=== PATIENT | female | born 1940 | race Caucasian/White ===

== ENCOUNTER → 2019-02-26 | Outpatient (CLI) | payer OTHER, MEDICARE ==
[~2019-02-26] MED LIST: ALL10TAB28; FLUTISP; LISI10TA2; PRAV40TA2
--- NOTE | 2019-02-27 07:53 | REP ---
The left hip and three views : Comparison is 02/03/2014. There is no fracture or dislocation. Mineralization and joint spaces are normal. There are no calcifications or foreign bodies. Impression: Negative left hip There is no interval change. . Electronically Signed by Richard iJmenes MD 02/26/2019 05:01 P
== END ==
LOC: M WUC 16:38
PROVIDERS: ATTEND Physician Assistant
DX: M25.552 Pain in left hip (principal)

== ENCOUNTER 2019-05-09 07:46 | Inpatient (IN) | payer OTHER, MEDICARE ==
[~2019-05-09] VITALS: Ht 165.1 cm; Wt 92.0 kg
[2019-05-09] VITALS (8 sets, daily range): BP systolic 99–151; BP diastolic 54–70
[~2019-05-09 07:46] MED LIST changes: -ALL10TAB28; +ALL10TAB29; +LISI10TA15; -LISI10TA2; -PRAV40TA2; +PRAV40TA2 PO
[2019-05-09] MEDS ORDERED: LISI10TA4 PO (07:57)
[2019-05-09] MEDS ORDERED: FISH1000 PO (07:57)
[2019-05-09 08:36] LABS: BASO # 0.1 10^3/uL (0.0-0.2); BASO % 0.9 % (0.0-1.0); EOS # 0.5 10^3/uL (0.0-0.5); EOS % 6.5 % (0.0-3.0); HEMATOCRIT 36.5 % (36.0-47.0); HEMOGLOBIN 11.3 g/dl (12.0-15.5); LYMPH # 2.2 10^3/uL (1.5-5.0); LYMPH % 26.6 % (24.0-44.0); MEAN CORPUSCULAR HEMOGLOBIN 30.1 pg (27.0-33.0); MEAN CORPUSCULAR VOLUME 97.1 fl (80.0-96.0); MONO # 0.7 10^3/uL (0.0-0.8); MONO % 8.7 % (0.0-5.0); NEUTROPHILS # 4.6 10^3/uL (1.5-8.5); NEUTROPHILS % 56.8 % (36.0-66.0); PLATELET COUNT, AUTOMATED 268 10^3/uL (150-450); RED BLOOD COUNT 3.76 10^6/uL (4.00-5.40); WHITE BLOOD COUNT 8.2 10^3/uL (4.0-10.0)
[2019-05-09 08:50] LABS: INR 1.11; PROTHROMBIN TIME 14.1 SECONDS (11.8-14.0)
[2019-05-09 08:51] LABS: PARTIAL THROMBOPLASTIN TIME 27.6 SECONDS (25.0-38.4)
[2019-05-09 09:02] LABS: ALBUMIN 2.8 GM/DL (3.2-5.2); BILIRUBIN,TOTAL 0.2 MG/DL (0.2-1.0); CALCIUM LEVEL 8.4 MG/DL (8.8-10.2); CREATININE FOR GFR 1.03 MG/DL (0.55-1.30); GLOMERULAR FILTRATION RATE 55.2 (>39); POTASSIUM SERUM 4.3 MEQ/L (3.5-5.1); TOTAL PROTEIN 6.3 GM/DL (6.4-8.2)
[2019-05-09] MEDS: GASTROGRAFIN SOLUTION 30ML PO SCH ×2 (09:10→09:46)
[2019-05-09] MEDS ORDERED: ISOVUE-370 76% 100ML VIAL (Q9967) As Ordered ONE (10:10)
--- NOTE | 2019-05-09 10:59 | REP ---
CT abdomen and pelvis with IV and oral contrast: History: Lower GI bleeding. No comparison CT study. CT contrast dose: 100 mL of intravenous Isovue 370. CT findings: Preliminary digital behavioral health director radiographs demonstrate a normal bowel gas pattern. There are clips in the right upper quadrant. Axial CT images show that the lung bases are essentially clear. There is a granulomatous calcification in the left lung base. The liver is normal in size, homogeneous in texture. There are clips in the gallbladder fossa. There is a small sliding-type hiatal hernia. There is a ventral hernia transmitting a small quantity of abdominal fat just to the right of midline in the upper abdomen. There is a very small umbilical hernia which also transmits abdominal fat. No other abdominal wall defect. The spleen has a multilobulated appearance. The kidneys enhance symmetrically. There is a peripheral cortical cyst in the left kidney 1 cm in diameter. There is a cyst in the lower pole of the right kidney which measures 2.2 cm in diameter. The kidneys are slightly malrotated. Normal caliber aorta is seen. There is pancolonic diverticulosis. This is fairly extensive. The diverticulosis is most pronounced in the sigmoid and descending segment. There is no CT evidence of diverticulitis. No colonic mass lesion is appreciated. Normal appendix is seen. Small bowel mass lesion is observed. The pancreas shows no abnormality. There is a large subserosal uterine myoma with dystrophic calcifications. This uterine fibroid measures 8.3 x 6.2 x 6.2 cm. No ovarian abnormality is seen. Urinary bladder is intact. No pelvic adenopathy is seen. Impression: Pancolonic diverticulosis, most extensively involving the left colon. There is an 8.3 cm uterine leiomyoma. There are small renal cortical cysts. Post cholecystectomy. Small hiatal hernia and fat-containing epigastric ventral and umbilical abdominal wall hernias. Electronically Signed by Linus Lomax MD 05/09/2019 11:36 A
[2019-05-09] MEDS ORDERED: SM HTAB3 PO (11:17)
[2019-05-09] MEDS ORDERED: ECOT81TA5 PO (11:17)
[2019-05-09] MEDS ORDERED: ADVI200T PO (11:17)
[2019-05-09] MEDS ORDERED: FURO20TA2 PO (11:17)
[2019-05-09] MEDS ORDERED: MELA3TAB41 PO (11:17)
[2019-05-09] MEDS ORDERED: DEXTROSE 50% 50 ML SYRINGE IV PRN (11:30)
[2019-05-09] MEDS ORDERED: GLUCOSE 4 GM CHEW TABLET PO PRN (11:30)
[2019-05-09] MEDS ORDERED: GLUCAGON FOR INJ 1 MG VIAL (J1610) SC PRN (11:30)
[2019-05-09 11:48] LABS: PERCENT SATURATION 21.9 % (13.2-45.0); THYROID STIMULATING HORMONE 0.887 uIU/ML (0.358-3.740)
[2019-05-09] MEDS: HumaLOG INSULIN (NovoLOG) PER UNIT SC SCH ×4 (12:00→21:00)
[2019-05-09 12:17] LABS: HEMOGLOBIN A1c 6.2 %
[2019-05-09] MEDS ORDERED: FUROSEMIDE 40 MG/4 ML VIAL (J1940) IV SCH (14:00)
[2019-05-09 15:04] LABS: HEMATOCRIT 34.8 % (36.0-47.0)
--- NOTE | 2019-05-09 15:22 | HPE ---
DATE OF ADMISSION: 05/09/2019 CHIEF COMPLAINT: Bright red blood per rectum. HISTORY OF PRESENT ILLNESS: 78-year-old female with a history of hypertension, hypercholesterolemia, obesity, body mass index of [address] Delfina De La Cruz in the office. Was in her usual state of health until 2:00 a.m. this morning, while she was watching television sitting up, when she thought she had soiled herself. She then went to the bathroom once and noted bright red blood. Went back to watching television, changed her clothes and had two more episodes for a total of three episodes. She had no lightheadedness, dizziness, chest pain, pressure or tightness, shortness of breath, change in gait. Says that she has had no prior episodes in the past. Denies any nausea, vomiting, abdominal pain, hematemesis, melena or black tarry stools. Patient has had no prior colonoscopy in the past and usually takes aspirin 81 mg and usually takes Aleve two tablets nightly for several years. The patient denies any epigastric discomfort, back pain, dysuria, urgency or frequency. She has had a 10 pound weight loss for the past few months, which is intentional and says that her primary care was happy about the weight loss due to obesity with BMI 33.4. No changes in appetite. Patient, otherwise denies any dysphagia, odynophagia. Denies any depression. Complains of chronic knee pain and hip pain for which she sees Dr. Castro for. Aside from Aleve, patient does not take any other nonsteroidal anti-inflammatories. In the emergency room, she was noted to be heme positive. CT abdomen and pelvis showed diverticular disease with diverticulosis extensively involving the left colon with an 8.3 uterine leiomyoma. She has a small hiatal hernia and fat-containing epigastric ventral umbilical abdominal wall hernias post cholecystectomy. No pelvic adenopathy. No colonic masses appreciated with normal appendix, small bowel mass lesions is observed. Patient states that she would prefer not to undergo any surgery and was hoping to go home tomorrow after blood transfusion and followup as an outpatient for colonoscopy or esophagogastroduodenoscopy. She agrees with stopping her aspirin and Aleve for now due to active bleeding. PAST MEDICAL HISTORY: Dyspepsia. Osteoarthritis. Degenerative joint disease (DJD). Cervical spine. Left thumb. Right shoulder. Right thumb. Lumbosacral moderate canal stenosis. Asymmetric goiter status post biopsy in 2002. Multinodular goiter. Allergic rhinitis. Renal cysts. Preventricular contractions (PVCs) status post echocardiogram. Hypertensive heart disease, [place] [facility]. No valvular disease. Grade 1 diastolic dysfunction. Lipomatous septal hypertrophy. Type 2 diabetes. Obesity, BMI of 33.4 Allergic rhinitis. PAST SURGICAL HISTORY: Cholecystectomy. Five vaginal deliveries, one surviving daughter. HOME MEDICATIONS: - Aleve two tablets nightly - melatonin nightly - aspirin 81 mg daily - azelastine nasal spray - Benadryl as needed - Bilberry daily - calcium daily - Centrum silver daily - cetirizine daily - Hair, skin and nails daily - fish oil - lisinopril - hydrochlorothiazide nightly - pravastatin 40 mg daily - Refresh as needed - Systane eye drops as needed - vitamin E daily ALLERGIES: AUGMENTIN FAMILY HISTORY: Patient is adopted and says that she has another adopted brother. SOCIAL HISTORY: Patient lives alone. Has been using a cane due to hip problems. Sees. Dr. Jimy Kee. She is a FULL CODE and has been managing well at home. She does her own errands, groceries, laundry and has had no other issues. She is able to do all of her activities of daily living (ADLs) without any difficulty. Formerly smoked previously less than 10 cigarettes a day. Quit 20 years ago. Patient denies any alcohol use at all. Previously drank [place] beer. She denies any recreational drug use. 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 Her daughter is in [place], [place]. Healthcare proxy. She is a FULL CODE with trial of oral intubation and cardiopulmonary resuscitation but states that if she is not to recover that it would be okay to remove her from a ventilator. Daughter's name is Reji Grande, phone number [phone]. REVIEW OF SYSTEMS: Per history of present illness (HPI). 12-point system otherwise negative. PHYSICAL EXAMINATION: Temperature 97.1, pulse 92, respiratory rate 19, blood pressure 106/53, 94% in room air. Generally, patient is awake, alert, oriented times three. No pallor. No icterus. No use of respiratory accessory muscles. Pupils round, reactive to light. Extraocular muscles are intact. No cervical lymphadenopathy. No jugular venous distention (JVD). Lungs are clear to auscultation. No wheezing, rales or rhonchi. Heart: S1, S2, sinus rhythm. Abdomen is soft, nontender. Nondistended. Positive bowel sounds in four quadrants. No rebound or guarding. No abdominal bruits. Extremities: No cyanosis, clubbing or pitting edema. LABORATORY DATA: White count 8.2, hemoglobin 11, hematocrit 36, platelet count 268. Previous hemoglobin was in 2000 and hemoglobin 13, hematocrit of 40. Sodium 142, potassium 4.3, chloride 108, bicarbonate 30, BUN 26, creatinine 1.03, glucose 151, A1c of 6.2, calcium 8.4, iron 58, TIBC 265, albumin of 2.8, TSH 0.887. CT abdomen and pelvis 05/09/2019: There are clips in the right upper quadrant. Lung bases are essentially clear. Granulomatous calcification in the left lung base. Liver is normal homogeneous in nature. Clips in gallbladder fossa. There is small sliding hiatal hernia. There is a ventral hernia transmitting a small amount of abdominal fat just to the right of midline and upper abdomen. There is very small umbilical hernia, which also transmits abdominal fat. No other abdominal wall defect. Spleen has a multilobulated appearance. Kidneys enhance symmetrically. Peripheral cortical cysts in the left kidney 1 cm in diameter. Cysts in the lower pole of the right kidney, which measures 2.2 cm in diameter. Kidneys are slightly malrotated, normal caliber. Aorta is seen pancolonic diverticulosis. This is fairly extensive. Diverticulosis is less pronounced in the sigmoid and descending segment. There is no CT evidence of diverticulitis. No colonic mass lesion is appreciated. Normal appendix. Small bowel mass lesion is observed. Pancreas shows no abnormality. There is a large subserosal uterine myoma with dystrophic calcifications. Uterine fibroid measuring 8.3 x 6.2 x 6.2 cm. No ovarian abnormality is seen. Urinary bladder is intact. No pelvic adenopathy is seen. IMPRESSION: Woo colonic diverticulosis most extensively involving the left colon. There is an 8.3 cm uterine leiomyoma. There are small renal cortical cysts post cholecystectomy. There is a small hiatal hernia and fat containing epigastric, ventral and umbilical abdominal wall hernias. ASSESSMENT/PLAN: This is a 78-year-old female with history of hypertension, diabetes, obesity, BMI of 31, dyspepsia, osteoarthritis, multinodular goiter, allergic rhinitis, no prior colonoscopy presents with acute onset of bright red blood per rectum with chronic use of aspirin and Aleve. The patient will be admitted as an inpatient for two midnights with the following issues: Bright red blood per rectum: Lower GI bleed. Patient has diverticular bleeding with pancolonic diverticulitis, diverticulosis, which is fairly extensive. Patient's aspirin and Aleve have been discontinued. She will be given red blood cell transfusion two units. Consent has been signed. Repeat hemoglobin and hematocrit every 12 hours. Patient does not want to have any surgery. She has been instructed to followup with gastroenterology referral as outpatient for immediate colonoscopy. There is an incidental finding of a small bowel lesion that is somewhat concerning. Will refer to [facility]. If patient should continue to have ongoing lower GI bleed, patient may need a colonoscopy and EGD during admission. Capsule endoscopy as an outpatient. Small Bowel Mass. pt did not want surgery, but urged to follow up with GI and PCP to refer to surgery for exploratory laparotomy to rule out GIST tumor versus malignancy. Pt will need a close follow up with her PCP for immediate referral to Surgery for evaluation. Grade 1 diastolic dysfunction due to hypertensive heart disease. Patient's Lasix and lisinopril will be held due to low blood pressure of 90-100 systolic. Will resume when the patient's blood pressure is improved. Hiatal hernia and umbilical hernias: Will start on proton pump inhibitor (PPI) for now. Patient denies any dysphagia or odynophagia that would necessitate an upper GI series. Dyslipidemia: Continue on Pravastatin once GI bleed has resolved. . Chronic insomnia: May take melatonin if no active GI bleed. Obesity and metabolic syndrome: BMI of 33.4, hypertension, diabetes. Check lipid profile in the morning. Adjust medications if needed. Type 2 diabetes: Continue on clear essential liquids this evening. If no ongoing GI bleed, advanced to consistent carbohydrate, no added salt in the morning. Continue her fingersticks every morning and night with coverage. Compression stockings for deep venous thrombosis (DVT) prophylaxis. CODE STATUS: FULL CODE. Trial of intubation and cardiopulmonary resuscitation. Healthcare proxy is the patient's daughter Reji Grande phone number [phone]. [facility]
--- NOTE | 2019-05-09 20:35 | ECGEPIP ---
[facility] - ED Test Date: 2019-05-09 Pat Name: BETZY ALMEIDA Department: Room: [place] [address] Gender: Female Home Help Aide: KYLIE : 1940 Requested By: Harvinder Hudson Order Number: [id number] Reading MD: Harvinder Simental Measurements Intervals [place] Rate: 97 P: 66 RI: 193 QRS: 73 QRSD: 77 T: 45 QT: 308 QTc: 392 Interpretive Statements SINUS RHYTHM POSSIBLE LEFT ATRIAL ENLARGEMENT POOR R WAVE PROGRESSION NO PRIORS FOR COMPARISON Electronically Signed on 05-09-2019 20:35:16 EDT by Harvinder Simental
[2019-05-09] MEDS ORDERED: MELATONIN 3MG (PATIENT'S OWN MED) PO SCH (21:00)
[2019-05-09 21:21] LABS: HEMOGLOBIN 11.6 g/dl (12.0-15.5)
[2019-05-09] MEDS: diphenhydrAMINE 50 MG CAP PO PRN (21:26)
[2019-05-09] MEDS: PANTOPRAZOLE 40MG INJ (PROTONIX) (C9113) IV SCH (21:26)
[2019-05-10] VITALS: BP 100/50
[2019-05-10 04:00] VITALS: BP 100/51
[2019-05-10 05:57] LABS: HEMATOCRIT 33.3 % (36.0-47.0); HEMOGLOBIN 10.6 g/dl (12.0-15.5); MEAN CORPUSCULAR HEMOGLOBIN 29.9 pg (27.0-33.0); MEAN CORPUSCULAR HGB CONC 31.8 g/dl (32.0-36.5); MEAN CORPUSCULAR VOLUME 93.8 fl (80.0-96.0); PLATELET COUNT, AUTOMATED 229 10^3/uL (150-450); RED BLOOD COUNT 3.55 10^6/uL (4.00-5.40); WHITE BLOOD COUNT 7.8 10^3/uL (4.0-10.0)
[2019-05-10 06:25] LABS: BLOOD UREA NITROGEN 22 MG/DL (7-18); CALCIUM LEVEL 8.2 MG/DL (8.8-10.2); CARBON DIOXIDE LEVEL 32 MEQ/L (21-32); CHLORIDE LEVEL 106 MEQ/L (98-107); CREATININE FOR GFR 0.87 MG/DL (0.55-1.30); GLOMERULAR FILTRATION RATE > 60.0 (>39); GLUCOSE, FASTING 94 MG/DL (70-100); POTASSIUM SERUM 4.3 MEQ/L (3.5-5.1); SODIUM LEVEL 140 MEQ/L (136-145)
[2019-05-10] MEDS: HumaLOG INSULIN (NovoLOG) PER UNIT SC SCH ×4 (07:30→21:00)
[2019-05-10 08:00] VITALS: BP 129/60
[2019-05-10] MEDS: PANTOPRAZOLE 40MG INJ (PROTONIX) (C9113) IV SCH ×2 (08:54→21:18)
[2019-05-10] MEDS ORDERED: SLF 3 ML SYR IV PRN (10:45)
[2019-05-10 12:00] VITALS: BP 113/57
[2019-05-10 12:31] LABS: HEMATOCRIT 32.6 % (36.0-47.0); HEMOGLOBIN 10.6 g/dl (12.0-15.5); MEAN CORPUSCULAR HEMOGLOBIN 30.7 pg (27.0-33.0); MEAN CORPUSCULAR HGB CONC 32.5 g/dl (32.0-36.5); MEAN CORPUSCULAR VOLUME 94.5 fl (80.0-96.0); PLATELET COUNT, AUTOMATED 224 10^3/uL (150-450); RED BLOOD COUNT 3.45 10^6/uL (4.00-5.40); WHITE BLOOD COUNT 7.5 10^3/uL (4.0-10.0)
[2019-05-10] MEDS: SLF 3 ML SYR IV SCH ×2 (14:00→21:19)
--- NOTE | 2019-05-10 15:26 | IPNPDOC ---
Date Seen The patient was seen on 05/10/19. Progress Note SUBJECTIVE: 78-year-old female with past medical history of hypertension, hyperlipidemia and diabetes, was admitted for GI bleed. She reports bright red blood per rectum starting to 3 days ago, last episode of bloody bowel movement was earlier today; patient received 1 unit of PRBC yesterday with subsequent downtrending hemoglobin. She is currently sleepy and fatigued, denies any shortness of breath, chest pain, abdominal pain, nausea, vomiting at this time. CT scan of the abdomen was consistent with adan-colonic diverticulosis, denies any previous history of GI bleed. 10 point review of system was negative except for above OBJECTIVE PHYSICAL EXAMINATION: VITAL SIGNS: Please see below. GENERAL: No Distress HEENT: Normocephalic, atraumatic, moist mucous membranes CARDIOVASCULAR: S1, S2. RESPIRATORY: Clear to auscultation. ABDOMINAL: Soft, nontender, nondistended, positive bowel sounds EXTREMITIES: Range of Motion intact NEUROLOGICAL: Alert and oriented 3, no focal deficits PSYCHOLOGICAL: Home LABORATORY DATA, IMAGING STUDIES, MICROBIOLOGY: Please see below. DVT prophylaxis ordered?: No ASSESSMENT AND PLAN: 78-year-old female with past medical history of hypertension, diabetes, presents with acute GI bleed, likely diverticular. PROBLEMS: 1. GI bleed: Clear liquid diet, PPI, GI eval pending, plan for colonoscopy tomorrow. Status post 1 unit PRBC yesterday, hemoglobin downtrending, repeat H&H in the afternoon stable, we'll continue to monitor and transfuse as needed. 2. Hypertension: Home meds being held for low normal blood pressure, will resume when stabil ized. 3. Diabetes mellitus: Sliding scale insulin daily at bedtime and before meals DVT prophylaxis: SCDs. GI prophylaxis: PPI VS, I&O, 24H, Fishbone Vital Signs/I&O Vital Signs Date Time Temp Pulse Resp B/P (MAP) Pulse Ox O2 Delivery O2 Flow Rate FiO2 05/10/19 12:00 98.7 90 18 113/57 (75) 93 05/09/19 11:31 Room Air I&O- Last 24 Hours up to 6 AM 05/10/19 06:00 Intake Total 590 ml Output Total 550 ml Balance 40 ml Laboratory Data 24H LABS Laboratory Tests 2 05/09/19 17:22: Bedside Glucose (Misc Panel) 88 10/9/19 05:32: Nucleated Red Blood Cells % (auto) 0.0, Anion Gap 2L, Glomerular Filtration Rate > 60.0, Blood Urea Nitrogen 22H, Creatinine 0.87, Sodium Level 140, Potassium Level 4.3, Chloride Level 106, Carbon Dioxide Level 32, Calcium Level 8.2L 05/10/19 12:15: Nucleated Red Blood Cells % (auto) 0.0 CBC/BMP Laboratory Tests 05/09/19 21:09 05/10/19 05:32 Red Blood Count 3.55 L, Mean Corpuscular Volume 93.8, Mean Corpuscular Hemoglobin 29.9, Mean Corpuscular Hemoglobin Concent 31.8 L, Red Cell Distribution Width 14.7 H, Calcium Level 8.2 L 05/10/19 12:15 Red Blood Count 3.45 L, Mean Corpuscular Volume 94.5, Mean Corpuscular Hemoglobin 30.7, Mean Corpuscular Hemoglobin Concent 32.5, Red Cell Distribution Width 14.7 H Microbiology Microbiology 05/10/19 Stool Occult Blood (MARISOL) - Final, Complete 05/10/19 Gastrointestinal Tract Panel (PCR) - Final, Complete QUINTON ARGUELLO MD May 10, 2019 15:26
[2019-05-10 16:00] VITALS: BP 120/58
--- NOTE | 2019-05-10 17:35 | CR.PDOC ---
General Date of Consultation: May 10, 2019 Referring Provider: ROSE MARIE GILLIAM MD Attending Physician: CALISTA PENA MD Consultation Primary physician/ hospitalist: Dr. Delfina Chandra/ Dr. Gilliam Reason for consult: Rectal bleeding. HPI: 78-year-old female patient with history of hypertension, hypercholesterolemia, obesity (BMI 33), presented to ER for complaints of bloody bowel movements at home. GI was consulted for the same. Patient reports having acute onset bright red rectal bleeding, couple of days ago, Patient reports having acute onset rectal bleeding, with bright red blood, started while at rest, no associated abdominal pain, not resolving, so came to ER. Patient denies any prior similar episodes, no constipation prior to symptoms onset. Patient does report taking da tanesha NSAIDs for few weeks prior to symptoms onset. Pertinent negative GI symptoms: Patient denies nausea, vomiting, diarrhea, abdominal pain, loss of appetite, early satiety or unintentional weight loss. No history of hematemesis, melena or hematochezia. Patient reports regular bowel movements. Review of Systems: GI: as stated above CVS: No chest pain, No palpitations, No leg swelling. RS: No Shortness of breath, No Wheezing, no cough QUALITY ASSURANCE PRACTICE MANAGER: No dizziness, No motor weakness, No sensory problems Hematology: No bruising, No gum bleeding, Musculoskeletal: No joint pain, ambulating well. Skin: No rash : No hematuria, No burning sensation of the urine ENT: No ear discharge/ pain, No dysphagia. Eyes: No photophobia. Home medications: reviewed. Antithrombotic agents - on ASA 81 mg. Medical h/o: As above. Surgical h/o: Tubal ligation Social h/o: Alcohol- Denies , tobacco- Denies , IVDA/ drugs- Denies . Family h/o of GI cancers No GI cancers Prior Endoscopies: None in Past. Prior GI evaluation: None in [facility] Exam: Vitals: reviewed General: Alert and oriented x 3, not in distress HEENT: Mild pallor, no icterus. Normal oropharynx, NO cervical lymph nodes. Chest: symmetric with bilateral clear air entry, CVS: S1, S2 heard, normal, no murmurs . Abdomen: non-distended, no surgical scars, soft, non-tender, no palpable masses, normal bowel sounds heard. Rectal exam: Patient refused / Deferred at this time in view of scheduled colonoscopy. Extremities: no pedal edema, pulses palpable. QUALITY ASSURANCE PRACTICE MANAGER: no focal motor or sensory deficits. Moves all extremities Skin: no rash. Labs: reviewed. Imaging tests: reviewed CT abdomen images reviewed with radiology No small bowel lesion. She does have large uterine fibroid and renal cyst. Impression: - 78 year old female patient with acute onset painless rectal bleeding, and prior use of NSAIDsm labs showing drop in Hemoglobin and elevated BUN/ Cr Likely lower GI bleeding from Diverticulosis vs Less likely Colon mass vs AVMs. Also need to rule out upper GI bleeding. Recommendations: - Patient educated about the test results, possible differential diagnoses and All questions answered. - Monitor H/H and transfuse as needed to keep Hemoglobin around 8-9gm/dL. - No contraindication for aspirin. Patient can continue it if needed for cardiac purposes. - Will schedule for urgent EGD and Colonoscopy after bowel prep. - The procedures, indications, risks (bleeding, perforation, infection, hypotension, respiratory depression, allergy, need for endotracheal intubation, surgery, colostomy, cardiac arrest, even ), benefits, limitations (e.g., missing a lesion), and all other alternatives (including no intervention) were explained to the patient who understood and agreed for the procedures. - Follow operative notes for post procedure recommendations. Plan of care discussed with patient and primary team. Patient verbalized understanding and agreed with the plan. Vital Signs/I&O Vital Signs Date Time Temp Pulse Resp B/P (MAP) Pulse Ox O2 Delivery O2 Flow Rate FiO2 05/10/19 16:00 98.4 95 18 120/58 (78) 94 05/09/19 11:31 Room Air I&O- Last 24 Hours up to 6 AM 05/10/19 06:00 Intake Total 590 ml Output Total 550 ml Balance 40 ml Laboratory Data CBC/BMP Laboratory Tests 05/09/19 21:09 05/10/19 05:32 Red Blood Count 3.55 L, Mean Corpuscular Volume 93.8, Mean Corpuscular Hemoglobin 29.9, Mean Corpuscular Hemoglobin Concent 31.8 L, Red Cell Distribution Width 14.7 H, Calcium Level 8.2 L 05/10/19 12:15 Red Blood Count 3.45 L, Mean Corpuscular Volume 94.5, Mean Corpuscular Hemoglobin 30.7, Mean Corpuscular Hemoglobin Concent 32.5, Red Cell Distribution Width 14.7 H Allergies Coded Allergies: No Known Allergies (Unverified , 05/09/19) Home Medications Scheduled Aspirin (Ecotrin) 81 Mg Tablet.dr, 81 MG PO QHS, (Reported) Furosemide (Furosemide) 20 Mg Tablet, 20 MG PO BID, (Reported) Ibuprofen (Advil) 200 Mg Tablet, 400 MG PO QHS, (Reported) Lisinopril (Lisinopril) 10 Mg Tablet, 10 MG PO QHS, (Reported) Melatonin (Melatonin) 3 Mg Tablet, 3 MG PO QHS, (Reported) Multivitamin with Minerals (Hair, Skin and Nails) 1 Each Tablet, 1 TAB PO DAILY, (Reported) [place]-3 Fatty Acids/Fish Oil (Fish Oil 1,000 mg Capsule) 1 Each Capsule, 1,000 MG PO QHS, (Reported) Pravastatin Sodium (Pravastatin Sodium) 40 Mg Tablet, 40 MG PO QHS, (Reported) CALISTA PENA MD May 10, 2019 17:35
[2019-05-10 20:00] VITALS: BP 140/67
[2019-05-10] MEDS ORDERED: BISACODYL 5 MG TAB PO ONE (20:00)
[2019-05-10] MEDS ORDERED: GOLYTELY SOLN 4000 ML BTL PO ONE (20:00)
[2019-05-10 20:15] LABS: HEMATOCRIT 33.8 % (36.0-47.0); HEMOGLOBIN 10.8 g/dl (12.0-15.5)
[2019-05-11] VITALS (7 sets, daily range): BP systolic 104–155; BP diastolic 55–76
[2019-05-11] MEDS: diphenhydrAMINE 50 MG CAP PO PRN ×2 (01:08→23:04)
[2019-05-11 03:06] LABS: HEMATOCRIT 35.7 % (36.0-47.0); HEMOGLOBIN 11.4 g/dl (12.0-15.5)
[2019-05-11 03:10] LABS: MEAN CORPUSCULAR HEMOGLOBIN 30.1 pg (27.0-33.0); MEAN CORPUSCULAR HGB CONC 32.2 g/dl (32.0-36.5); MEAN CORPUSCULAR VOLUME 93.5 fl (80.0-96.0); PLATELET COUNT, AUTOMATED 239 10^3/uL (150-450); RED BLOOD COUNT 3.82 10^6/uL (4.00-5.40); WHITE BLOOD COUNT 9.4 10^3/uL (4.0-10.0)
[2019-05-11 03:38] LABS: BLOOD UREA NITROGEN 16 MG/DL (7-18); CALCIUM LEVEL 8.3 MG/DL (8.8-10.2); CARBON DIOXIDE LEVEL 29 MEQ/L (21-32); CHLORIDE LEVEL 106 MEQ/L (98-107); CREATININE FOR GFR 0.77 MG/DL (0.55-1.30); GLOMERULAR FILTRATION RATE > 60.0 (>39); GLUCOSE, FASTING 93 MG/DL (70-100); POTASSIUM SERUM 4.2 MEQ/L (3.5-5.1); SODIUM LEVEL 140 MEQ/L (136-145)
[2019-05-11] MEDS: SLF 3 ML SYR IV SCH ×3 (05:38→22:28)
[2019-05-11] MEDS: HumaLOG INSULIN (NovoLOG) PER UNIT SC SCH ×4 (07:30→21:00)
[2019-05-11] MEDS ORDERED: MIRALAX *UNIT DOSE* 17GM PACKET PO PRN ×2 (08:00→12:00)
[2019-05-11] MEDS: PANTOPRAZOLE 40MG INJ (PROTONIX) (C9113) IV SCH ×2 (09:21→21:56)
[2019-05-11 09:30] LABS: HEMATOCRIT 33.7 % (36.0-47.0); HEMOGLOBIN 10.9 g/dl (12.0-15.5)
[2019-05-11] MEDS ORDERED: PROPOFOL 200 MG/20 ML VIAL As Ordered ONE (10:57)
[2019-05-11] MEDS ORDERED: LIDOCAINE 2% INJ 100 MG/5 ML SDV (FOR ANES.) As Ordered ONE (10:57)
[2019-05-11] MEDS ORDERED: fentaNYL 100 MCG/2 ML INJECTION (J3010) As Ordered ONE (10:57)
--- NOTE | 2019-05-11 11:54 | ROOR ---
Patient Name: Maru Guaman Procedure Date: 05/11/2019 10:55 AM Date of : 1940 Age: 78 Room: [facility] Gender: Female Note Status: Finalized Procedure: Upper GI endoscopy Indications: Acute post hemorrhagic anemia Providers: Abdulkadir Leon MD Referring MD: Delfina NEWMAN MD Requesting Provider: Medicines: Monitored Anesthesia Care Complications: No immediate complications. Procedure: Pre-Anesthesia Assessment: - Prior to the procedure, a History and Physical was performed, and patient medications and allergies were reviewed. The patient is competent. The risks and benefits of the procedure and the sedation options and risks were discussed with the patient. All questions were answered and informed consent was obtained. Patient identification and proposed procedure were verified by the physician, the nurse and the anesthesiologist in the procedure room. Mental Status Examination: alert and oriented. Airway Examination: normal oropharyngeal airway and neck mobility. Respiratory Examination: clear to auscultation. CV Examination: normal. Prophylactic Antibiotics: The patient does not require prophylactic antibiotics. Prior Anticoagulants: The patient has taken no previous anticoagulant or antiplatelet agents. ASA Grade Assessment: III - A patient with severe systemic disease. After reviewing the risks and benefits, the patient was deemed in satisfactory condition to undergo the procedure. The anesthesia plan was to use monitored anesthesia care (MAC). Immediately prior to administration of medications, the patient was re-assessed for adequacy to receive sedatives. The heart rate, respiratory rate, oxygen saturations, blood pressure, adequacy of pulmonary ventilation, and response to care were monitored throughout the procedure. The physical status of the patient was re-assessed after the procedure. The Endoscope was introduced through the mouth, and advanced to the second part of duodenum. The upper GI endoscopy was accomplished without difficulty. The patient tolerated the procedure well. Findings: The Z-line was regular and was found 37 cm from the incisors. A medium-sized hiatal hernia was present. Scattered moderate inflammation characterized by erosions, friability and granularity was found in the gastric antrum. Biopsies were taken with a cold forceps for Helicobacter pylori testing. Verification of patient identification for the specimen was done by the physician and nurse using the patient's name, date and medical record number. Estimated blood loss was minimal. Localized nodular mucosa was found in the duodenal bulb. Biopsies were taken with a cold forceps for histology. The second portion of the duodenum was normal. Impression: - Z-line regular, 37 cm from the incisors. - Medium-sized hiatal hernia. - Gastritis. Biopsied. - Nodular mucosa in the duodenal bulb. Biopsied. - Normal second portion of the duodenum. Recommendation: - Patient has a contact number available for emergencies. The signs and symptoms of potential delayed complications were discussed with the patient. Return to normal activities tomorrow. Written discharge instructions were provided to the patient. - High fiber diet. - Continue present medications. 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 - No ibuprofen, naproxen, or other non-steroidal anti-inflammatory drugs. - Await pathology results. - If Biopsy shows H. pylori will need therapy with antibiotic course.. - Return to primary care physician. Abdulkadir Leon MD Abdulkadir Leon MD 05/11/2019 11:53:54 AM Electronically signed by Abdulkadir Leon MD Number of Addenda: 0 Note Initiated On: 05/11/2019 10:55 AM Estimated Blood Loss: Estimated blood loss was minimal.
--- NOTE | 2019-05-11 12:22 | ROOR ---
Patient Name: Maru Guaman Procedure Date: 05/11/2019 10:55 AM Date of : 1940 Age: 78 Room: [facility] Gender: Female Note Status: Finalized Procedure: Colonoscopy Indications: Hematochezia Providers: Abdulkadir Leon MD Referring MD: Delfina NEWMAN MD Requesting Provider: Medicines: Monitored Anesthesia Care Complications: No immediate complications. Estimated blood loss: Minimal. Procedure: Pre-Anesthesia Assessment: - Prior to the procedure, a History and Physical was performed, and patient medications and allergies were reviewed. The patient is competent. The risks and benefits of the procedure and the sedation options and risks were discussed with the patient. All questions were answered and informed consent was obtained. Patient identification and proposed procedure were verified by the physician, the nurse and the anesthesiologist in the procedure room. Mental Status Examination: alert and oriented. Airway Examination: normal oropharyngeal airway and neck mobility. Respiratory Examination: clear to auscultation. CV Examination: normal. Prophylactic Antibiotics: The patient does not require prophylactic antibiotics. Prior Anticoagulants: The patient has taken no previous anticoagulant or antiplatelet agents. ASA Grade Assessment: III - A patient with severe systemic disease. After reviewing the risks and benefits, the patient was deemed in satisfactory condition to undergo the procedure. The anesthesia plan was to use monitored anesthesia care (MAC). Immediately prior to administration of medications, the patient was re-assessed for adequacy to receive sedatives. The heart rate, respiratory rate, oxygen saturations, blood pressure, adequacy of pulmonary ventilation, and response to care were monitored throughout the procedure. The physical status of the patient was re-assessed after the procedure. The Colonoscope was introduced through the anus and advanced to the terminal ileum, with identification of the appendiceal orifice and IC valve. The colonoscopy was performed without difficulty. The patient tolerated the procedure well. The quality of the bowel preparation was good. The terminal ileum, ileocecal valve, appendiceal orifice, and rectum were photographed. Scope insertion time was 3 minutes. Scope withdrawal time was 11 minutes. The total duration of the procedure was 14 minutes. Findings: The perianal and digital rectal examinations were normal. The terminal ileum appeared normal. A 5 mm polyp was found in the cecum. The polyp was sessile. The polyp was removed with a cold snare. Resection and retrieval were complete. Verification of patient identification for the specimen was done by the physician and nurse using the patient's name, date and medical record number. Estimated blood loss was minimal. Two sessile polyps were found in the transverse colon. The polyps were 5 to 10 mm in size. These polyps were removed with a cold snare. Resection and retrieval were complete. To close a defect after polypectomy, one hemostatic clip was successfully placed. There was no bleeding at the end of the procedure. Multiple small and large-mouthed diverticula were found from sigmoid to ascending colon. There was no evidence of diverticular bleeding. Non-bleeding external and internal hemorrhoids were found during retroflexion. The hemorrhoids were medium-sized. Impression: - The examined portion of the ileum was normal. - One 5 mm polyp in the cecum, removed with a cold snare. Resected and retrieved. - Two 5 to 10 mm polyps in the transverse colon, removed with a cold snare. Resected and retrieved. Clip was placed. - Severe diverticulosis from sigmoid to ascending colon. There was no evidence of diverticular bleeding. - Non-bleeding external and internal hemorrhoids. Recommendation: - Patient has a contact number available for emergencies. The signs and symptoms of potential delayed complications were discussed with the patient. Return to normal activities tomorrow. Written discharge instructions were provided to the patient. - High fiber diet. - Continue present medications. - Colace capsule(s) orally 100 mg BID. - Senokot-S 2 tablets PO q HS. - Miralax 1 capful (17 grams) in 8 ounces of water PO PRN if persistent constipation despite above medication. - Await pathology results. - Repeat colonoscopy in 3 - 5 years for surveillance based on pathology results and depending on clinical and functional status. - Telephone GI clinic for pathology results in 2 weeks. - Return to primary care physician. Abdulkadir Leon MD Abdulkadir Leon MD 05/11/2019 12:22:00 PM Electronically signed by Abdulkadir Leon MD Number of Addenda: 0 Note Initiated On: 05/11/2019 10:55 AM Estimated Blood Loss: Estimated blood loss was minimal.
[2019-05-11 15:13] LABS: HEMATOCRIT 32.4 % (36.0-47.0); HEMOGLOBIN 10.3 g/dl (12.0-15.5)
--- NOTE | 2019-05-11 15:43 | IPNPDOC ---
Date Seen The patient was seen on 05/11/19. Progress Note SUBJECTIVE: 78 y/o F with PMH of hypertension, hyperlipidemia and diabetes, was admitted for GI bleed. She reports bright red blood per rectum starting to 3 days ago, last episode of bloody bowel movement was earlier today; patient received 1 unit of PRBC with subsequent downtrending hemoglobin. Pt was seen and examined at bedside. Pt stated that she is feeling fine and did not have any complaint. Denied active GI bleeding. 10 point review of system was negative except for above OBJECTIVE PHYSICAL EXAMINATION: VITAL SIGNS: Please see below. GENERAL: No Distress HEENT: Normocephalic, atraumatic, moist mucous membranes CARDIOVASCULAR: S1, S2. RESPIRATORY: Clear to auscultation. ABDOMINAL: Soft, nontender, nondistended, positive bowel sounds EXTREMITIES: Range of Motion intact NEUROLOGICAL: Alert and oriented 3, no focal deficits PSYCHOLOGICAL: Home LABORATORY DATA, IMAGING STUDIES, MICROBIOLOGY: reviewed, Please see below. DVT prophylaxis ordered?: IPC, no chemical ppx in view of concern of GI bleeding. ASSESSMENT AND PLAN: 78-year-old female with past medical history of hypertension, diabetes, presents with acute GI bleed, likely diverticular. PROBLEMS: 1. GI bleed: Clear liquid diet, PPI, Status post 1 unit PRBC - GI recommendations appreciated; s/p colonoscopy and EGD. will f/u repeat H/H 2. Hypertension: will resume home meds 3. Diabetes mellitus: Sliding scale insulin daily at bedtime and before meals DVT prophylaxis: SCDs. GI prophylaxis: PPI VS, I&O, 24H, Fishbone Vital Signs/I&O Vital Signs Date Time Temp Pulse Resp B/P (MAP) Pulse Ox O2 Delivery O2 Flow Rate FiO2 05/11/19 12:20 97.1 92 18 155/74 (101) 92 05/09/19 11:31 Room Air I&O- Last 24 Hours up to 6 AM 05/11/19 06:00 Intake Total 2110 ml Output Total 201 ml Balance 1909 ml Laboratory Data 24H LABS Laboratory Tests 2 05/10/19 17:06: Bedside Glucose (Misc Panel) 89 05/10/19 21:35: Bedside Glucose (Misc Panel) 99 05/11/19 02:58: Nucleated Red Blood Cells % (auto) 0.0, Anion Gap 5L, Glomerular Filtration Rate > 60.0, Blood Urea Nitrogen 16, Creatinine 0.77, Sodium Level 140, Potassium Level 4.2, Chloride Level 106, Carbon Dioxide Level 29, Calcium Level 8.3L 05/11/19 12:41: Bedside Glucose (Misc Panel) 101 CBC/BMP Laboratory Tests 05/10/19 19:53 05/11/19 02:58 Red Blood Count 3.82 L, Mean Corpuscular Volume 93.5, Mean Corpuscular Hemoglobin 30.1, Mean Corpuscular Hemoglobin Concent 32.2, Red Cell Distribution Width 14.4, Calcium Level 8.3 L 05/11/19 09:07 05/11/19 15:03 Microbiology Microbiology 05/10/19 Stool Occult Blood (MARISOL) - Final, Complete 05/10/19 Gastrointestinal Tract Panel (PCR) - Final, Complete FRANCI WALDEN MD May 11, 2019 15:43
[2019-05-11 21:07] LABS: HEMOGLOBIN 9.9 g/dl (12.0-15.5)
[2019-05-11] MEDS: DOCUSATE SODIUM 100 MG CAP PO SCH (21:56)
[2019-05-12 05:41] LABS: HEMATOCRIT 28.9 % (36.0-47.0); HEMOGLOBIN 9.2 g/dl (12.0-15.5); MEAN CORPUSCULAR HEMOGLOBIN 30.4 pg (27.0-33.0); MEAN CORPUSCULAR HGB CONC 31.8 g/dl (32.0-36.5); MEAN CORPUSCULAR VOLUME 95.4 fl (80.0-96.0); PLATELET COUNT, AUTOMATED 213 10^3/uL (150-450); RED BLOOD COUNT 3.03 10^6/uL (4.00-5.40); WHITE BLOOD COUNT 7.5 10^3/uL (4.0-10.0)
[2019-05-12 05:58] LABS: BLOOD UREA NITROGEN 18 MG/DL (7-18); CALCIUM LEVEL 7.7 MG/DL (8.8-10.2); CARBON DIOXIDE LEVEL 30 MEQ/L (21-32); CHLORIDE LEVEL 111 MEQ/L (98-107); CREATININE FOR GFR 0.83 MG/DL (0.55-1.30); GLOMERULAR FILTRATION RATE > 60.0 (>39); GLUCOSE, FASTING 93 MG/DL (70-100); POTASSIUM SERUM 3.9 MEQ/L (3.5-5.1); SODIUM LEVEL 146 MEQ/L (136-145)
[2019-05-12 06:00] VITALS: BP 165/72
[2019-05-12] MEDS: SLF 3 ML SYR IV SCH (06:05)
[2019-05-12] MEDS: HumaLOG INSULIN (NovoLOG) PER UNIT SC SCH ×2 (07:21→12:00)
[2019-05-12 07:36] VITALS: BP 128/71
[2019-05-12] MEDS: PANTOPRAZOLE 40MG INJ (PROTONIX) (C9113) IV SCH (08:57)
[2019-05-12] MEDS: DOCUSATE SODIUM 100 MG CAP PO SCH (08:57)
[2019-05-12 11:33] VITALS: BP 140/72
[2019-05-12 12:09] LABS: HEMATOCRIT 32.8 % (36.0-47.0); HEMOGLOBIN 10.5 g/dl (12.0-15.5); MEAN CORPUSCULAR HEMOGLOBIN 30.4 pg (27.0-33.0); MEAN CORPUSCULAR VOLUME 95.1 fl (80.0-96.0); PLATELET COUNT, AUTOMATED 250 10^3/uL (150-450); RED BLOOD COUNT 3.45 10^6/uL (4.00-5.40); WHITE BLOOD COUNT 8.4 10^3/uL (4.0-10.0)
[2019-05-12] MEDS ORDERED: PROTPAK PO (12:58)
--- NOTE | 2019-05-12 15:34 | DS.PDOC ---
Discharge Summary General Date of Admission May 09, 2019 at 11:14 Date of Discharge 05/12/2019 Attending Physician: QUINTON ARGUELLO MD Discharge Summary PROCEDURES PERFORMED DURING STAY: EGD and colonoscopy. ADMITTING DIAGNOSES: 1. GI bleed. DISCHARGE DIAGNOSES: 1. GI bleed. COMPLICATIONS/CHIEF COMPLAINT: Diverticulosis Of Colon With Hemorrhage. HISTORY OF PRESENT ILLNESS: 78-year-old female with past medical history of diabetes, hypertension, admitted for GI bleed, status post 1 unit of PRBC, underwent EGD and colonoscopy, extensive diverticular disease, no active source of bleeding was identified. Patient has not had any bloody bowel movements for the past 24-48 hours, tolerating diet, without any complaints, ambulating, clear for discharge by GI. Patient likely had lower GI bleed, source presumed to be diverticulosis. HOSPITAL COURSE: As above. DISCHARGE MEDICATIONS: Please see below. ALLERGIES: Please see below. PHYSICAL EXAMINATION: VITAL SIGNS: Please see below. GENERAL: No distress HEENT: Normocephalic, atraumatic, moist mucous membranes NECK: Supple CARDIOVASCULAR EXAMINATION: S1, S2, no murmurs RESPIRATORY EXAMINATION: Clear to auscultation, no wheezing ABDOMINAL EXAMINATION: Soft, nontender, nondistended, positive bowel sounds EXTREMITIES: Patient motion intact SKIN: No rash NEUROLOGICAL EXAMINATION: Alert and oriented 3, no focal deficits PSYCHIATRIC EXAMINATION: Calm and cooperative LABORATORY DATA: Please see below. IMAGING: CT abdomen with extensive diverticular disease PROGNOSIS: Good ACTIVITY: As tolerated. DIET: High fiber, consistent carbs DISCHARGE PLAN: Please follow with gastroenterology and PCP within 1-2 weeks DISPOSITION: 01 Home, Self-Care. DISCHARGE INSTRUCTIONS: 1. . As above DISCHARGE CONDITION: Stable. TIME SPENT ON DISCHARGE: Greater than 34 minutes. Vital Signs/I&Os Vital Signs Date Time Temp Pulse Resp B/P (MAP) Pulse Ox O2 Delivery O2 Flow Rate FiO2 05/12/19 11:33 97.8 99 18 140/72 (94) 92 05/09/19 11:31 Room Air I&O- Last 24 Hours up to 6 AM 05/12/19 06:00 Intake Total 330 ml Output Total 300 ml Balance 30 ml Laboratory Data Labs 24H Laboratory Tests 2 05/12/19 05:17: Nucleated Red Blood Cells % (auto) 0.0, Anion Gap 5L, Glomerular Filtration Rate > 60.0, Blood Urea Nitrogen 18, Creatinine 0.83, Sodium Level 146H, Potassium L evel 3.9, Chloride Level 111H, Carbon Dioxide Level 30, Calcium Level 7.7L 05/12/19 11:41: Nucleated Red Blood Cells % (auto) 0.0 CBC/BMP Laboratory Tests 05/11/19 20:52 05/12/19 05:17 Red Blood Count 3.03 L, Mean Corpuscular Volume 95.4, Mean Corpuscular Hemoglobin 30.4, Mean Corpuscular Hemoglobin Concent 31.8 L, Red Cell Distribution Width 14.2, Calcium Level 7.7 L 05/12/19 11:41 Red Blood Count 3.45 L, Mean Corpuscular Volume 95.1, Mean Corpuscular Hemoglobin 30.4, Mean Corpuscular Hemoglobin Concent 32.0, Red Cell Distribution Width 14.2 Microbiology Microbiology 05/10/19 Stool Occult Blood (MARISOL) - Final, Complete 05/10/19 Gastrointestinal Tract Panel (PCR) - Final, Complete Discharge Medications Scheduled Aspirin (Ecotrin) 81 Mg Tablet.dr, 81 MG PO QHS, (Reported) Furosemide (Furosemide) 20 Mg Tablet, 20 MG PO BID, (Reported) Lisinopril (Lisinopril) 10 Mg Tablet, 10 MG PO QHS, (Reported) Melatonin (Melatonin) 3 Mg Tablet, 3 MG PO QHS, (Reported) Multivitamin with Minerals (Hair, Skin and Nails) 1 Each Tablet, 1 TAB PO DAILY, (Reported) [place]-3 Fatty Acids/Fish Oil (Fish Oil 1,000 mg Capsule) 1 Each Capsule, 1,000 MG PO QHS, (Reported) Pantoprazole Sodium (Protonix) 40 Mg Granpkt.dr, 40 MG PO DAILY Pravastatin Sodium (Pravastatin Sodium) 40 Mg Tablet, 40 MG PO QHS, (Reported) Allergies Coded Allergies: No Known Allergies (Unverified , 05/09/19) QUINTON ARGUELLO MD May 12, 2019 15:34
[2019-05-12] MEDS ORDERED: SENNA 8.6 MG TAB (SENOKOT) PO SCH (21:00)
== END 2019-05-12 14:35 | disposition home health service (06) | DRG 378 ==
LOC: M ED 07:46 → EDBD 07:46 → M ED INP 11:14 → M PCU 13:46
PROVIDERS: ADMIT General Practice; ATTEND Internal Medicine
PROC: 0DBH8ZX Excision of Cecum, Via Natural or Artificial Opening Endoscopic, Diagnostic (ICD-10-PCS; 2019-05-11)
PROC: 0DB68ZX Excision of Stomach, Via Natural or Artificial Opening Endoscopic, Diagnostic (ICD-10-PCS; principal; 2019-05-11 13:10)
DX: K57.91 Diverticulosis of intestine, part unspecified, without perforation or abscess with bleeding (principal); D62 Acute posthemorrhagic anemia; E11.9 Type 2 diabetes mellitus without complications; Z79.82 Long term (current) use of aspirin; Z79.899 Other long term (current) drug therapy; E78.00 Pure hypercholesterolemia, unspecified; E66.9 Obesity, unspecified; Z68.33 Body mass index [BMI] 33.0-33.9, adult; M19.90 Unspecified osteoarthritis, unspecified site; E04.9 Nontoxic goiter, unspecified; I11.9 Hypertensive heart disease without heart failure; G47.00 Insomnia, unspecified; K42.9 Umbilical hernia without obstruction or gangrene; E78.5 Hyperlipidemia, unspecified; D12.0 Benign neoplasm of cecum

== ENCOUNTER 2019-05-15 16:05 | Inpatient (IN) | payer MEDICARE, OTHER ==
[~2019-05-15] VITALS: Ht 165.1 cm; Wt 94.9 kg
[~2019-05-15 16:05] MED LIST changes: +ADVI200T PO; +ECOT81TA5 PO; +FISH1000 PO; +FURO20TA2 PO; +LISI10TA4 PO; +MELA3TAB41 PO; +PROTPAK PO; +SM HTAB3 PO
[2019-05-15 17:25] LABS: BLOOD UREA NITROGEN 21 MG/DL (7-18); CALCIUM LEVEL 8.4 MG/DL (8.8-10.2); CARBON DIOXIDE LEVEL 32 MEQ/L (21-32); CHLORIDE LEVEL 105 MEQ/L (98-107); CREATININE FOR GFR 0.76 MG/DL (0.55-1.30); GLOMERULAR FILTRATION RATE > 60.0 (>39); GLUCOSE, FASTING 108 MG/DL (70-100); POTASSIUM SERUM 3.9 MEQ/L (3.5-5.1); SODIUM LEVEL 142 MEQ/L (136-145)
[2019-05-15 17:30] LABS: HEMATOCRIT 32.7 % (36.0-47.0); HEMOGLOBIN 10.3 g/dl (12.0-15.5); MEAN CORPUSCULAR HEMOGLOBIN 30.7 pg (27.0-33.0); MEAN CORPUSCULAR HGB CONC 31.5 g/dl (32.0-36.5); MEAN CORPUSCULAR VOLUME 97.3 fl (80.0-96.0); PLATELET COUNT, AUTOMATED 278 10^3/uL (150-450); RED BLOOD COUNT 3.36 10^6/uL (4.00-5.40); WHITE BLOOD COUNT 6.6 10^3/uL (4.0-10.0)
[2019-05-15] MEDS ORDERED: PANT40TA3 PO (19:30)
[2019-05-15] MEDS ORDERED: CETI10TA PO (19:30)
[2019-05-15] MEDS ORDERED: ACETAMINOPHEN TAB 650MG DOSE (2X325MG) PO PRN (20:15)
--- NOTE | 2019-05-15 20:26 | HPEPDOC ---
General Date of Admission 05/15/19 Date of Service: May 15, 2019 Primary Care Physician: Delfina De La Cruz Chief Complaint The patient is a 78-year-old female admitted with a reason for visit of Gi Blee d. Source: Patient Exam Limitations: No limitations Timing/Duration: This afternoon Severity: Mild, Moderate Associated Symptoms: Other (none) History of Present Illness 78 years old white female with past medical history of dyspepsia, osteoarthritis, degenerative joint disease cervical spine problems, spinal stenosis, multinodular goiter hypertensive heart disease, grade 1 diastolic dysfunction, obesity, was recently discharged from this hospital after she had a EGD and colonoscopy done and also had a polypectomy of 3 polyps in cecum and transverse colon done and was found to have severe diverticulosis and ascending colon. Patient presented with painless passing of bright red blood per rectum since today. She had 1 large episode in the ED, but denies any abdominal pain, nausea, vomiting, chest pain, shortness of breath, etc. Home Medications Scheduled Aspirin (Ecotrin) 81 Mg Tablet.dr, 81 MG PO QHS, (Reported) Cetirizine HCl (Cetirizine HCl) 10 Mg Tablet, 10 MG PO DAILY, (Reported) Furosemide (Furosemide) 20 Mg Tablet, 20 MG PO BID, (Reported) Lisinopril (Lisinopril) 10 Mg Tablet, 10 MG PO QHS, (Reported) Melatonin (Melatonin) 3 Mg Tablet, 3 MG PO QHS, (Reported) Multivitamin with Minerals (Hair, Skin and Nails) 1 Each Tablet, 1 TAB PO DAILY, (Reported) [place]-3 Fatty Acids/Fish Oil (Fish Oil 1,000 mg Capsule) 1 Each Capsule, 1,000 MG PO QHS, (Reported) Pantoprazole Sodium (Pantoprazole Sodium) 40 Mg Tablet.dr, 40 MG PO DAILY, (Reported) Pravastatin Sodium (Pravastatin Sodium) 40 Mg Tablet, 40 MG PO QHS, (Reported) Allergies Coded Allergies: No Known Allergies (Unverified , 05/09/19) Past Medical History Medical History Dyspepsia, osteoarthritis, degenerative joint disease, spinal stenosis, hypertensive heart disease, diastolic dysfunction, Surgical History Cholecystectomy, EGD and colonoscopy Family History Significant Family History: No pertinent family hx Social History * Smoker: Denies Alcohol: Denies Drugs: denies A-FIB/CHADSVASC A-FIB History Current/History of A-Fib/PAF?: No Review of Systems Constitutional: Denies: Chills, Fever, Malaise, Night Sweats, Weakness, Fatigue, Weight Loss, Lethargy, Other Eyes: Denies: Pain, Vision change, Conjunctivae inflammation, Eyelid inflammation, Redness, Other ENT: Denies: Head Aches, Ear Pain, Dysphagia, Sinus Congestion, Post Nasal Dr ip, Sore Throat, Epistaxis, Other Symptoms Skin: Denies: Rash, Lesions, Jaundice, Bruising, Itching, Dry, Breakdown, Nail Changes, Other Pulmonary: Denies: Dyspnea, Cough, Pleuritic Chest Pain, Other Symptoms Cardiovascular: Denies: Chest Pain, Palpitations, Orthopnea, Paroxysmal Noc. Dyspnea, Edema, Lt Headedness, Other Symptoms Gastrointestinal: Reports: Other Symptoms (, bright red blood per rectum) Genitourinary: Denies: Dysuria, Frequency, Incontinence, Hematuria, Retention, Other Symptoms Hematologic: Denies: Bruising, Bleeding Excessively, Petecchia, Purpura, Enlarged Lymph Nodes, Other Hematologic Endocrine: Denies: Polydipsia, Polyphagia, Polyuria, Heat Intolerance, Cold Intolerance, Other Endocrine Sx Musculoskeletal: Denies: Neck Pain, Back Pain, Shoulder Pain, Arm Pain, Hand Pain, Leg Pain, Foot Pain, Joint Pain, Muscle Pain, Spasms, Other Symptoms Neurological: Denies: Weakness, Numbness, Incoordination, Change in speech, Confusion, Seizures, Other Symptoms Psych: Denies: Mood Normal, Anxiety, Depression, Memory Issues, Thoughts of Self Harm, Anger, Thoughts of Harming Other, Other Psych Physical Examination General Exam: Positive: Alert, Cooperative Eye Exam: Positive: PERRLA, Conjunctiva & lids normal ENT Exam: Positive: Atraumatic, Mucous membr. moist/pink Neck Exam: Positive: Supple Chest Exam: Positive: Clear to auscultation, Normal air movement Heart Exam: Positive: Rate Normal, Normal S1, Normal S2 Abdomen Exam: Positive: Normal bowel sounds, Soft Extremity Exam: Positive: Normal pulses Skin Exam: Positive: Nl turgor and temperature Neuro Exam: Positive: Strength at 5/5 X4 ext, Sensation Intact Psych Exam: Positive: Mental status NL, Oriented x 3 Vital Signs Vital Signs Date Time Temp Pulse Resp B/P (MAP) Pulse Ox O2 Delivery O2 Flow Rate FiO2 05/15/19 19:54 87 20 136/64 (88) 97 Room Air 05/15/19 16:13 97.7 Laboratory Data Labs 24H Laboratory Tests 2 05/15/19 16:35: Nucleated Red Blood Cells % (auto) 0.0, Anion Gap 5L, Glomerular Filtration Rate > 60.0, Blood Urea Nitrogen 21H, Creatinine 0.76, Sodium Level 142, Potassium Level 3.9, Chloride Level 105, Carbon Dioxide Level 32, Calcium Level 8.4L CBC/BMP Laboratory Tests 05/15/19 16:35 Red Blood Count 3.36 L, Mean Corpuscular Volume 97.3 H, Mean Corpuscular Hemoglobin 30.7, Mean Corpuscular Hemoglobin Concent 31.5 L, Red Cell Distribution Width 14.3, Calcium Level 8.4 L Problems (1) Diverticulosis of colon with hemorrhage Status: Acute Problem Text: 78 years old white female with past medical history of diverticulosis, status post polypectomy, status post GI bleed recently discharged after had EGD and colonoscopy done also had a polypectomy for 3 polyps and no active source of bleeding was noted on last admission. Patient came back again with complaining of bright red blood per rectum since today and also had 1 episode of bright red blood per rectum in ED, otherwise patient is asymptomatic. Most likely is a diverticular bleed as it's painless with no other associated symptoms Admitted to PCU for close observation classroom monitor Follow H&H Transfuse as needed Continue Protonix GI consult called discuss with Dr. Petty, monitor H&H. Conservative medical management until seen by Dr chávez in am. Bilateral SCDs for DVT prophylaxis Continue home meds (2) Diverticulosis Status: Chronic Problem Text: History of extensive diverticulosis . No bleeding was noted on last colonoscopy Monitor H&H Other as per GIs recommendations (3) HTN (hypertension) Status: Chronic Problem Text: Under control Continue home meds Plan / VTE VTE Prophylaxis Ordered?: Yes DELMY MORGAN MD May 15, 2019 20:26
[2019-05-15] MEDS ORDERED: ASPIRIN 81 MG ENTERIC TAB PO SCH (21:00)
[2019-05-15 22:30] VITALS: BP 143/65
[2019-05-15 23:06] LABS: HEMATOCRIT 29.7 % (36.0-47.0); HEMOGLOBIN 9.4 g/dl (12.0-15.5); MEAN CORPUSCULAR HEMOGLOBIN 29.8 pg (27.0-33.0); MEAN CORPUSCULAR HGB CONC 31.6 g/dl (32.0-36.5); MEAN CORPUSCULAR VOLUME 94.3 fl (80.0-96.0); PLATELET COUNT, AUTOMATED 282 10^3/uL (150-450); RED BLOOD COUNT 3.15 10^6/uL (4.00-5.40); WHITE BLOOD COUNT 9.2 10^3/uL (4.0-10.0)
[2019-05-15] MEDS: LISINOPRIL 10 MG TAB PO SCH (23:46)
[2019-05-15] MEDS: diphenhydrAMINE 25 MG CAP PO PRN (23:46)
[2019-05-15] MEDS: PRAVASTATIN 20 MG TAB PO SCH (23:46)
[2019-05-16] VITALS: BP 133/69
[2019-05-16 04:00] VITALS: BP 102/50
[2019-05-16 04:52] LABS: HEMATOCRIT 27.5 % (36.0-47.0); HEMOGLOBIN 8.7 g/dl (12.0-15.5); MEAN CORPUSCULAR HEMOGLOBIN 30.3 pg (27.0-33.0); MEAN CORPUSCULAR HGB CONC 31.6 g/dl (32.0-36.5); MEAN CORPUSCULAR VOLUME 95.8 fl (80.0-96.0); PLATELET COUNT, AUTOMATED 264 10^3/uL (150-450); RED BLOOD COUNT 2.87 10^6/uL (4.00-5.40)
[2019-05-16 05:19] LABS: ALBUMIN 2.5 GM/DL (3.2-5.2); ALT/SGPT 27 U/L (12-78); BILIRUBIN,TOTAL 0.3 MG/DL (0.2-1.0); BLOOD UREA NITROGEN 23 MG/DL (7-18); CARBON DIOXIDE LEVEL 34 MEQ/L (21-32); CHLORIDE LEVEL 105 MEQ/L (98-107); CREATININE FOR GFR 0.77 MG/DL (0.55-1.30); GLOMERULAR FILTRATION RATE > 60.0 (>39); GLUCOSE, FASTING 97 MG/DL (70-100); POTASSIUM SERUM 3.9 MEQ/L (3.5-5.1); SODIUM LEVEL 141 MEQ/L (136-145); TOTAL PROTEIN 4.9 GM/DL (6.4-8.2)
[2019-05-16 08:00] VITALS: BP 110/65
[2019-05-16] MEDS: FUROSEMIDE 20 MG TAB PO SCH ×2 (09:24→16:05)
[2019-05-16] MEDS: PANTOPRAZOLE 40MG TAB (PROTONIX) PO SCH (09:24)
[2019-05-16] MEDS: CETIRIZINE (ZyrTEC) 10 MG TAB PO SCH (09:24)
--- NOTE | 2019-05-16 11:21 | IPNPDOC ---
Text Note Date of Service The patient was seen on 05/16/19. NOTE Maru Guaman is a 78 year old female with significant past medical history including dyspepsia, osteoarthritis, degenerative joint disease, spinal stenosis, grade 1 diastolic dysfunction, obesity and hypertensive heart disease presented to the emergency department yesterday with bright red blood per rectum. Patient was recently discharged from the hospital after having an EGD and colonoscopy done. She also had a polypectomy of 3 polyps in the cecum and transverse colon done, that was found to have severe diverticulosis and ascending colon. Patient states she has 2 episodes of bright red blood per rectum, which lead to her coming to the ED. She had one additional episode while in the emergency department. She was seen at beside this morning. She denies any additional bowel movements overnight and states that she is doing relatively well. She denies any symptoms of abdominal pain, shortness of breath, chest pain, nausea, vomiting, diarrhea, lightheadedness, headaches, dizziness and fevers. Patient only complain is hunger, as she hasn't ate since yesterday, pending GI consult. Review of systems Constitutional- Denies fever, chills and night sweats HEENT- denies headache, hearing loss, ringing sensation, Cardiovascular- denies chest pain and palpation Respiratory- denies shortness of breath or wheezing Gastrointestinal- denies nausea, vomiting, diarrhea, constipation or abdominal pain Musculoskeletal- denies weakness on upper and lower extremities Neurological- denies motor and sensory deficits Endocrine- denies polyuria, polydipsia, polyphagia Genitourinary- denies hematuria or dysuria Psychology- denies depression and anxiety Physicial Exams Vitals: Temp 97.9, Pulse 83, Respiratory Rate 18, Blood Pressure 110/65 General- alert, oriented to person, place and time HEENT- Normacephalic, atraumatic, External ear canals patent, TM with nonprotruding , tonsils 2 + without exudates, oral mucosa clear Neck- supple without lymphadenopathy Respiratory: thorax symmetric with good expansion, lungs clear with no rales or rhonchi, no crackles Cardiovascular- normal s1 and s2, without s3 and s3, no murmur, rubs or clicks Abdominal- no present bowel sounds, no tenderness on palpation, soft, no masses noted Extremities- full range of motion (5/5), radial, femoral and pedal pulses are pa latable, Skin- no ulcers, rashes evident Assessment: 78 years old white female with past medical history of diverticulosis, status post polypectomy, status post GI bleed discharged last week after she had EGD and colonoscopy done. She also had a polypectomy for 3 polyps and no active source of bleeding was noted on last admission. Patient came back yesterday complaining of bright red blood per rectum and also had 1 episode of bright red blood per rectum in ED, otherwise patient is asymptomatic. Most likely is a diverticular bleed as it's painless with no other associated symptoms Plan: Bright red bleeding per rectum - likely 2/2 diverticular bleeding Admitted to PCU for close observation, vitals have remained hemodynamically stable. 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 Follow H&H every 6 hours. Levels have been trending down since admission so need to monitor Transfuse as needed. Continue Protonix - We'll continue to trend hemoglobin GI has been consulted for possible intervention; however, patient has received a recent EGD and colonoscopy that has revealed severe diverticulosis #Diverticulosis Status: Chronic Patient has extensive diverticulosis but there was no bleeding see on last colonoscopy Pelvic CT from 05/09/19 indicates pancolonic diverticulosis involving the left colon. Montor H&H and other as per GI recommendations #Hypertensive heart disease Continue home medication #Dyspepsia, Continue home medication DVT Prophylaxis: SCDs for DVT prophylaxis VS,Fishbone, I+O VS, Fishbone, I+O Laboratory Tests 05/15/19 16:35 Red Blood Count 3.36 L, Mean Corpuscular Volume 97.3 H, Mean Corpuscular Hemoglobin 30.7, Mean Corpuscular Hemoglobin Concent 31.5 L, Red Cell Distribution Width 14.3, Calcium Level 8.4 L 05/15/19 22:59 Red Blood Count 3.15 L, Mean Corpuscular Volume 94.3, Mean Corpuscular Hemoglobin 29.8, Mean Corpuscular Hemoglobin Concent 31.6 L, Red Cell Distribution Width 14.3 05/16/19 04:08 Red Blood Count 2.87 L, Mean Corpuscular Volume 95.8, Mean Corpuscular Hemoglobi n 30.3, Mean Corpuscular Hemoglobin Concent 31.6 L, Red Cell Distribution Width 14.2, Calcium Level 8.0 L, Aspartate Amino Transf (AST/SGOT) 21, Alanine Aminotransferase (ALT/SGPT) 27, Alkaline Phosphatase 53, Total Bilirubin 0.3, Total Protein 4.9 L, Albumin 2.5 L Vital Signs Date Time Temp Pulse Resp B/P (MAP) Pulse Ox O2 Delivery O2 Flow Rate FiO2 05/16/19 08:00 97.9 83 18 110/65 (80) 90 05/15/19 19:54 Room Air I&O- Last 24 Hours up to 6 AM 05/16/19 06:00 Intake Total 0 ml Output Total 200 ml Balance -200 ml GME ATTESTATION GME ATTESTATION My faculty preceptor for this patient encounter was physically present during the encounter and was fully available. All aspects of the patient interview, examination, medical decision making process, and medical care plan development were reviewed and approved by the faculty preceptor. The faculty preceptor is aware and concurs with the plan as stated in the body of this note and will attest to such by his/her cosignature. ATTENDING NOTE I, Harjit Mendez, have independently examined this patient and performed my own physical exam, as well as reviewed the documentation and edited where necessary. I have discussed in detail with the resident / student the findings and plan of treatment as documented by the resident / student and edited their note. I agree with their findings and treatment plan and have edited their documentation. I will continue to follow the patient during this hospital stay. AURELIA ARMSTRONG May 16, 2019 11:18 GONSALO FERNÁNDEZ DO May 16, 2019 12:12 HARJIT MENDEZ MD May 16, 2019 15:15
[2019-05-16 12:00] VITALS: BP 119/79
[2019-05-16 12:21] LABS: HEMATOCRIT 31.1 % (36.0-47.0); HEMOGLOBIN 9.8 g/dl (12.0-15.5)
[2019-05-16 16:00] VITALS: BP 123/59
[2019-05-16 18:27] LABS: HEMATOCRIT 31.4 % (36.0-47.0); HEMOGLOBIN 9.8 g/dl (12.0-15.5)
[2019-05-16 20:00] VITALS: BP 131/87
[2019-05-16] MEDS: PRAVASTATIN 20 MG TAB PO SCH (20:35)
[2019-05-16] MEDS: diphenhydrAMINE 25 MG CAP PO PRN (20:36)
[2019-05-16] MEDS: LISINOPRIL 10 MG TAB PO SCH (20:36)
[2019-05-16 23:51] LABS: HEMATOCRIT 26.6 % (36.0-47.0); HEMOGLOBIN 8.4 g/dl (12.0-15.5)
[2019-05-17] VITALS (14 sets, daily range): BP systolic 88–134; BP diastolic 46–60
[2019-05-17 05:36] LABS: HEMOGLOBIN 8.5 g/dl (12.0-15.5); MEAN CORPUSCULAR HEMOGLOBIN 30.4 pg (27.0-33.0); MEAN CORPUSCULAR HGB CONC 31.5 g/dl (32.0-36.5); MEAN CORPUSCULAR VOLUME 96.4 fl (80.0-96.0); PLATELET COUNT, AUTOMATED 258 10^3/uL (150-450); WHITE BLOOD COUNT 7.1 10^3/uL (4.0-10.0)
[2019-05-17 05:59] LABS: ALBUMIN 2.4 GM/DL (3.2-5.2); ALT/SGPT 25 U/L (12-78); BILIRUBIN,TOTAL 0.3 MG/DL (0.2-1.0); BLOOD UREA NITROGEN 18 MG/DL (7-18); CALCIUM LEVEL 7.8 MG/DL (8.8-10.2); CARBON DIOXIDE LEVEL 31 MEQ/L (21-32); CHLORIDE LEVEL 110 MEQ/L (98-107); CREATININE FOR GFR 0.75 MG/DL (0.55-1.30); GLOMERULAR FILTRATION RATE > 60.0 (>39); GLUCOSE, FASTING 92 MG/DL (70-100); POTASSIUM SERUM 3.7 MEQ/L (3.5-5.1); SODIUM LEVEL 145 MEQ/L (136-145); TOTAL PROTEIN 5.4 GM/DL (6.4-8.2)
[2019-05-17 09:25] LABS: HEMATOCRIT 27.5 % (36.0-47.0); HEMOGLOBIN 8.8 g/dl (12.0-15.5)
[2019-05-17] MEDS: FUROSEMIDE 20 MG TAB PO SCH ×2 (09:58→17:41)
[2019-05-17] MEDS: PANTOPRAZOLE 40MG TAB (PROTONIX) PO SCH (09:58)
[2019-05-17] MEDS: CETIRIZINE (ZyrTEC) 10 MG TAB PO SCH (09:58)
--- NOTE | 2019-05-17 10:20 | IPNPDOC ---
Date Seen The patient was seen on 05/17/19. Progress Note Subjective: Patient was interviewed and examined the hospital room this morning. Patient was found resting comfortably in her bed and in no acute distress. Per nursing, patient did have a slight dip in her hips and saturations. Though, she remained a symptomatically. She was placed on 2 L of oxygen with subsequent improvement. Awake this morning, patient is doing well without any hypoxia or dyspnea. She states that she has had a number of bowel movements since she was seen yest erday. None of these bowel movements of had any black or tarry stools or bright red blood. Her diet was advanced without issue. She denies any shortness of breath/difficulty breathing. No chest pain, no abdominal pain or discomfort. Physicial Exams Vitals: Please see below. General- alert, oriented to person, place and time HEENT- Normacephalic, atraumatic, EOMI, mucus membranes moist, no conjunctival pallor. Neck- supple without lymphadenopathy Respiratory: thorax symmetric with good expansion, lungs clear with no rales or rhonchi, no crackles Cardiovascular- normal s1 and s2, without s3 and s3, no murmur, rubs or clicks Abdominal- no present bowel sounds, no tenderness on palpation, soft, no masses noted Extremities- full range of motion (5/5), radial, femoral and pedal pulses are palatable, Skin- no ulcers, rashes evident Assessment: 78 years old white female with past medical history of diverticulosis, status post polypectomy, status post GI bleed discharged last week after she had EGD and colonoscopy done. She also had a polypectomy for 3 polyps and no active source of bleeding was noted on last admission. Patient came back yesterday complaining of bright red blood per rectum and also had 1 episode of bright red blood per rectum in ED, otherwise patient is asymptomatic. Diverticular etiology most likely given patient's recent colonoscopy results. Hemoglobin returned to 9.8 on 05/16 with a subsequent drop and plateau around 8.5. Patient denies any persistant bloody bowel movements. Her diet was advanced, continue to monitor H/H every 6 hours. Plan: #Bright red bleeding per rectum Likely 2/2 diverticular bleeding. Admitted to PCU for close observation, vitals have remained hemodynamically stable since admission. Diet was advanced as tolerated without any difficulty. No hematochezia or melena overnight or this morning. 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 Follow H&H every 6 hours. Returned to 9.8 yesterday 1200 with sequent drop and plateau around 8.5. 2 units of packed cells will be given today subsequent monitoring of H&H. Rationale being that patient is having a diverticular bleed, not a candidate for surgical intervention. As such, she is likely to continue to bleed intermittently. Optimization of H&H to be performed will patient's in the hospital with subsequent weekly CBC monitoring by primary care provider upon discharge. Continue to monitor H&H going forward. #Diverticulosis Status: Chronic Patient has extensive diverticulosis but there was no bleeding see on last colonoscopy Pelvic CT from 05/09/19 indicates pancolonic diverticulosis involving the left colon. Monitor H&H #Hypertensive heart disease Normotensive this morning Continue home medication #Dyspepsia, Continue home medication DVT Prophylaxis: SCDs for DVT prophylaxis VS, I&O, 24H, Fishbone Vital Signs/I&O Vital Signs Date Time Temp Pulse Resp B/P (MAP) Pulse Ox O2 Delivery O2 Flow Rate FiO2 05/17/19 08:00 96.7 82 20 118/60 (79) 88 05/15/19 19:54 Room Air I&O- Last 24 Hours up to 6 AM 05/17/19 05:59 Intake Total 600 ml Output Total 400 ml Balance 200 ml Laboratory Data 24H LABS Laboratory Tests 2 05/17/19 05:22: Nucleated Red Blood Cells % (auto) 0.0, Anion Gap 4L, Glomerular Filtration Rate > 60.0, Calcium Level 7.8L, Total Bilirubin 0.3, Aspartate Amino Transf (AST/SGOT) 21, Alanine Aminotransferase (ALT/SGPT) 25, Alkaline Phosphatase 59, Total Protein 5.4L, Albumin 2.4L, Albumin/Globulin Ratio 0.80L CBC/BMP Laboratory Tests 05/16/19 12:01 05/16/19 18:06 05/16/19 23:43 05/17/19 05:22 05/17/19 09:07 GME ATTESTATION GME ATTESTATION I saw and evaluated the patient. I agree with the findings and plan of care as documented in the above note GONSALO FERNÁNDEZ DO May 17, 2019 10:20 KESHIA CHANCE MD May 18, 2019 13:32
[2019-05-17 21:08] LABS: HEMATOCRIT 35.1 % (36.0-47.0)
[2019-05-17 21:12] LABS: HEMOGLOBIN 11.2 g/dl (12.0-15.5)
[2019-05-17] MEDS: PRAVASTATIN 20 MG TAB PO SCH (21:43)
[2019-05-17] MEDS: LISINOPRIL 10 MG TAB PO SCH (21:43)
[2019-05-17] MEDS: diphenhydrAMINE 25 MG CAP PO PRN (21:43)
[2019-05-18] VITALS: BP 107/53
[2019-05-18 02:39] LABS: HEMOGLOBIN 10.1 g/dl (12.0-15.5)
[2019-05-18 04:00] VITALS: BP 104/51
[2019-05-18 07:16] LABS: ALBUMIN 2.3 GM/DL (3.2-5.2); ALT/SGPT 23 U/L (12-78); BILIRUBIN,TOTAL 0.4 MG/DL (0.2-1.0); BLOOD UREA NITROGEN 17 MG/DL (7-18); CALCIUM LEVEL 7.9 MG/DL (8.8-10.2); CARBON DIOXIDE LEVEL 27 MEQ/L (21-32); CHLORIDE LEVEL 110 MEQ/L (98-107); CREATININE FOR GFR 0.81 MG/DL (0.55-1.30); GLOMERULAR FILTRATION RATE > 60.0 (>39); GLUCOSE, FASTING 98 MG/DL (70-100); SODIUM LEVEL 141 MEQ/L (136-145); TOTAL PROTEIN 5.7 GM/DL (6.4-8.2)
[2019-05-18 07:40] LABS: HEMATOCRIT 33.9 % (36.0-47.0); HEMOGLOBIN 11.1 g/dl (12.0-15.5); MEAN CORPUSCULAR HEMOGLOBIN 30.3 pg (27.0-33.0); MEAN CORPUSCULAR HGB CONC 32.7 g/dl (32.0-36.5); MEAN CORPUSCULAR VOLUME 92.6 fl (80.0-96.0); PLATELET COUNT, AUTOMATED 265 10^3/uL (150-450); RED BLOOD COUNT 3.66 10^6/uL (4.00-5.40); WHITE BLOOD COUNT 7.4 10^3/uL (4.0-10.0)
[2019-05-18 07:55] VITALS: BP 126/60
[2019-05-18] MEDS: CETIRIZINE (ZyrTEC) 10 MG TAB PO SCH (09:24)
[2019-05-18] MEDS: FUROSEMIDE 20 MG TAB PO SCH (09:24)
[2019-05-18] MEDS: PANTOPRAZOLE 40MG TAB (PROTONIX) PO SCH (09:25)
[2019-05-18] MEDS ORDERED: IRON65TA2 PO (10:40)
[2019-05-18] MEDS ORDERED: FLUBLOK(EGG FREE)(QUAD)INFLUENZA VACC 0.5ML SYRINGE (90682)18YRS&OLDER IM ONE (13:00)
--- NOTE | 2019-05-18 17:00 | DS.PDOC ---
Discharge Summary General Date of Admission May 15, 2019 at 20:09 Date of Discharge 05/18/19 Attending Physician: KESHIA CHANCE MD Discharge Summary PROCEDURES PERFORMED DURING STAY: None ADMITTING DIAGNOSES: Diverticulosis of colon with hemorrhage Diverticulosis Hypertension DISCHARGE DIAGNOSES: Diverticular bleed Diverticulosis Hypertensive heart disease Dyspepsia COMPLICATIONS/CHIEF COMPLAINT: Diverticulosis Of Colon With Hemorrhage. HISTORY OF PRESENT ILLNESS: Patient is a 78-year-old female with past medical history significant for dyspepsia, osteoarthritis, degenerative joint disease, spinal stenosis, multinodular goiter, hypertensive heart disease, grade 1 diastolic discharge, obesity, was recently discharged from the hospital after an EGD and colonoscopy was performed and 3 polyps removed from the patient's cecum and transverse colon. During patient's procedure she was noted to have severe diverticulosis of the descending colon. presented to the emergency department on the day of admission complaining of passing bright red blood per rectum. She states that she had 2 episodes while at home and one large episode in the emergency depar tment. She denied any abdominal pain, nausea, vomiting, chest pain or shortness of breath. HOSPITAL COURSE: Patient was admitted to the hospital for further management and evaluation. Upon admission patient's H/H was found to be 10.3/32.7. Patient continued to have bright red blood during bowel movements throughout the evening though less severe than her episodes while at home. H&H the morning of 05/16/19 was found to be 8.7/27.5. H&H were followed closely. The morning of 05/17/19 patient was found to have a hemoglobin of 8.8 and a hematocrit of 27.5. Given, that the patient's is obviously experiencing a diverticular bleed, patient was transfused 2 units of packed red cells. Posttransfusion H&H was found to be 11.2/35.1. Overnight, patient's blood counts remained stable. Throughout her hospitalization patient was asymptomatic without any shortness of breath or chest pain. Discharge plan was shared with the patient on the morning of 05/18/19. Patient will likely require serial outpatient CBCs to monitor for anemia. All questions regarding her current condition and future management were answered. DISCHARGE MEDICATIONS: Please see below. ALLERGIES: Please see below. PHYSICAL EXAMINATION ON DISCHARGE: VITAL SIGNS: Please see below. GEN.: alert, oriented to person, place and time HEENT: Normacephalic, atraumatic, EOMI, mucus membranes moist, no conjunctival pallor. NECK: supple without lymphadenopathy RESPIRATORY: thorax symmetric with good expansion, lungs clear with no rales or rhonchi, no crackles CARDIOVASCULAR: normal s1 and s2, without s3 and s3, no murmur, rubs or clicks ABDOMINAL: no present bowel sounds, no tenderness on palpation, soft, no masses noted EXTREMITIES: full range of motion (5/5), radial, femoral and pedal pulses are palatable SKIN: no ulcers, rashes evident PSYCH: Mood and affect appropriate given patient's current medical condition LABORATORY DATA: Please see below. IMAGING: No imaging studies were performed during patient's hospitalization. PROGNOSIS: Fair ACTIVITY: As tolerated DIET: As tolerated DISPOSITION: Home, Self-Care. DISCHARGE INSTRUCTIONS: Please follow-up in 5-7 days with your PCP. You may require serial blood-work to ensure your blood counts remain at the appropriate levels. Please stop taking your Lisinopril as your BP has been on the lower-end of normal. Please take other medications as prescribed. Please return to the ED should you experience a return of your symptoms, including a large amount of bright-red blood in your stool. Please continue on a regular diet without fluid restriction. Thank you for allowing us to participate in your care. DISCHARGE CONDITION: Stable TIME SPENT ON DISCHARGE: Greater than 35 minutes. Vital Signs/I&Os Vital Signs Date Time Temp Pulse Resp B/P (MAP) Pulse Ox O2 Delivery O2 Flow Rate FiO2 05/18/19 09:44 90 Room Air 05/18/19 07:55 97.1 83 18 126/60 (82) 05/17/19 17:35 2.0 I&O- Last 24 Hours up to 6 AM 05/18/19 06:00 Intake Total 1620 ml Output Total 400 ml Balance 1220 ml Laboratory Data Labs 24H Laboratory Tests 2 05/18/19 06:47: Anion Gap 4L, Glomerular Filtration Rate > 60.0, Calcium Level 7.9L, Total Bilirubin 0.4, Aspartate Amino Transf (AST/SGOT) 26, Alanine Aminotransferase (ALT/SGPT) 23, Alkaline Phosphatase 59, Total Protein 5.7L, Albumin 2.3L, Albumin/Globulin Ratio 0.68L 05/18/19 07:01: Nucleated Red Blood Cells % (auto) 0.0 CBC/BMP Laboratory Tests 05/17/19 21:00 05/18/19 02:28 05/18/19 06:47 05/18/19 07:01 Discharge Medications Scheduled Aspirin (Ecotrin) 81 Mg Tablet.dr, 81 MG PO QHS, (Reported) Cetirizine HCl (Cetirizine HCl) 10 Mg Tablet, 10 MG PO DAILY, (Reported) Ferrous Sulfate (Iron) 325 Mg Tablet, 1 TAB PO BID Furosemide (Furosemide) 20 Mg Tablet, 20 MG PO BID, (Reported) Melatonin (Melatonin) 3 Mg Tablet, 3 MG PO QHS, (Reported) Multivitamin with Minerals (Hair, Skin and Nails) 1 Each Tablet, 1 TAB PO DAILY, (Reported) [place]-3 Fatty Acids/Fish Oil (Fish Oil 1,000 mg Capsule) 1 Each Capsule, 1,000 MG PO QHS, (Reported) Pantoprazole Sodium (Pantoprazole Sodium) 40 Mg Tablet.dr, 40 MG PO DAILY, (Reported) Pravastatin Sodium (Pravastatin Sodium) 40 Mg Tablet, 40 MG PO QHS, (Reported) Allergies Coded Allergies: No Known Allergies (Unverified , 05/09/19) GME ATTESTATION GME ATTESTATION I saw and evaluated the patient. I agree with the findings and plan of care as documented in the documenters note. I spent 45 minutes coordinating this patient's discharge. GONSALO FERNÁNDEZ DO May 18, 2019 17:00 KESHIA CHANCE MD May 19, 2019 13:10
== END 2019-05-18 15:34 | disposition home or self-care (01) | DRG 379 ==
LOC: M ED 16:05 → EDBD 16:05 → M ED INP 20:09 → M PCU 21:55
PROVIDERS: ADMIT Internal Medicine; ATTEND Internal Medicine
PROC: 30233N1 Transfusion of Nonautologous Red Blood Cells into Peripheral Vein, Percutaneous Approach (ICD-10-PCS; principal; 2019-05-17)
DX: K57.33 Diverticulitis of large intestine without perforation or abscess with bleeding (principal); I11.9 Hypertensive heart disease without heart failure; M19.90 Unspecified osteoarthritis, unspecified site; E04.9 Nontoxic goiter, unspecified; E66.9 Obesity, unspecified; Z79.82 Long term (current) use of aspirin; Z79.899 Other long term (current) drug therapy

== ENCOUNTER → 2021-03-06 | Outpatient (CLI) | payer MEDICARE, OTHER ==
[~2021-03-06] MED LIST changes: -ALL10TAB29; +CETI-24; +CETI10TA PO; +IRON65TA2 PO; +LISI10TA22 PO; -LISI10TA4 PO; +MELA3TAB30 PO; -MELA3TAB41 PO; +PANT40TA29 PO
--- NOTE | 2021-03-06 16:28 | REP ---
INDICATION: OTHER NONSPECIFIC ABNORMAL FINDING OF LUNG FIELD. COMPARISON: None. TECHNIQUE: Upright PA and lateral images of the chest were obtained. FINDINGS: There is mild blunting of both costophrenic angles. There is airspace disease in the middle and lower lobes of the right lung consistent with atelectasis or pneumonia. The lungs are otherwise clear. The heart borders and mediastinum are. The upper abdominal bowel gas pattern is normal. There is dextroscoliosis of the thoracic spine. IMPRESSION: 1. Atelectasis or pneumonia in the middle and lower lobes of the right lung. 2. Blunting of both costophrenic angles of indeterminate age. 3. Other findings as noted. <Electronically signed by Javan Doran > 03/06/21 [id number]
== END ==
LOC: M WUC 15:54
PROVIDERS: ATTEND Internal Medicine Pulmonary Disease
DX: R91.8 Other nonspecific abnormal finding of lung field (principal)

== ENCOUNTER → 2021-03-21 | Outpatient (CLI) | payer OTHER ==
--- NOTE | 2021-03-21 15:21 | REP ---
INDICATION: OTHER NONSPECIFIC ABNORMAL FINDING OF LUNG FIELD COMPARISON: 03/06/2021 TECHNIQUE: PA and lateral. FINDINGS: Mediastinum and cardiac silhouette are stable. Improved aeration is suggested although mild residual right lower lobe atelectasis/pneumonia is again noted and should be correlated with physical examination and auscultation. No new acute process. No obvious effusion or pneumothorax. Skeletal structures are intact/stable. IMPRESSION: Mild right lower lobe opacity suggesting atelectasis/pneumonia again noted but appearing improved. <Electronically signed by Sunny Del Castillo > 03/21/21 [id number]
== END ==
LOC: M PLAIMG 14:28
PROVIDERS: ATTEND Internal Medicine Pulmonary Disease
DX: R91.8 Other nonspecific abnormal finding of lung field (principal)

== ENCOUNTER → 2021-04-14 | Outpatient (CLI) | payer MEDICARE, OTHER ==
--- NOTE | 2021-04-14 10:13 | REP ---
INDICATION: ABN FINDINGS OF LUNG FIELD COMPARISON: None TECHNIQUE: Axial noncontrast images from the thoracic inlet to the upper abdomen with coronal and sagittal reformations. This CT examination was performed using the following dose reduction techniques: Automated exposure control, adjustment of mA and/or kv according to the patient's size, and use of iterative reconstruction technique. FINDINGS: The lung weiner are relatively well aerated and age-appropriate. Very minimal chronic appearing changes are identified at the right apex and right base. Previously suspected areas of atelectasis/consolidation in the right middle lobe/right lower lobe have likely resolved. No acute consolidation, obvious suspicious nodule or mass. No effusion. No pneumothorax. Tracheobronchial tree is patent. Mediastinum demonstrates thyroid goiter. Atherosclerotic changes to the thoracic aorta and coronary arteries noted without aortic aneurysm or cardiomegaly. No pericardial effusion. Small hiatal hernia at the gastroesophageal junction identified. No obvious axillary, hilar, or mediastinal adenopathy noted. Limited upper abdomen again demonstrates fat containing ventral hernia to the right of midline measuring roughly 4.2 cm maximal diameter along with benign adenomatous changes to the left adrenal gland. Musculoskeletal structures demonstrate age-related changes without acute osseous abnormality. IMPRESSION: 1. Previously suggested areas of right middle lobe/right lower lobe atelectasis no longer evident. 2. Subtle presumed chronic appearing changes primarily involving the right hemithorax. No acute mediastinal or pleuroparenchymal process identified. 3. Nonacute findings as described above including thyroid goiter and upper abdominal findings. <Electronically signed by Sunny Del Castillo > 04/14/21 [id number]
== END ==
LOC: M PLAIMG 09:36
PROVIDERS: ATTEND Internal Medicine Pulmonary Disease
DX: R91.8 Other nonspecific abnormal finding of lung field (principal)

== ENCOUNTER 2021-09-04 02:53 | Emergency (ER) | payer OTHER ==
[~2021-09-04] VITALS: Ht 165.1 cm; Wt 100.0 kg
[~2021-09-04 02:53] MED LIST changes: +ALEV220T22 PO; +BACITAB PO; +CEFD300CAP PO; +CENT1TAB PO; +DOXY-350 PO; +HEMO1SUP10 PR; -LISI10TA15; +LISI10TA24; +LISI2.5T9 PO; +MED REC COMMENT; +PANT-23 PO; +SUCR1ORA PO
[2021-09-04] MEDS ORDERED: hydrOXYzine 25 MG TAB PO ONE (03:45)
[2021-09-04] MEDS ORDERED: HYDR-3363 PO (03:59)
[2021-09-04 04:56] VITALS: BP 135/68
== END 2021-09-04 05:00 | disposition home or self-care (01) ==
LOC: M ED 02:53
DX: L29.9 Pruritus, unspecified (principal); E11.9 Type 2 diabetes mellitus without complications; J44.9 Chronic obstructive pulmonary disease, unspecified; I10 Essential (primary) hypertension; Z86.79 Personal history of other diseases of the circulatory system; Z79.899 Other long term (current) drug therapy

== ENCOUNTER 2021-09-06 08:37 | Inpatient (IN) | payer OTHER ==
[~2021-09-06] VITALS: Ht 165.1 cm; Wt 83.7 kg
[~2021-09-06 08:37] MED LIST changes: +HYDR-3363 PO
[2021-09-06 10:27] LABS: BASO % 0.2 % (0.0-1.0); EOS # 0.1 10^3/uL (0.0-0.5); EOS % 1.3 % (0.0-3.0); HEMATOCRIT 31.2 % (36.0-47.0); HEMOGLOBIN 9.3 g/dl (12.0-15.5); LYMPH # 0.5 10^3/uL (1.5-5.0); LYMPH % 4.6 % (24.0-44.0); MEAN CORPUSCULAR HEMOGLOBIN 26.9 pg (27.0-33.0); MEAN CORPUSCULAR HGB CONC 29.8 g/dl (32.0-36.5); MEAN CORPUSCULAR VOLUME 90.2 fl (80.0-96.0); MONO # 0.9 10^3/uL (0.0-0.8); MONO % 7.7 % (2.0-8.0); NEUTROPHILS # 9.6 10^3/uL (1.5-8.5); NEUTROPHILS % 85.2 % (36.0-66.0); PLATELET COUNT, AUTOMATED 560 10^3/uL (150-450); RED BLOOD COUNT 3.46 10^6/uL (4.00-5.40); WHITE BLOOD COUNT 11.2 10^3/uL (4.0-10.0)
[2021-09-06 10:52] LABS: ALBUMIN 2.1 GM/DL (3.2-5.2); BILIRUBIN,DIRECT 0.2 MG/DL (0.0-0.2); BILIRUBIN,TOTAL 0.3 MG/DL (0.2-1.0); CALCIUM LEVEL 8.5 MG/DL (8.8-10.2); CK-MB VALUE MASS 6.4 NG/ML (<3.6); CREATININE FOR GFR 1.76 MG/DL (0.55-1.30); GLOMERULAR FILTRATION RATE 29.5 (>32); MB/CK RELATIVE INDEX 6.96 (< OR =4); POTASSIUM SERUM 4.6 MEQ/L (3.5-5.1); TOTAL PROTEIN 6.2 GM/DL (6.4-8.2)
[2021-09-06] MEDS ORDERED: AZITHROMYCIN INJ 500 MG, VIAL MATE ADAPTER 1 EACH in NS 250 ML IV ONE (11:05)
[2021-09-06] MEDS ORDERED: FUROSEMIDE 40MG/4ML VIAL (J1940) IV ONE (11:05)
[2021-09-06] MEDS ORDERED: cefTRIAXone SOD 1 GM in D5W MINI-BAG PLUS 50 ML IV ONE (11:05)
[2021-09-06] MEDS ORDERED: HEMO1SUP10 PR (12:31)
[2021-09-06] MEDS ORDERED: SUCR1TAB56 PO (12:31)
[2021-09-06] MEDS ORDERED: HYDR-3363 PO (12:31)
[2021-09-06] MEDS ORDERED: LISI10TA22 PO (12:31)
[2021-09-06] MEDS ORDERED: HOME MED LIST COMPLETE! XX SCH (12:35)
[2021-09-06 13:12] LABS: HEMOGLOBIN A1c 6.2 %
[2021-09-06 17:55] VITALS: BP 96/55
[2021-09-06 18:04] LABS: CK-MB VALUE MASS 4.4 NG/ML (<3.6); MB/CK RELATIVE INDEX 6.2 (< OR =4)
[2021-09-06] MEDS: FUROSEMIDE 100MG/10ML VIAL (J1940) IV SCH (18:20)
[2021-09-06 18:27] VITALS: BP 104/58
[2021-09-06 20:00] VITALS: BP 94/52
[2021-09-06] MEDS: ENOXAPARIN 30MG/0.3ML SYRINGE (J1650 PER 10MG) SC SCH (21:16)
[2021-09-06] MEDS: PANTOPRAZOLE 40MG TAB (PROTONIX) PO SCH (21:16)
[2021-09-07] VITALS (14 sets, daily range): BP systolic 94–124; BP diastolic 50–66; O2SAT 85–91
[2021-09-07 02:54] LABS: MB/CK RELATIVE INDEX 6.38 (< OR =4)
[2021-09-07 06:00] LABS: HEMATOCRIT 26.8 % (36.0-47.0); HEMOGLOBIN 7.7 g/dl (12.0-15.5); MEAN CORPUSCULAR HEMOGLOBIN 26.6 pg (27.0-33.0); MEAN CORPUSCULAR HGB CONC 28.7 g/dl (32.0-36.5); MEAN CORPUSCULAR VOLUME 92.7 fl (80.0-96.0); RED BLOOD COUNT 2.89 10^6/uL (4.00-5.40); WHITE BLOOD COUNT 8.9 10^3/uL (4.0-10.0)
[2021-09-07] MEDS: FUROSEMIDE 100MG/10ML VIAL (J1940) IV SCH ×4 (06:00→18:10)
[2021-09-07 06:11] LABS: CALCIUM LEVEL 7.8 MG/DL (8.8-10.2); CREATININE FOR GFR 1.62 MG/DL (0.55-1.30); GLOMERULAR FILTRATION RATE 32.5 (>32); POTASSIUM SERUM 4.4 MEQ/L (3.5-5.1)
[2021-09-07] MEDS: PRAVASTATIN 20 MG TAB PO SCH (08:34)
[2021-09-07] MEDS: SUCRALFATE 1 GM TAB PO SCH ×4 (08:35→20:21)
[2021-09-07 10:25] LABS: CK-MB VALUE MASS 2.3 NG/ML (<3.6); MB/CK RELATIVE INDEX 5.9 (< OR =4)
[2021-09-07 16:02] LABS: MAGNESIUM LEVEL 2.1 MG/DL (1.7-2.2)
[2021-09-07 16:45] LABS: APPEARANCE, URINE HAZY (CLEAR); BACTERIA, URINE AUTO NEGATIVE (NEGATIVE); BILIRUBIN, URINE AUTO NEGATIVE (NEGATIVE); BLOOD, URINE BLOOD NEGATIVE (NEGATIVE); COLOR, URINE YELLOW (YELLOW); GLUCOSE, URINE (UA) AUTO NEGATIVE (NEGATIVE); KETONE, URINE AUTO NEGATIVE (NEGATIVE); LEUKOCYTE ESTERASE, URINE AUTO TRACE (NEGATIVE); MUCUS, URINE SMALL (NEGATIVE); NITRITE, URINE AUTO NEGATIVE (NEGATIVE); PROTEIN, URINE AUTO NEGATIVE (NEGATIVE); RBC, URINE AUTO 1 /HPF (0-3); SPECIFIC GRAVITY URINE AUTO 1.016 (1.002-1.035); SQUAMOUS EPITHELIAL CELL UR AU 3 /HPF (0-6); UROBILINOGEN, URINE AUTO 0.2 mg/dL (0.0-2.0); WBC, URINE AUTO 13 /HPF (0-3)
[2021-09-07 17:20] LABS: ABG BASE EXCESS 6.4 (-2.0-2.0); ABG O2 SATURATION 86.7 % (95.0-99.0); ABG PARTIAL PRESSURE CO2 59.5 mmHg (35.0-45.0); ABG PARTIAL PRESSURE O2 54.7 mmHg (75.0-100.0); ABG STANDARD HCO3 30.1 MEQ/L (22.0-26.0); ABG TOTAL CO2 34.8 MEQ/L (23.0-31.0); ABG pH (ARTERIAL) 7.362 UNITS (7.350-7.450)
[2021-09-07] MEDS: PANTOPRAZOLE 40MG TAB (PROTONIX) PO SCH (20:21)
[2021-09-07] MEDS: ENOXAPARIN 30MG/0.3ML SYRINGE (J1650 PER 10MG) SC SCH (20:21)
[2021-09-07] MEDS ORDERED: FUROSEMIDE 40MG/4ML VIAL (J1940) IV ONE (22:10)
[2021-09-08] VITALS (12 sets, daily range): BP systolic 95–129; BP diastolic 50–82; O2SAT 84–95
[2021-09-08 06:18] LABS: HEMATOCRIT 32.7 % (36.0-47.0); HEMOGLOBIN 9.6 g/dl (12.0-15.5); MEAN CORPUSCULAR HEMOGLOBIN 27.1 pg (27.0-33.0); MEAN CORPUSCULAR HGB CONC 29.4 g/dl (32.0-36.5); MEAN CORPUSCULAR VOLUME 92.4 fl (80.0-96.0); PLATELET COUNT, AUTOMATED 426 10^3/uL (150-450); RED BLOOD COUNT 3.54 10^6/uL (4.00-5.40); WHITE BLOOD COUNT 8.9 10^3/uL (4.0-10.0)
[2021-09-08 06:39] LABS: CALCIUM LEVEL 8.2 MG/DL (8.8-10.2); CREATININE FOR GFR 1.26 MG/DL (0.55-1.30); GLOMERULAR FILTRATION RATE 43.4 (>32); POTASSIUM SERUM 3.8 MEQ/L (3.5-5.1)
[2021-09-08] MEDS: FUROSEMIDE 100MG/10ML VIAL (J1940) IV SCH ×2 (08:27→17:26)
[2021-09-08] MEDS: PRAVASTATIN 20 MG TAB PO SCH (08:28)
[2021-09-08] MEDS: SUCRALFATE 1 GM TAB PO SCH ×4 (08:28→20:13)
[2021-09-08] MEDS: ENOXAPARIN 30MG/0.3ML SYRINGE (J1650 PER 10MG) SC SCH (20:13)
[2021-09-08] MEDS: PANTOPRAZOLE 40MG TAB (PROTONIX) PO SCH (20:13)
[2021-09-09] VITALS (23 sets, daily range): BP systolic 97–145; BP diastolic 52–66; O2SAT 86–94
[2021-09-09 04:50] LABS: HEMATOCRIT 37.6 % (36.0-47.0); HEMOGLOBIN 10.6 g/dl (12.0-15.5); MEAN CORPUSCULAR HEMOGLOBIN 26.8 pg (27.0-33.0); MEAN CORPUSCULAR HGB CONC 28.2 g/dl (32.0-36.5); MEAN CORPUSCULAR VOLUME 94.9 fl (80.0-96.0); PLATELET COUNT, AUTOMATED 384 10^3/uL (150-450); RED BLOOD COUNT 3.96 10^6/uL (4.00-5.40); WHITE BLOOD COUNT 9.2 10^3/uL (4.0-10.0)
[2021-09-09 05:17] LABS: CALCIUM LEVEL 8.3 MG/DL (8.8-10.2); CREATININE FOR GFR 1.03 MG/DL (0.55-1.30); GLOMERULAR FILTRATION RATE 54.7 (>32); POTASSIUM SERUM 3.7 MEQ/L (3.5-5.1)
[2021-09-09] MEDS: PRAVASTATIN 20 MG TAB PO SCH (08:28)
[2021-09-09] MEDS: SUCRALFATE 1 GM TAB PO SCH ×4 (08:29→20:16)
[2021-09-09] MEDS: PIPERACILLIN/TAZOBACTAM SOD 3.375 GM in D5W MINI-BAG PLUS 50 ML IV SCH ×3 (09:51→20:16)
[2021-09-09] MEDS ORDERED: ISOVUE-370 76% 100ML VIAL As Ordered ONE (11:46)
[2021-09-09] MEDS: AZITHROMYCIN INJ 500 MG, VIAL MATE ADAPTER 1 EACH in NS 250 ML IV SCH (12:19)
[2021-09-09 16:12] LABS: ABG BASE EXCESS 8.3 (-2.0-2.0); ABG HCO3 39.3 MEQ/L (22.0-26.0); ABG O2 SATURATION 89.7 % (95.0-99.0); ABG PARTIAL PRESSURE O2 60.1 mmHg (75.0-100.0); ABG STANDARD HCO3 31.9 MEQ/L (22.0-26.0); ABG TOTAL CO2 42.3 MEQ/L (23.0-31.0)
[2021-09-09 16:15] LABS: ABG PARTIAL PRESSURE CO2 99.1 mmHg (35.0-45.0); ABG pH (ARTERIAL) 7.216 UNITS (7.350-7.450)
[2021-09-09] MEDS ORDERED: methylPREDNISolone 125MG 2ML VIAL IV ONE (17:00)
[2021-09-09 17:09] LABS: FREE KAPPA LIGHT CHAINS SERUM 44.3 mg/L (3.3-19.4); FREE LAMBDA LIGHT CHAINS SERUM 30.3 mg/L (5.7-26.3); KAPPA/LAMBDA RATIO SERUM 1.46 (0.26-1.65)
[2021-09-09 17:44] LABS: ABG BASE EXCESS 3.7 (-2.0-2.0); ABG HCO3 33.8 MEQ/L (22.0-26.0); ABG O2 SATURATION 96.3 % (95.0-99.0); ABG PARTIAL PRESSURE O2 86.7 mmHg (75.0-100.0); ABG STANDARD HCO3 27.8 MEQ/L (22.0-26.0); ABG TOTAL CO2 36.4 MEQ/L (23.0-31.0)
[2021-09-09 17:46] LABS: ABG PARTIAL PRESSURE CO2 84.4 mmHg (35.0-45.0)
[2021-09-09] MEDS: ENOXAPARIN 30MG/0.3ML SYRINGE (J1650 PER 10MG) SC SCH (20:16)
[2021-09-09] MEDS: PANTOPRAZOLE 40MG TAB (PROTONIX) PO SCH (20:16)
[2021-09-09] MEDS: NYSTATIN 100,000 UNITS/GM TOPICAL PWD 15 GM TOP SCH (20:17)
[2021-09-09 20:29] LABS: ABG BASE EXCESS 11.1 (-2.0-2.0); ABG O2 SATURATION 97.8 % (95.0-99.0); ABG PARTIAL PRESSURE O2 101.8 mmHg (75.0-100.0); ABG STANDARD HCO3 34.8 MEQ/L (22.0-26.0); ABG TOTAL CO2 43.7 MEQ/L (23.0-31.0); ABG pH (ARTERIAL) 7.279 UNITS (7.350-7.450)
[2021-09-09 20:31] LABS: ABG PARTIAL PRESSURE CO2 89.4 mmHg (35.0-45.0)
[2021-09-09] MEDS: methylPREDNISolone 125MG 2ML VIAL IV SCH (22:12)
[2021-09-10] VITALS (11 sets, daily range): BP systolic 99–123; BP diastolic 52–68
[2021-09-10] MEDS: PIPERACILLIN/TAZOBACTAM SOD 3.375 GM in D5W MINI-BAG PLUS 50 ML IV SCH ×4 (02:03→21:08)
[2021-09-10 02:43] LABS: ABG HCO3 36.3 MEQ/L (22.0-26.0); ABG O2 SATURATION 96.6 % (95.0-99.0); ABG PARTIAL PRESSURE O2 82.1 mmHg (75.0-100.0); ABG STANDARD HCO3 31.8 MEQ/L (22.0-26.0); ABG TOTAL CO2 38.5 MEQ/L (23.0-31.0); ABG pH (ARTERIAL) 7.322 UNITS (7.350-7.450)
[2021-09-10 02:48] LABS: ABG PARTIAL PRESSURE CO2 71.7 mmHg (35.0-45.0)
[2021-09-10] MEDS ORDERED: OLANZapine INTRAMUSCULAR 10MG VIAL IM PRN (03:00)
[2021-09-10] MEDS: methylPREDNISolone 125MG 2ML VIAL IV SCH ×4 (04:18→22:37)
[2021-09-10 05:25] LABS: HEMATOCRIT 36.7 % (36.0-47.0); HEMOGLOBIN 10.5 g/dl (12.0-15.5); MEAN CORPUSCULAR HEMOGLOBIN 27.1 pg (27.0-33.0); MEAN CORPUSCULAR HGB CONC 28.6 g/dl (32.0-36.5); MEAN CORPUSCULAR VOLUME 94.8 fl (80.0-96.0); PLATELET COUNT, AUTOMATED 323 10^3/uL (150-450); RED BLOOD COUNT 3.87 10^6/uL (4.00-5.40); WHITE BLOOD COUNT 8.1 10^3/uL (4.0-10.0)
[2021-09-10 05:49] LABS: BLOOD UREA NITROGEN 30 MG/DL (7-18); CALCIUM LEVEL 8.4 MG/DL (8.8-10.2); CARBON DIOXIDE LEVEL 38 MEQ/L (21-32); CHLORIDE LEVEL 102 MEQ/L (98-107); CREATININE FOR GFR 0.87 MG/DL (0.55-1.30); GLOMERULAR FILTRATION RATE > 60.0 (>32); GLUCOSE, FASTING 135 MG/DL (70-100); SODIUM LEVEL 142 MEQ/L (136-145)
[2021-09-10] MEDS: SUCRALFATE 1 GM TAB PO SCH ×4 (08:20→20:58)
[2021-09-10] MEDS: PRAVASTATIN 20 MG TAB PO SCH (08:20)
[2021-09-10] MEDS: NYSTATIN 100,000 UNITS/GM TOPICAL PWD 15 GM TOP SCH ×2 (08:20→21:03)
[2021-09-10] MEDS: AZITHROMYCIN INJ 500 MG, VIAL MATE ADAPTER 1 EACH in NS 250 ML IV SCH (10:05)
[2021-09-10 11:10] LABS: ABG BASE EXCESS 10.3 (-2.0-2.0); ABG HCO3 37.4 MEQ/L (22.0-26.0); ABG O2 SATURATION 93.6 % (95.0-99.0); ABG PARTIAL PRESSURE O2 65.8 mmHg (75.0-100.0); ABG STANDARD HCO3 33.9 MEQ/L (22.0-26.0); ABG TOTAL CO2 39.3 MEQ/L (23.0-31.0); ABG pH (ARTERIAL) 7.384 UNITS (7.350-7.450)
[2021-09-10 19:53] LABS: MAGNESIUM LEVEL 2.2 MG/DL (1.7-2.2)
[2021-09-10] MEDS: PANTOPRAZOLE 40MG TAB (PROTONIX) PO SCH (20:58)
[2021-09-10] MEDS: LACTOBACILLUS ACIDOPHILUS CAP (BACID) PO SCH (20:58)
[2021-09-10] MEDS: ENOXAPARIN 30MG/0.3ML SYRINGE (J1650 PER 10MG) SC SCH (21:02)
[2021-09-11] VITALS: BP 120/69
[2021-09-11 04:00] VITALS: BP 132/63
[2021-09-11] MEDS: methylPREDNISolone 125MG 2ML VIAL IV SCH ×3 (04:10→16:55)
[2021-09-11] MEDS: PIPERACILLIN/TAZOBACTAM SOD 3.375 GM in D5W MINI-BAG PLUS 50 ML IV SCH ×4 (04:10→20:58)
[2021-09-11 06:45] LABS: HEMATOCRIT 34.6 % (36.0-47.0); HEMOGLOBIN 10.1 g/dl (12.0-15.5); MEAN CORPUSCULAR HEMOGLOBIN 26.9 pg (27.0-33.0); MEAN CORPUSCULAR HGB CONC 29.2 g/dl (32.0-36.5); MEAN CORPUSCULAR VOLUME 92.3 fl (80.0-96.0); PLATELET COUNT, AUTOMATED 337 10^3/uL (150-450); RED BLOOD COUNT 3.75 10^6/uL (4.00-5.40); WHITE BLOOD COUNT 15.1 10^3/uL (4.0-10.0)
[2021-09-11 07:10] LABS: BLOOD UREA NITROGEN 39 MG/DL (7-18); CALCIUM LEVEL 8.7 MG/DL (8.8-10.2); CARBON DIOXIDE LEVEL 36 MEQ/L (21-32); CHLORIDE LEVEL 98 MEQ/L (98-107); CREATININE FOR GFR 0.83 MG/DL (0.55-1.30); GLOMERULAR FILTRATION RATE > 60.0 (>32); GLUCOSE, FASTING 127 MG/DL (70-100); POTASSIUM SERUM 3.7 MEQ/L (3.5-5.1); SODIUM LEVEL 139 MEQ/L (136-145)
[2021-09-11 08:00] VITALS: BP 155/71
[2021-09-11] MEDS: PRAVASTATIN 20 MG TAB PO SCH (08:27)
[2021-09-11] MEDS: SUCRALFATE 1 GM TAB PO SCH ×4 (08:28→20:58)
[2021-09-11] MEDS: NYSTATIN 100,000 UNITS/GM TOPICAL PWD 15 GM TOP SCH ×2 (08:28→21:10)
[2021-09-11] MEDS: LACTOBACILLUS ACIDOPHILUS CAP (BACID) PO SCH ×2 (08:28→16:55)
[2021-09-11] MEDS: AZITHROMYCIN INJ 500 MG, VIAL MATE ADAPTER 1 EACH in NS 250 ML IV SCH (10:34)
[2021-09-11 12:00] VITALS: BP 146/69
[2021-09-11] MEDS ORDERED: FUROSEMIDE 40MG/4ML VIAL (J1940) IV ONE (13:20)
[2021-09-11 15:12] LABS: MYCOPLASMA PNEUMONIAE IgG 490 U/mL (0-99); MYCOPLASMA PNEUMONIAE IgM <770 U/mL (0-769)
[2021-09-11 16:00] VITALS: BP 138/84
[2021-09-11 19:07] LABS: MAGNESIUM LEVEL 2.3 MG/DL (1.7-2.2)
[2021-09-11 20:00] VITALS: BP 146/68
[2021-09-11] MEDS: PANTOPRAZOLE 40MG TAB (PROTONIX) PO SCH (20:58)
[2021-09-11] MEDS: ENOXAPARIN 30MG/0.3ML SYRINGE (J1650 PER 10MG) SC SCH (20:58)
[2021-09-12] VITALS: BP 130/69
[2021-09-12] MEDS: methylPREDNISolone 125MG 2ML VIAL IV SCH ×5 (00:06→22:45)
[2021-09-12] MEDS: PIPERACILLIN/TAZOBACTAM SOD 3.375 GM in D5W MINI-BAG PLUS 50 ML IV SCH ×4 (03:48→20:15)
[2021-09-12 04:00] VITALS: BP 137/62
[2021-09-12 06:00] LABS: CALCIUM LEVEL 7.9 MG/DL (8.8-10.2); CREATININE FOR GFR 0.97 MG/DL (0.55-1.30); GLOMERULAR FILTRATION RATE 58.7 (>32)
[2021-09-12 06:01] LABS: C REACTIVE PROTEIN QUANTITATIV 3.35 MG/DL (0.00-0.30)
[2021-09-12 08:00] VITALS: BP 158/97
[2021-09-12] MEDS ORDERED: FUROSEMIDE 40MG/4ML VIAL (J1940) IV ONE (08:35)
[2021-09-12 08:41] LABS: ABG BASE EXCESS 11.4 (-2.0-2.0); ABG O2 SATURATION 88.8 % (95.0-99.0); ABG PARTIAL PRESSURE O2 56.6 mmHg (75.0-100.0); ABG STANDARD HCO3 34.9 MEQ/L (22.0-26.0); ABG TOTAL CO2 43.5 MEQ/L (23.0-31.0)
[2021-09-12 08:47] LABS: ABG PARTIAL PRESSURE CO2 83.2 mmHg (35.0-45.0)
[2021-09-12] MEDS: LACTOBACILLUS ACIDOPHILUS CAP (BACID) PO SCH ×2 (09:01→16:59)
[2021-09-12] MEDS: SUCRALFATE 1 GM TAB PO SCH ×4 (09:01→20:15)
[2021-09-12] MEDS: PRAVASTATIN 20 MG TAB PO SCH (09:01)
[2021-09-12] MEDS: NYSTATIN 100,000 UNITS/GM TOPICAL PWD 15 GM TOP SCH ×2 (09:02→20:16)
[2021-09-12] MEDS ORDERED: HYDROCORTISONE 2.5% 20GM OINTMENT TOP PRN (10:10)
[2021-09-12 10:39] LABS: HEMATOCRIT 41.3 % (36.0-47.0); HEMOGLOBIN 11.8 g/dl (12.0-15.5); MEAN CORPUSCULAR HEMOGLOBIN 27.1 pg (27.0-33.0); MEAN CORPUSCULAR HGB CONC 28.6 g/dl (32.0-36.5); MEAN CORPUSCULAR VOLUME 94.9 fl (80.0-96.0); PLATELET COUNT, AUTOMATED 353 10^3/uL (150-450); RED BLOOD COUNT 4.35 10^6/uL (4.00-5.40); WHITE BLOOD COUNT 15.1 10^3/uL (4.0-10.0)
[2021-09-12 12:00] VITALS: BP 137/60
[2021-09-12 16:00] VITALS: BP 131/65
[2021-09-12 16:12] LABS: BODY FLUID CULTURE Not indicated. (.); LEGIONELLA ANTIGEN URINE Negative (Negative); ORGANISM ID Not indicated. (.); SPECIMEN SOURCE Urine (.); URINE STREP PNEUMONIAE ANTIGEN Negative (Negative)
[2021-09-12] MEDS ORDERED: IPRATROPIUM 0.5MG/ALBUTEROL 2.5MG INH SOL UD 3ML (DUONEB) NEB PRN (17:40)
[2021-09-12 20:00] VITALS: BP 125/61
[2021-09-12] MEDS: PANTOPRAZOLE 40MG TAB (PROTONIX) PO SCH (20:15)
[2021-09-12] MEDS: ENOXAPARIN 30MG/0.3ML SYRINGE (J1650 PER 10MG) SC SCH (20:15)
[2021-09-13] VITALS (11 sets, daily range): BP systolic 130–159; BP diastolic 59–68
[2021-09-13] MEDS: PIPERACILLIN/TAZOBACTAM SOD 3.375 GM in D5W MINI-BAG PLUS 50 ML IV SCH ×4 (03:40→20:25)
[2021-09-13] MEDS: methylPREDNISolone 125MG 2ML VIAL IV SCH ×4 (04:53→22:52)
[2021-09-13 07:06] LABS: HEMATOCRIT 37.3 % (36.0-47.0); HEMOGLOBIN 10.6 g/dl (12.0-15.5); MEAN CORPUSCULAR HEMOGLOBIN 26.6 pg (27.0-33.0); MEAN CORPUSCULAR HGB CONC 28.4 g/dl (32.0-36.5); MEAN CORPUSCULAR VOLUME 93.7 fl (80.0-96.0); PLATELET COUNT, AUTOMATED 321 10^3/uL (150-450); RED BLOOD COUNT 3.98 10^6/uL (4.00-5.40); WHITE BLOOD COUNT 13.1 10^3/uL (4.0-10.0)
[2021-09-13 07:32] LABS: BLOOD UREA NITROGEN 45 MG/DL (7-18); CALCIUM LEVEL 8.4 MG/DL (8.8-10.2); CARBON DIOXIDE LEVEL 41 MEQ/L (21-32); CHLORIDE LEVEL 100 MEQ/L (98-107); GLOMERULAR FILTRATION RATE > 60.0 (>32); GLUCOSE, FASTING 115 MG/DL (70-100); MAGNESIUM LEVEL 2.3 MG/DL (1.8-2.4); POTASSIUM SERUM 3.4 MEQ/L (3.5-5.1); SODIUM LEVEL 144 MEQ/L (136-145)
[2021-09-13] MEDS: PRAVASTATIN 20 MG TAB PO SCH (08:22)
[2021-09-13] MEDS: LACTOBACILLUS ACIDOPHILUS CAP (BACID) PO SCH ×2 (08:22→18:16)
[2021-09-13] MEDS: SUCRALFATE 1 GM TAB PO SCH ×4 (08:23→20:25)
[2021-09-13] MEDS: FUROSEMIDE 20 MG TAB PO SCH ×2 (08:23→16:02)
[2021-09-13] MEDS: NYSTATIN 100,000 UNITS/GM TOPICAL PWD 15 GM TOP SCH ×2 (08:23→20:25)
[2021-09-13] MEDS ORDERED: POTASSIUM CHLORIDE 10MEQ SR TABLET PO ONE (13:00)
[2021-09-13 15:45] LABS: HEMATOCRIT 36.6 % (36.0-47.0); HEMOGLOBIN 10.6 g/dl (12.0-15.5); MEAN CORPUSCULAR HEMOGLOBIN 26.9 pg (27.0-33.0); MEAN CORPUSCULAR VOLUME 92.9 fl (80.0-96.0); PLATELET COUNT, AUTOMATED 295 10^3/uL (150-450); RED BLOOD COUNT 3.94 10^6/uL (4.00-5.40)
[2021-09-13] MEDS: ENOXAPARIN 30MG/0.3ML SYRINGE (J1650 PER 10MG) SC SCH (20:25)
[2021-09-13] MEDS: PANTOPRAZOLE 40MG TAB (PROTONIX) PO SCH (20:25)
[2021-09-14] VITALS (7 sets, daily range): BP systolic 123–155; BP diastolic 58–78
[2021-09-14] MEDS: PIPERACILLIN/TAZOBACTAM SOD 3.375 GM in D5W MINI-BAG PLUS 50 ML IV SCH ×4 (02:57→20:41)
[2021-09-14] MEDS: methylPREDNISolone 125MG 2ML VIAL IV SCH ×4 (05:08→23:10)
[2021-09-14 07:59] LABS: HEMATOCRIT 35.8 % (36.0-47.0); HEMOGLOBIN 10.5 g/dl (12.0-15.5); MEAN CORPUSCULAR HGB CONC 29.3 g/dl (32.0-36.5); PLATELET COUNT, AUTOMATED 299 10^3/uL (150-450); RED BLOOD COUNT 3.89 10^6/uL (4.00-5.40); WHITE BLOOD COUNT 12.5 10^3/uL (4.0-10.0)
[2021-09-14 08:19] LABS: ALBUMIN 1.9 GM/DL (3.2-5.2); ALT/SGPT 43 U/L (12-78); BILIRUBIN,TOTAL 0.3 MG/DL (0.2-1.0); BLOOD UREA NITROGEN 41 MG/DL (7-18); CALCIUM LEVEL 8.4 MG/DL (8.8-10.2); CARBON DIOXIDE LEVEL 40 MEQ/L (21-32); CHLORIDE LEVEL 102 MEQ/L (98-107); CREATININE FOR GFR 0.82 MG/DL (0.55-1.30); GLOMERULAR FILTRATION RATE > 60.0 (>32); GLUCOSE, FASTING 126 MG/DL (70-100); POTASSIUM SERUM 3.7 MEQ/L (3.5-5.1); SODIUM LEVEL 146 MEQ/L (136-145); TOTAL PROTEIN 6.2 GM/DL (6.4-8.2)
[2021-09-14] MEDS: SUCRALFATE 1 GM TAB PO SCH ×4 (09:22→20:41)
[2021-09-14] MEDS: PRAVASTATIN 20 MG TAB PO SCH (09:22)
[2021-09-14] MEDS: LACTOBACILLUS ACIDOPHILUS CAP (BACID) PO SCH ×2 (09:22→17:36)
[2021-09-14] MEDS: NYSTATIN 100,000 UNITS/GM TOPICAL PWD 15 GM TOP SCH ×2 (09:22→20:41)
[2021-09-14] MEDS: FUROSEMIDE 20 MG TAB PO SCH ×2 (09:23→16:18)
[2021-09-14] MEDS: PANTOPRAZOLE 40MG TAB (PROTONIX) PO SCH (20:41)
[2021-09-14] MEDS: ENOXAPARIN 30MG/0.3ML SYRINGE (J1650 PER 10MG) SC SCH (20:41)
[2021-09-15] VITALS (12 sets, daily range): BP systolic 105–150; BP diastolic 58–78
[2021-09-15] MEDS: PIPERACILLIN/TAZOBACTAM SOD 3.375 GM in D5W MINI-BAG PLUS 50 ML IV SCH ×2 (02:47→07:49)
[2021-09-15] MEDS: methylPREDNISolone 125MG 2ML VIAL IV SCH ×4 (05:13→23:56)
[2021-09-15] MEDS: LACTOBACILLUS ACIDOPHILUS CAP (BACID) PO SCH ×2 (07:49→17:10)
[2021-09-15] MEDS: SUCRALFATE 1 GM TAB PO SCH ×4 (07:49→20:30)
[2021-09-15] MEDS: FUROSEMIDE 20 MG TAB PO SCH ×2 (07:49→16:17)
[2021-09-15] MEDS: PRAVASTATIN 20 MG TAB PO SCH (07:49)
[2021-09-15] MEDS: NYSTATIN 100,000 UNITS/GM TOPICAL PWD 15 GM TOP SCH ×2 (07:50→20:30)
[2021-09-15 09:24] LABS: MEAN CORPUSCULAR HEMOGLOBIN 27.1 pg (27.0-33.0); MEAN CORPUSCULAR HGB CONC 28.9 g/dl (32.0-36.5); MEAN CORPUSCULAR VOLUME 93.6 fl (80.0-96.0); PLATELET COUNT, AUTOMATED 282 10^3/uL (150-450); RED BLOOD COUNT 4.06 10^6/uL (4.00-5.40); WHITE BLOOD COUNT 13.3 10^3/uL (4.0-10.0)
[2021-09-15 09:50] LABS: CALCIUM LEVEL 8.3 MG/DL (8.8-10.2); CREATININE FOR GFR 1.03 MG/DL (0.55-1.30); GLOMERULAR FILTRATION RATE 54.7 (>32)
[2021-09-15] MEDS ORDERED: FLUCONAZOLE 50MG TABLET PO ONE (16:00)
[2021-09-15] MEDS: NYSTATIN 500,000 U/5 ML SUSP UDC SS SCH ×2 (17:10→23:55)
[2021-09-15] MEDS: ENOXAPARIN 30MG/0.3ML SYRINGE (J1650 PER 10MG) SC SCH (20:30)
[2021-09-15] MEDS: PANTOPRAZOLE 40MG TAB (PROTONIX) PO SCH (20:30)
[2021-09-16] VITALS (9 sets, daily range): BP systolic 115–148; BP diastolic 56–94
[2021-09-16] MEDS: methylPREDNISolone 125MG 2ML VIAL IV SCH ×2 (05:02→20:36)
[2021-09-16] MEDS: NYSTATIN 500,000 U/5 ML SUSP UDC SS SCH ×3 (05:03→17:29)
[2021-09-16 05:22] LABS: HEMATOCRIT 39.1 % (36.0-47.0); HEMOGLOBIN 11.2 g/dl (12.0-15.5); MEAN CORPUSCULAR HEMOGLOBIN 27.3 pg (27.0-33.0); MEAN CORPUSCULAR HGB CONC 28.6 g/dl (32.0-36.5); MEAN CORPUSCULAR VOLUME 95.4 fl (80.0-96.0); PLATELET COUNT, AUTOMATED 323 10^3/uL (150-450); WHITE BLOOD COUNT 16.2 10^3/uL (4.0-10.0)
[2021-09-16 05:35] LABS: BLOOD UREA NITROGEN 42 MG/DL (7-18); C REACTIVE PROTEIN QUANTITATIV 0.38 MG/DL (0.00-0.30); CALCIUM LEVEL 8.2 MG/DL (8.8-10.2); CARBON DIOXIDE LEVEL 38 MEQ/L (21-32); CHLORIDE LEVEL 101 MEQ/L (98-107); CREATININE FOR GFR 0.95 MG/DL (0.55-1.30); GLOMERULAR FILTRATION RATE > 60.0 (>32); GLUCOSE, FASTING 133 MG/DL (70-100); POTASSIUM SERUM 3.7 MEQ/L (3.5-5.1); SODIUM LEVEL 143 MEQ/L (136-145)
[2021-09-16] MEDS: LACTOBACILLUS ACIDOPHILUS CAP (BACID) PO SCH ×2 (09:22→17:29)
[2021-09-16] MEDS: FUROSEMIDE 20 MG TAB PO SCH ×2 (09:22→17:30)
[2021-09-16] MEDS: PRAVASTATIN 20 MG TAB PO SCH (09:23)
[2021-09-16] MEDS: SUCRALFATE 1 GM TAB PO SCH ×4 (09:23→20:36)
[2021-09-16] MEDS: NYSTATIN 100,000 UNITS/GM TOPICAL PWD 15 GM TOP SCH ×2 (09:23→20:36)
[2021-09-16] MEDS: ENOXAPARIN 30MG/0.3ML SYRINGE (J1650 PER 10MG) SC SCH (20:36)
[2021-09-16] MEDS: PANTOPRAZOLE 40MG TAB (PROTONIX) PO SCH (20:36)
[2021-09-17] VITALS (10 sets, daily range): BP systolic 103–137; BP diastolic 57–99
[2021-09-17] MEDS: NYSTATIN 500,000 U/5 ML SUSP UDC SS SCH ×5 (00:38→23:55)
[2021-09-17 02:07] LABS: ASPERGILLUS FLAVUS ABY Negative (Neg:<1:1); ASPERGILLUS FUMIGATUS ABY Negative (Neg:<1:1); ASPERGILLUS NIGER ABY Negative (Neg:<1:1)
[2021-09-17 04:44] LABS: HEMATOCRIT 35.2 % (36.0-47.0); HEMOGLOBIN 9.9 g/dl (12.0-15.5); MEAN CORPUSCULAR HEMOGLOBIN 26.5 pg (27.0-33.0); MEAN CORPUSCULAR HGB CONC 28.1 g/dl (32.0-36.5); MEAN CORPUSCULAR VOLUME 94.1 fl (80.0-96.0); PLATELET COUNT, AUTOMATED 267 10^3/uL (150-450); RED BLOOD COUNT 3.74 10^6/uL (4.00-5.40); WHITE BLOOD COUNT 15.8 10^3/uL (4.0-10.0)
[2021-09-17 05:07] LABS: BLOOD UREA NITROGEN 53 MG/DL (7-18); CALCIUM LEVEL 8.2 MG/DL (8.8-10.2); CARBON DIOXIDE LEVEL 41 MEQ/L (21-32); CHLORIDE LEVEL 100 MEQ/L (98-107); CREATININE FOR GFR 0.82 MG/DL (0.55-1.30); GLOMERULAR FILTRATION RATE > 60.0 (>32); GLUCOSE, FASTING 129 MG/DL (70-100); POTASSIUM SERUM 3.9 MEQ/L (3.5-5.1); SODIUM LEVEL 145 MEQ/L (136-145)
[2021-09-17] MEDS: SUCRALFATE 1 GM TAB PO SCH ×4 (08:05→20:19)
[2021-09-17] MEDS: methylPREDNISolone 125MG 2ML VIAL IV SCH ×2 (08:05→20:19)
[2021-09-17] MEDS: PRAVASTATIN 20 MG TAB PO SCH (08:05)
[2021-09-17] MEDS: LACTOBACILLUS ACIDOPHILUS CAP (BACID) PO SCH ×2 (08:05→17:58)
[2021-09-17] MEDS: FUROSEMIDE 20 MG TAB PO SCH (08:05)
[2021-09-17] MEDS: NYSTATIN 100,000 UNITS/GM TOPICAL PWD 15 GM TOP SCH ×2 (08:06→20:19)
[2021-09-17 19:10] LABS: HEMATOCRIT 33.8 % (36.0-47.0); HEMOGLOBIN 9.6 g/dl (12.0-15.5)
[2021-09-17] MEDS: ENOXAPARIN 30MG/0.3ML SYRINGE (J1650 PER 10MG) SC SCH (20:18)
[2021-09-17] MEDS: PANTOPRAZOLE 40MG TAB (PROTONIX) PO SCH (20:19)
[2021-09-18] VITALS (18 sets, daily range): BP systolic 87–138; BP diastolic 50–70; O2SAT 88–96
[2021-09-18 02:37] LABS: HEMATOCRIT 31.3 % (36.0-47.0); MEAN CORPUSCULAR HEMOGLOBIN 26.8 pg (27.0-33.0); MEAN CORPUSCULAR HGB CONC 28.8 g/dl (32.0-36.5); MEAN CORPUSCULAR VOLUME 93.2 fl (80.0-96.0); PLATELET COUNT, AUTOMATED 252 10^3/uL (150-450); RED BLOOD COUNT 3.36 10^6/uL (4.00-5.40); WHITE BLOOD COUNT 15.5 10^3/uL (4.0-10.0)
[2021-09-18] MEDS ORDERED: NS 500 ML IV ONE (02:55)
[2021-09-18 02:57] LABS: CALCIUM LEVEL 8.1 MG/DL (8.8-10.2); CREATININE FOR GFR 1.13 MG/DL (0.55-1.30); GLOMERULAR FILTRATION RATE 49.2 (>32); POTASSIUM SERUM 4.1 MEQ/L (3.5-5.1)
[2021-09-18] MEDS: NYSTATIN 500,000 U/5 ML SUSP UDC SS SCH ×2 (05:27→11:19)
[2021-09-18] MEDS: SUCRALFATE 1 GM TAB PO SCH ×4 (07:30→20:57)
[2021-09-18] MEDS: LACTOBACILLUS ACIDOPHILUS CAP (BACID) PO SCH ×2 (08:58→18:14)
[2021-09-18] MEDS: PRAVASTATIN 20 MG TAB PO SCH (08:58)
[2021-09-18] MEDS: methylPREDNISolone 125MG 2ML VIAL IV SCH ×2 (08:58→20:58)
[2021-09-18] MEDS: NYSTATIN 100,000 UNITS/GM TOPICAL PWD 15 GM TOP SCH ×2 (08:59→20:59)
[2021-09-18] MEDS: PANTOPRAZOLE 40MG TAB (PROTONIX) PO SCH (20:58)
[2021-09-19] VITALS (15 sets, daily range): BP systolic 108–135; BP diastolic 52–63; O2SAT 94–96
[2021-09-19 05:53] LABS: HEMATOCRIT 25.9 % (36.0-47.0); HEMOGLOBIN 7.8 g/dl (12.0-15.5); MEAN CORPUSCULAR HEMOGLOBIN 27.4 pg (27.0-33.0); MEAN CORPUSCULAR HGB CONC 30.1 g/dl (32.0-36.5); MEAN CORPUSCULAR VOLUME 90.9 fl (80.0-96.0); PLATELET COUNT, AUTOMATED 219 10^3/uL (150-450); RED BLOOD COUNT 2.85 10^6/uL (4.00-5.40)
[2021-09-19 06:13] LABS: CALCIUM LEVEL 7.9 MG/DL (8.8-10.2); CREATININE FOR GFR 1.24 MG/DL (0.55-1.30); GLOMERULAR FILTRATION RATE 44.2 (>32); POTASSIUM SERUM 4.3 MEQ/L (3.5-5.1)
[2021-09-19] MEDS: NYSTATIN 100,000 UNITS/GM TOPICAL PWD 15 GM TOP SCH ×2 (09:09→21:20)
[2021-09-19] MEDS: PRAVASTATIN 20 MG TAB PO SCH (09:09)
[2021-09-19] MEDS: LACTOBACILLUS ACIDOPHILUS CAP (BACID) PO SCH ×2 (09:09→17:14)
[2021-09-19] MEDS: SUCRALFATE 1 GM TAB PO SCH ×4 (09:09→21:20)
[2021-09-19] MEDS: methylPREDNISolone 125MG 2ML VIAL IV SCH ×2 (09:10→21:19)
[2021-09-19] MEDS: PANTOPRAZOLE 40MG VIAL (C9113 PER 1) IV SCH ×2 (09:17→21:19)
[2021-09-19] MEDS ORDERED: ISOVUE-370 76% 100ML VIAL As Ordered ONE (10:01)
[2021-09-19 14:02] LABS: HEMATOCRIT 27.6 % (36.0-47.0); HEMOGLOBIN 7.9 g/dl (12.0-15.5)
[2021-09-19] MEDS: OCTREOTIDE ACETATE 100MCG/ML VIAL **IV ADMINISTRATION ONLY IV SCH ×2 (14:29→21:20)
[2021-09-20] VITALS (19 sets, daily range): BP systolic 97–113; BP diastolic 52–55; O2SAT 85–99
[2021-09-20] MEDS: OCTREOTIDE ACETATE 100MCG/ML VIAL **IV ADMINISTRATION ONLY IV SCH ×3 (06:24→21:55)
[2021-09-20 06:28] LABS: CALCIUM LEVEL 6.5 MG/DL (8.8-10.2); CREATININE FOR GFR 1.52 MG/DL (0.55-1.30); GLOMERULAR FILTRATION RATE 34.9 (>32); POTASSIUM SERUM 5.7 MEQ/L (3.5-5.1)
[2021-09-20 06:38] LABS: HEMATOCRIT 32.9 % (36.0-47.0); HEMOGLOBIN 9.2 g/dl (12.0-15.5); MEAN CORPUSCULAR HEMOGLOBIN 27.2 pg (27.0-33.0); MEAN CORPUSCULAR VOLUME 97.3 fl (80.0-96.0); PLATELET COUNT, AUTOMATED 223 10^3/uL (150-450); RED BLOOD COUNT 3.38 10^6/uL (4.00-5.40); WHITE BLOOD COUNT 18.6 10^3/uL (4.0-10.0)
[2021-09-20 06:42] LABS: VENOUS BASE EXCESS 7.1 (-2.0-2.0); VENOUS HCO3 37.9 MEQ/L (23.0-27.0); VENOUS O2 SATURATION 97.8 % (60.0-80.0); VENOUS PARTIAL PRESSURE CO2 101.2 mmHg (38.0-50.0); VENOUS PARTIAL PRESSURE O2 119.2 mmHg (30.0-50.0); VENOUS PH 7.191 UNITS (7.330-7.430)
[2021-09-20] MEDS ORDERED: CALCIUM GLUCONATE 1,000 MG in D5W MINI-BAG PLUS 100 ML IV ONE (07:05)
[2021-09-20] MEDS: SUCRALFATE 1 GM TAB PO SCH ×4 (07:30→21:56)
[2021-09-20] MEDS: LACTOBACILLUS ACIDOPHILUS CAP (BACID) PO SCH ×2 (08:00→16:30)
[2021-09-20] MEDS: PRAVASTATIN 20 MG TAB PO SCH (08:32)
[2021-09-20] MEDS: PANTOPRAZOLE 40MG VIAL (C9113 PER 1) IV SCH ×2 (08:41→21:55)
[2021-09-20] MEDS: NYSTATIN 100,000 UNITS/GM TOPICAL PWD 15 GM TOP SCH ×2 (08:41→21:55)
[2021-09-20] MEDS: methylPREDNISolone 125MG 2ML VIAL IV SCH ×2 (08:41→21:56)
[2021-09-20] MEDS ORDERED: SOD POLYSTYRENE SULFONATE SUSP 15 GM/60 ML UD PO ONE (09:00)
[2021-09-20 12:02] LABS: ABG BASE EXCESS 7.9 (-2.0-2.0); ABG HCO3 37.1 MEQ/L (22.0-26.0); ABG O2 SATURATION 98.8 % (95.0-99.0); ABG PARTIAL PRESSURE O2 188.7 mmHg (75.0-100.0); ABG STANDARD HCO3 31.7 MEQ/L (22.0-26.0); ABG TOTAL CO2 39.7 MEQ/L (23.0-31.0)
[2021-09-20 12:07] LABS: ABG PARTIAL PRESSURE CO2 84.5 mmHg (35.0-45.0)
[2021-09-20] MEDS ORDERED: FUROSEMIDE 40MG/4ML VIAL (J1940) IV ONE (12:35)
[2021-09-21] VITALS (15 sets, daily range): BP systolic 94–117; BP diastolic 50–55; O2SAT 86–99
[2021-09-21] MEDS: OCTREOTIDE ACETATE 100MCG/ML VIAL **IV ADMINISTRATION ONLY IV SCH ×3 (05:44→21:36)
[2021-09-21] MEDS: SUCRALFATE 1 GM TAB PO SCH ×4 (08:45→21:35)
[2021-09-21] MEDS: LACTOBACILLUS ACIDOPHILUS CAP (BACID) PO SCH ×2 (08:47→16:18)
[2021-09-21] MEDS: methylPREDNISolone 125MG 2ML VIAL IV SCH (09:08)
[2021-09-21] MEDS: PRAVASTATIN 20 MG TAB PO SCH (09:08)
[2021-09-21] MEDS: PANTOPRAZOLE 40MG VIAL (C9113 PER 1) IV SCH ×2 (09:08→21:35)
[2021-09-21] MEDS: NYSTATIN 100,000 UNITS/GM TOPICAL PWD 15 GM TOP SCH ×2 (09:08→21:36)
[2021-09-21 14:53] LABS: HEMATOCRIT 29.1 % (36.0-47.0); HEMOGLOBIN 8.4 g/dl (12.0-15.5); MEAN CORPUSCULAR HEMOGLOBIN 27.3 pg (27.0-33.0); MEAN CORPUSCULAR HGB CONC 28.9 g/dl (32.0-36.5); MEAN CORPUSCULAR VOLUME 94.5 fl (80.0-96.0); PLATELET COUNT, AUTOMATED 213 10^3/uL (150-450); RED BLOOD COUNT 3.08 10^6/uL (4.00-5.40); WHITE BLOOD COUNT 21.8 10^3/uL (4.0-10.0)
[2021-09-21 15:21] LABS: CALCIUM LEVEL 7.9 MG/DL (8.8-10.2); CREATININE FOR GFR 2.67 MG/DL (0.55-1.30); GLOMERULAR FILTRATION RATE 18.2 (>32)
[2021-09-22] VITALS (12 sets, daily range): BP systolic 85–120; BP diastolic 49–69; O2SAT 90–100
[2021-09-22 05:56] LABS: HEMATOCRIT 28.1 % (36.0-47.0); HEMOGLOBIN 8.5 g/dl (12.0-15.5); MEAN CORPUSCULAR HEMOGLOBIN 27.9 pg (27.0-33.0); MEAN CORPUSCULAR HGB CONC 30.2 g/dl (32.0-36.5); MEAN CORPUSCULAR VOLUME 92.1 fl (80.0-96.0); PLATELET COUNT, AUTOMATED 187 10^3/uL (150-450); RED BLOOD COUNT 3.05 10^6/uL (4.00-5.40); WHITE BLOOD COUNT 21.8 10^3/uL (4.0-10.0)
[2021-09-22 06:29] LABS: CALCIUM LEVEL 7.9 MG/DL (8.8-10.2); CREATININE FOR GFR 2.73 MG/DL (0.55-1.30); GLOMERULAR FILTRATION RATE 17.8 (>32); MAGNESIUM LEVEL 2.5 MG/DL (1.8-2.4); POTASSIUM SERUM 4.3 MEQ/L (3.5-5.1)
[2021-09-22] MEDS: SUCRALFATE 1 GM TAB PO SCH ×4 (06:38→21:11)
[2021-09-22] MEDS: OCTREOTIDE ACETATE 100MCG/ML VIAL **IV ADMINISTRATION ONLY IV SCH ×3 (06:38→21:10)
[2021-09-22] MEDS: LACTOBACILLUS ACIDOPHILUS CAP (BACID) PO SCH ×2 (08:58→17:38)
[2021-09-22] MEDS: PRAVASTATIN 20 MG TAB PO SCH (08:59)
[2021-09-22] MEDS: methylPREDNISolone 125MG 2ML VIAL IV SCH (09:01)
[2021-09-22] MEDS: PANTOPRAZOLE 40MG VIAL (C9113 PER 1) IV SCH ×2 (09:02→21:10)
[2021-09-22] MEDS: NYSTATIN 100,000 UNITS/GM TOPICAL PWD 15 GM TOP SCH ×2 (09:03→21:10)
[2021-09-22] MEDS: ACETAMINOPHEN 500 MG TAB PO PRN (18:17)
[2021-09-22] MEDS: ONDANSETRON 4MG/2ML VIAL IV PRN (18:43)
[2021-09-22 19:28] LABS: HEMATOCRIT 23.6 % (36.0-47.0); HEMOGLOBIN 7.2 g/dl (12.0-15.5)
[2021-09-23] VITALS (24 sets, daily range): BP systolic 104–133; BP diastolic 53–72; O2SAT 93–99
[2021-09-23 02:01] LABS: HEMATOCRIT 27.5 % (36.0-47.0); HEMOGLOBIN 8.1 g/dl (12.0-15.5); MEAN CORPUSCULAR HEMOGLOBIN 27.6 pg (27.0-33.0); MEAN CORPUSCULAR HGB CONC 29.5 g/dl (32.0-36.5); MEAN CORPUSCULAR VOLUME 93.9 fl (80.0-96.0); PLATELET COUNT, AUTOMATED 192 10^3/uL (150-450); RED BLOOD COUNT 2.93 10^6/uL (4.00-5.40); WHITE BLOOD COUNT 19.9 10^3/uL (4.0-10.0)
[2021-09-23 02:25] LABS: CALCIUM LEVEL 7.8 MG/DL (8.8-10.2); CREATININE FOR GFR 3.08 MG/DL (0.55-1.30); GLOMERULAR FILTRATION RATE 15.5 (>32); MAGNESIUM LEVEL 2.5 MG/DL (1.8-2.4); POTASSIUM SERUM 4.1 MEQ/L (3.5-5.1)
[2021-09-23] MEDS: OCTREOTIDE ACETATE 100MCG/ML VIAL **IV ADMINISTRATION ONLY IV SCH ×3 (05:01→21:00)
[2021-09-23 06:23] LABS: HEMATOCRIT 27.1 % (36.0-47.0); HEMOGLOBIN 7.9 g/dl (12.0-15.5)
[2021-09-23 06:53] LABS: CALCIUM LEVEL 7.8 MG/DL (8.8-10.2); CREATININE FOR GFR 3.22 MG/DL (0.55-1.30); GLOMERULAR FILTRATION RATE 14.7 (>32); POTASSIUM SERUM 4.1 MEQ/L (3.5-5.1)
[2021-09-23] MEDS: PANTOPRAZOLE 40MG VIAL (C9113 PER 1) IV SCH ×2 (08:39→20:22)
[2021-09-23] MEDS: PRAVASTATIN 20 MG TAB PO SCH (08:40)
[2021-09-23] MEDS: methylPREDNISolone 125MG 2ML VIAL IV SCH (08:40)
[2021-09-23] MEDS: SUCRALFATE 1 GM TAB PO SCH ×4 (08:40→20:23)
[2021-09-23] MEDS: LACTOBACILLUS ACIDOPHILUS CAP (BACID) PO SCH ×2 (08:40→17:52)
[2021-09-23] MEDS: NYSTATIN 100,000 UNITS/GM TOPICAL PWD 15 GM TOP SCH ×2 (08:41→20:23)
[2021-09-23] MEDS: ACETAMINOPHEN 500 MG TAB PO PRN (12:42)
[2021-09-23] MEDS ORDERED: NS 500 ML IV SCH (12:45)
[2021-09-23 17:30] LABS: HEMOGLOBIN 8.1 g/dl (12.0-15.5)
[2021-09-23] MEDS: ONDANSETRON 4MG/2ML VIAL IV PRN (23:15)
[2021-09-24] VITALS (23 sets, daily range): BP systolic 94–134; BP diastolic 48–68; O2SAT 91–99
[2021-09-24] MEDS: OCTREOTIDE ACETATE 100MCG/ML VIAL **IV ADMINISTRATION ONLY IV SCH ×3 (05:00→21:09)
[2021-09-24 05:06] LABS: HEMATOCRIT 26.1 % (36.0-47.0); HEMOGLOBIN 7.8 g/dl (12.0-15.5); MEAN CORPUSCULAR HEMOGLOBIN 28.3 pg (27.0-33.0); MEAN CORPUSCULAR HGB CONC 29.9 g/dl (32.0-36.5); MEAN CORPUSCULAR VOLUME 94.6 fl (80.0-96.0); PLATELET COUNT, AUTOMATED 167 10^3/uL (150-450); RED BLOOD COUNT 2.76 10^6/uL (4.00-5.40); WHITE BLOOD COUNT 26.5 10^3/uL (4.0-10.0)
[2021-09-24 05:29] LABS: CALCIUM LEVEL 7.6 MG/DL (8.8-10.2); CREATININE FOR GFR 3.31 MG/DL (0.55-1.30); GLOMERULAR FILTRATION RATE 14.2 (>32); MAGNESIUM LEVEL 2.6 MG/DL (1.8-2.4); POTASSIUM SERUM 4.4 MEQ/L (3.5-5.1)
[2021-09-24] MEDS: ONDANSETRON 4MG/2ML VIAL IV PRN ×2 (06:47→22:21)
[2021-09-24] MEDS: PANTOPRAZOLE 40MG VIAL (C9113 PER 1) IV SCH ×2 (08:47→20:31)
[2021-09-24] MEDS: methylPREDNISolone 125MG 2ML VIAL IV SCH (08:50)
[2021-09-24] MEDS: PRAVASTATIN 20 MG TAB PO SCH (08:50)
[2021-09-24] MEDS: SUCRALFATE 1 GM TAB PO SCH ×4 (08:51→20:32)
[2021-09-24] MEDS: LACTOBACILLUS ACIDOPHILUS CAP (BACID) PO SCH ×2 (08:51→18:00)
[2021-09-24] MEDS: NYSTATIN 100,000 UNITS/GM TOPICAL PWD 15 GM TOP SCH ×2 (09:00→20:31)
[2021-09-24] MEDS ORDERED: LIDOCAINE 1% MDV 20ML VIAL As Ordered ONE (14:47)
[2021-09-24 21:07] LABS: ANTI DS-DNA AB Negative (Negative); ANTI JO-1 ANTIBODIES <20 Units (<20); ANTI SCLERODERMA ANTIBODIES <0.2 AI (0.0-0.9); ANTI SMITH(Sm) AB <20 Units (<20); ANTI-U1 RNP AB <20 Units (<20); ANTINUCLEAR ANTIBODIES DIRECT Negative (Negative); ASPERGILLUS FUMIGATUS AB Negative (Negative); AUREOBASIDIUM PULLULANS Negative (Negative); BLASTOMYCES ANTIBODY LEVEL Negative (Neg:<1:1); CRYPTOCOCCUS ANTIBODY SERUM Negative (Neg:<1:2); MICROPOLYSPORA FAENI AB Negative (Negative); PIGEON SERUM AB Negative (Negative); THERMOACTINOMYCES SACCHARI Negative (Negative); THERMOACTINOMYCES VULGARIS Negative (Negative)
[2021-09-24 22:36] LABS: APPEARANCE, URINE CLEAR (CLEAR); BACTERIA, URINE AUTO NEGATIVE (NEGATIVE); BILIRUBIN, URINE AUTO NEGATIVE (NEGATIVE); BLOOD, URINE BLOOD 3+ (NEGATIVE); COLOR, URINE YELLOW (YELLOW); GLUCOSE, URINE (UA) AUTO NEGATIVE (NEGATIVE); KETONE, URINE AUTO NEGATIVE (NEGATIVE); LEUKOCYTE ESTERASE, URINE AUTO NEGATIVE (NEGATIVE); NITRITE, URINE AUTO NEGATIVE (NEGATIVE); PROTEIN, URINE AUTO NEGATIVE (NEGATIVE); RBC, URINE AUTO TNTC /HPF (0-3); SPECIFIC GRAVITY URINE AUTO 1.016 (1.002-1.035); SQUAMOUS EPITHELIAL CELL UR AU 0 /HPF (0-6); UROBILINOGEN, URINE AUTO 0.2 mg/dL (0.0-2.0); WBC, URINE AUTO 5 /HPF (0-3)
[2021-09-25] VITALS (12 sets, daily range): BP systolic 109–123; BP diastolic 52–58; O2SAT 89–97
[2021-09-25] MEDS: OCTREOTIDE ACETATE 100MCG/ML VIAL **IV ADMINISTRATION ONLY IV SCH (05:03)
[2021-09-25] MEDS: SODIUM CHLORIDE 0.9% INJ 10 ML SYR IV SCH ×2 (05:04→18:06)
[2021-09-25 05:31] LABS: HEMATOCRIT 28.9 % (36.0-47.0); MEAN CORPUSCULAR HEMOGLOBIN 27.8 pg (27.0-33.0); MEAN CORPUSCULAR HGB CONC 31.1 g/dl (32.0-36.5); MEAN CORPUSCULAR VOLUME 89.2 fl (80.0-96.0); PLATELET COUNT, AUTOMATED 147 10^3/uL (150-450); RED BLOOD COUNT 3.24 10^6/uL (4.00-5.40); WHITE BLOOD COUNT 21.8 10^3/uL (4.0-10.0)
[2021-09-25 06:00] LABS: CALCIUM LEVEL 7.7 MG/DL (8.8-10.2); CREATININE FOR GFR 3.23 MG/DL (0.55-1.30); GLOMERULAR FILTRATION RATE 14.6 (>32); MAGNESIUM LEVEL 2.6 MG/DL (1.8-2.4); POTASSIUM SERUM 4.5 MEQ/L (3.5-5.1)
[2021-09-25] MEDS: PANTOPRAZOLE 40MG VIAL (C9113 PER 1) IV SCH ×2 (09:36→20:06)
[2021-09-25] MEDS: LACTOBACILLUS ACIDOPHILUS CAP (BACID) PO SCH ×2 (09:36→18:05)
[2021-09-25] MEDS: PRAVASTATIN 20 MG TAB PO SCH (09:37)
[2021-09-25] MEDS: predniSONE 10 MG TAB PO SCH (09:39)
[2021-09-25] MEDS: SUCRALFATE 1 GM TAB PO SCH ×4 (09:40→20:08)
[2021-09-25] MEDS: NYSTATIN 100,000 UNITS/GM TOPICAL PWD 15 GM TOP SCH ×2 (09:41→20:08)
[2021-09-25 13:44] LABS: ABG O2 SATURATION 94.7 % (95.0-99.0); ABG PARTIAL PRESSURE O2 80.1 mmHg (75.0-100.0); ABG STANDARD HCO3 30.8 MEQ/L (22.0-26.0); ABG TOTAL CO2 37.1 MEQ/L (23.0-31.0); ABG pH (ARTERIAL) 7.309 UNITS (7.350-7.450)
[2021-09-25 13:49] LABS: ABG PARTIAL PRESSURE CO2 71.2 mmHg (35.0-45.0)
[2021-09-26] VITALS (10 sets, daily range): BP systolic 95–117; BP diastolic 44–55; O2SAT 93–95
[2021-09-26] MEDS: SODIUM CHLORIDE 0.9% INJ 10 ML SYR IV SCH ×2 (05:17→18:38)
[2021-09-26] MEDS: ONDANSETRON 4MG/2ML VIAL IV PRN (05:21)
[2021-09-26] MEDS: LACTOBACILLUS ACIDOPHILUS CAP (BACID) PO SCH ×2 (08:32→16:32)
[2021-09-26] MEDS: PRAVASTATIN 20 MG TAB PO SCH (08:32)
[2021-09-26] MEDS: PANTOPRAZOLE 40MG VIAL (C9113 PER 1) IV SCH ×2 (08:33→20:32)
[2021-09-26] MEDS: predniSONE 10 MG TAB PO SCH (08:33)
[2021-09-26] MEDS: NYSTATIN 100,000 UNITS/GM TOPICAL PWD 15 GM TOP SCH ×2 (08:33→20:33)
[2021-09-26] MEDS: SUCRALFATE 1 GM TAB PO SCH ×4 (08:33→20:34)
[2021-09-26 08:57] LABS: HEMATOCRIT 27.6 % (36.0-47.0); HEMOGLOBIN 8.5 g/dl (12.0-15.5); MEAN CORPUSCULAR HEMOGLOBIN 28.1 pg (27.0-33.0); MEAN CORPUSCULAR HGB CONC 30.8 g/dl (32.0-36.5); MEAN CORPUSCULAR VOLUME 91.1 fl (80.0-96.0); PLATELET COUNT, AUTOMATED 131 10^3/uL (150-450); RED BLOOD COUNT 3.03 10^6/uL (4.00-5.40); WHITE BLOOD COUNT 17.3 10^3/uL (4.0-10.0)
[2021-09-26 09:25] LABS: CALCIUM LEVEL 7.9 MG/DL (8.8-10.2); CREATININE FOR GFR 2.62 MG/DL (0.55-1.30); GLOMERULAR FILTRATION RATE 18.6 (>32); MAGNESIUM LEVEL 2.6 MG/DL (1.8-2.4); POTASSIUM SERUM 4.7 MEQ/L (3.5-5.1)
[2021-09-26 21:06] LABS: ABG O2 SATURATION 98.1 % (95.0-99.0)
[2021-09-26 21:08] LABS: ABG BASE EXCESS 6.7 (-2.0-2.0); ABG HCO3 33.2 MEQ/L (22.0-26.0); ABG PARTIAL PRESSURE CO2 59.3 mmHg (35.0-45.0); ABG PARTIAL PRESSURE O2 123.4 mmHg (75.0-100.0); ABG STANDARD HCO3 30.6 MEQ/L (22.0-26.0); ABG pH (ARTERIAL) 7.366 UNITS (7.350-7.450)
[2021-09-27] VITALS (17 sets, daily range): BP systolic 91–114; BP diastolic 42–64; O2SAT 87–98
[2021-09-27] MEDS: SODIUM CHLORIDE 0.9% INJ 10 ML SYR IV SCH ×2 (05:41→17:55)
[2021-09-27] MEDS: NYSTATIN 100,000 UNITS/GM TOPICAL PWD 15 GM TOP SCH ×2 (08:05→20:00)
[2021-09-27] MEDS: PRAVASTATIN 20 MG TAB PO SCH (08:05)
[2021-09-27] MEDS: PANTOPRAZOLE 40MG VIAL (C9113 PER 1) IV SCH ×2 (08:05→20:01)
[2021-09-27] MEDS: LACTOBACILLUS ACIDOPHILUS CAP (BACID) PO SCH ×2 (08:08→17:54)
[2021-09-27] MEDS: SUCRALFATE 1 GM TAB PO SCH ×4 (08:10→20:01)
[2021-09-27] MEDS: predniSONE 10 MG TAB PO SCH (08:11)
[2021-09-27 08:29] LABS: HEMATOCRIT 25.5 % (36.0-47.0); HEMOGLOBIN 7.9 g/dl (12.0-15.5); MEAN CORPUSCULAR HEMOGLOBIN 27.9 pg (27.0-33.0); MEAN CORPUSCULAR VOLUME 90.1 fl (80.0-96.0); PLATELET COUNT, AUTOMATED 120 10^3/uL (150-450); RED BLOOD COUNT 2.83 10^6/uL (4.00-5.40); WHITE BLOOD COUNT 19.5 10^3/uL (4.0-10.0)
[2021-09-27 08:50] LABS: CALCIUM LEVEL 8.2 MG/DL (8.8-10.2); CREATININE FOR GFR 1.96 MG/DL (0.55-1.30); GLOMERULAR FILTRATION RATE 26.1 (>32); POTASSIUM SERUM 4.8 MEQ/L (3.5-5.1)
[2021-09-27] MEDS: FUROSEMIDE 100MG/10ML VIAL (J1940) IV SCH ×2 (12:00→16:31)
[2021-09-27 12:51] LABS: ABG BASE EXCESS 13.2 (-2.0-2.0); ABG HCO3 40.1 MEQ/L (22.0-26.0); ABG O2 SATURATION 93.4 % (95.0-99.0); ABG PARTIAL PRESSURE O2 68.8 mmHg (75.0-100.0); ABG STANDARD HCO3 36.9 MEQ/L (22.0-26.0); ABG TOTAL CO2 42.2 MEQ/L (23.0-31.0); ABG pH (ARTERIAL) 7.388 UNITS (7.350-7.450)
[2021-09-27 12:55] LABS: ABG PARTIAL PRESSURE CO2 68.1 mmHg (35.0-45.0)
[2021-09-27 12:56] LABS: BILIRUBIN, URINE MANUAL NEGATIVE (NEGATIVE); GLUCOSE, URINE (UA) MANUAL NEGATIVE (NEGATIVE); KETONE, URINE MANUAL NEGATIVE (NEGATIVE); UROBILINOGEN, URINE MANUAL NORMAL (NORMAL)
[2021-09-27 13:02] LABS: BACTERIA, URINE LARGE AMOUNT; RBC, URINE 40-50 /hpf (0-3)
[2021-09-27 13:05] LABS: GRANULAR CAST, URINE 0-1 /lpf; RENAL EPITHELIAL CELLS, URINE SMALL AMOUNT /hpf; SQUAMOUS EPITHELIAL CELL URINE SMALL AMOUNT /hpf (SMALL AMT)
[2021-09-27 13:07] LABS: AMORPHOUS SEDIMENT, URINE SMALL AMOUNT (NEGATIVE)
[2021-09-27] MEDS: ACETAMINOPHEN 500 MG TAB PO PRN (19:53)
[2021-09-27 19:54] LABS: HEMATOCRIT 24.7 % (36.0-47.0); HEMOGLOBIN 7.6 g/dl (12.0-15.5); MEAN CORPUSCULAR HEMOGLOBIN 27.7 pg (27.0-33.0); MEAN CORPUSCULAR HGB CONC 30.8 g/dl (32.0-36.5); MEAN CORPUSCULAR VOLUME 90.1 fl (80.0-96.0); PLATELET COUNT, AUTOMATED 109 10^3/uL (150-450); RED BLOOD COUNT 2.74 10^6/uL (4.00-5.40); WHITE BLOOD COUNT 20.8 10^3/uL (4.0-10.0)
[2021-09-28] VITALS (24 sets, daily range): BP systolic 92–122; BP diastolic 46–58; O2SAT 88–96
[2021-09-28] MEDS: SODIUM CHLORIDE 0.9% INJ 10 ML SYR IV SCH ×2 (06:19→17:46)
[2021-09-28 06:20] LABS: HEMATOCRIT 25.1 % (36.0-47.0); HEMOGLOBIN 7.8 g/dl (12.0-15.5); MEAN CORPUSCULAR HGB CONC 31.1 g/dl (32.0-36.5); PLATELET COUNT, AUTOMATED 115 10^3/uL (150-450); RED BLOOD COUNT 2.79 10^6/uL (4.00-5.40); WHITE BLOOD COUNT 21.2 10^3/uL (4.0-10.0)
[2021-09-28 06:51] LABS: CALCIUM LEVEL 8.6 MG/DL (8.8-10.2); CREATININE FOR GFR 1.47 MG/DL (0.55-1.30); GLOMERULAR FILTRATION RATE 36.3 (>32); POTASSIUM SERUM 4.5 MEQ/L (3.5-5.1)
[2021-09-28] MEDS: SUCRALFATE 1 GM TAB PO SCH ×4 (07:30→20:28)
[2021-09-28] MEDS: FUROSEMIDE 100MG/10ML VIAL (J1940) IV SCH ×2 (09:00→17:45)
[2021-09-28] MEDS: PRAVASTATIN 20 MG TAB PO SCH (09:48)
[2021-09-28] MEDS: LACTOBACILLUS ACIDOPHILUS CAP (BACID) PO SCH ×2 (09:48→17:45)
[2021-09-28] MEDS: PANTOPRAZOLE 40MG VIAL (C9113 PER 1) IV SCH ×2 (09:48→20:27)
[2021-09-28] MEDS: NYSTATIN 100,000 UNITS/GM TOPICAL PWD 15 GM TOP SCH ×2 (09:48→20:28)
[2021-09-28] MEDS: predniSONE 10 MG TAB PO SCH (09:49)
[2021-09-29] VITALS (15 sets, daily range): BP systolic 99–136; BP diastolic 50–63; O2SAT 91–94
[2021-09-29] MEDS: SODIUM CHLORIDE 0.9% INJ 10 ML SYR IV SCH ×2 (05:28→18:12)
[2021-09-29 05:44] LABS: HEMATOCRIT 23.1 % (36.0-47.0); HEMOGLOBIN 7.1 g/dl (12.0-15.5); MEAN CORPUSCULAR HGB CONC 30.7 g/dl (32.0-36.5); MEAN CORPUSCULAR VOLUME 90.9 fl (80.0-96.0); PLATELET COUNT, AUTOMATED 108 10^3/uL (150-450); RED BLOOD COUNT 2.54 10^6/uL (4.00-5.40); WHITE BLOOD COUNT 19.4 10^3/uL (4.0-10.0)
[2021-09-29 06:18] LABS: CALCIUM LEVEL 8.2 MG/DL (8.8-10.2); CREATININE FOR GFR 1.12 MG/DL (0.55-1.30); GLOMERULAR FILTRATION RATE 49.7 (>32); POTASSIUM SERUM 4.1 MEQ/L (3.5-5.1)
[2021-09-29] MEDS: SUCRALFATE 1 GM TAB PO SCH ×4 (08:09→20:02)
[2021-09-29] MEDS: LACTOBACILLUS ACIDOPHILUS CAP (BACID) PO SCH ×2 (08:09→18:11)
[2021-09-29] MEDS: FUROSEMIDE 100MG/10ML VIAL (J1940) IV SCH ×2 (09:00→15:02)
[2021-09-29 09:09] LABS: PERCENT SATURATION 13.7 % (13.2-45.0)
[2021-09-29 09:52] LABS: INR 1.23; PROTHROMBIN TIME 15.9 SECONDS (12.7-14.5)
[2021-09-29 09:53] LABS: PARTIAL THROMBOPLASTIN TIME 40.6 SECONDS (25.9-37.0)
[2021-09-29] MEDS: PRAVASTATIN 20 MG TAB PO SCH (10:26)
[2021-09-29] MEDS: predniSONE 10 MG TAB PO SCH (10:27)
[2021-09-29] MEDS: PANTOPRAZOLE 40MG TAB (PROTONIX) PO SCH ×2 (10:28→20:02)
[2021-09-29] MEDS: NYSTATIN 100,000 UNITS/GM TOPICAL PWD 15 GM TOP SCH ×2 (10:28→20:02)
[2021-09-29 16:16] LABS: MEAN CORPUSCULAR HEMOGLOBIN 27.9 pg (27.0-33.0); MEAN CORPUSCULAR VOLUME 89.8 fl (80.0-96.0); PLATELET COUNT, AUTOMATED 101 10^3/uL (150-450); RED BLOOD COUNT 3.23 10^6/uL (4.00-5.40); WHITE BLOOD COUNT 19.9 10^3/uL (4.0-10.0)
[2021-09-30] VITALS (7 sets, daily range): BP systolic 99–114; BP diastolic 37–62
[2021-09-30] MEDS: SODIUM CHLORIDE 0.9% INJ 10 ML SYR IV SCH ×2 (04:42→17:20)
[2021-09-30 04:57] LABS: HEMATOCRIT 28.6 % (36.0-47.0); HEMOGLOBIN 8.8 g/dl (12.0-15.5); MEAN CORPUSCULAR HEMOGLOBIN 27.9 pg (27.0-33.0); MEAN CORPUSCULAR HGB CONC 30.8 g/dl (32.0-36.5); MEAN CORPUSCULAR VOLUME 90.8 fl (80.0-96.0); RED BLOOD COUNT 3.15 10^6/uL (4.00-5.40); WHITE BLOOD COUNT 20.1 10^3/uL (4.0-10.0)
[2021-09-30 05:23] LABS: CALCIUM LEVEL 8.2 MG/DL (8.8-10.2); CREATININE FOR GFR 0.97 MG/DL (0.55-1.30); GLOMERULAR FILTRATION RATE 58.7 (>32); POTASSIUM SERUM 3.7 MEQ/L (3.5-5.1)
[2021-09-30 05:44] LABS: PLATELET COUNT, AUTOMATED 98 10^3/uL (150-450)
[2021-09-30] MEDS ORDERED: MIDODRINE 5 MG TAB PO SCH (08:00)
[2021-09-30] MEDS: SUCRALFATE 1 GM TAB PO SCH ×4 (08:45→20:29)
[2021-09-30] MEDS: predniSONE 10 MG TAB PO SCH (08:45)
[2021-09-30] MEDS: PRAVASTATIN 20 MG TAB PO SCH (08:45)
[2021-09-30] MEDS: LACTOBACILLUS ACIDOPHILUS CAP (BACID) PO SCH ×2 (08:45→17:19)
[2021-09-30] MEDS: NYSTATIN 100,000 UNITS/GM TOPICAL PWD 15 GM TOP SCH ×2 (08:46→20:28)
[2021-09-30] MEDS: PANTOPRAZOLE 40MG TAB (PROTONIX) PO SCH ×2 (08:46→20:29)
[2021-09-30] MEDS: FUROSEMIDE 100MG/10ML VIAL (J1940) IV SCH (08:46)
[2021-09-30 12:47] LABS: C REACTIVE PROTEIN QUANTITATIV 5.68 MG/DL (0.00-0.30)
[2021-09-30 13:19] LABS: ERYTHROCYTE SEDIMENTATION RATE 61 mm/hr (0-30)
[2021-10-01] MEDS: SODIUM CHLORIDE 0.9% INJ 10 ML SYR IV SCH ×2 (05:58→17:41)
[2021-10-01 06:00] VITALS: BP 116/55
[2021-10-01 06:19] LABS: HEMATOCRIT 27.6 % (36.0-47.0); HEMOGLOBIN 8.4 g/dl (12.0-15.5); MEAN CORPUSCULAR HEMOGLOBIN 27.7 pg (27.0-33.0); MEAN CORPUSCULAR HGB CONC 30.4 g/dl (32.0-36.5); MEAN CORPUSCULAR VOLUME 91.1 fl (80.0-96.0); RED BLOOD COUNT 3.03 10^6/uL (4.00-5.40); WHITE BLOOD COUNT 15.2 10^3/uL (4.0-10.0)
[2021-10-01 06:24] LABS: PLATELET COUNT, AUTOMATED 97 10^3/uL (150-450)
[2021-10-01 06:51] LABS: BLOOD UREA NITROGEN 64 MG/DL (7-18); CALCIUM LEVEL 8.1 MG/DL (8.8-10.2); CARBON DIOXIDE LEVEL 44 MEQ/L (21-32); CHLORIDE LEVEL 101 MEQ/L (98-107); CREATININE FOR GFR 0.85 MG/DL (0.55-1.30); GLOMERULAR FILTRATION RATE > 60.0 (>32); GLUCOSE, FASTING 117 MG/DL (70-100); POTASSIUM SERUM 3.7 MEQ/L (3.5-5.1); SODIUM LEVEL 148 MEQ/L (136-145)
[2021-10-01] MEDS: SUCRALFATE 1 GM TAB PO SCH ×4 (07:30→20:40)
[2021-10-01 08:00] VITALS: BP 107/59
[2021-10-01] MEDS: PRAVASTATIN 20 MG TAB PO SCH (08:36)
[2021-10-01] MEDS: PANTOPRAZOLE 40MG TAB (PROTONIX) PO SCH ×2 (08:36→20:40)
[2021-10-01] MEDS: LACTOBACILLUS ACIDOPHILUS CAP (BACID) PO SCH ×2 (08:36→16:53)
[2021-10-01] MEDS: predniSONE 10 MG TAB PO SCH (08:36)
[2021-10-01] MEDS: NYSTATIN 100,000 UNITS/GM TOPICAL PWD 15 GM TOP SCH ×2 (08:37→20:40)
[2021-10-01 12:00] VITALS: BP 114/59
[2021-10-02 01:04] VITALS: BP 145/61
[2021-10-02 04:00] VITALS: BP 127/48
[2021-10-02] MEDS: SODIUM CHLORIDE 0.9% INJ 10 ML SYR IV SCH ×2 (05:49→17:18)
[2021-10-02 05:56] LABS: HEMATOCRIT 29.2 % (36.0-47.0); HEMOGLOBIN 8.8 g/dl (12.0-15.5); MEAN CORPUSCULAR HEMOGLOBIN 27.8 pg (27.0-33.0); MEAN CORPUSCULAR HGB CONC 30.1 g/dl (32.0-36.5); MEAN CORPUSCULAR VOLUME 92.4 fl (80.0-96.0); PLATELET COUNT, AUTOMATED 100 10^3/uL (150-450); RED BLOOD COUNT 3.16 10^6/uL (4.00-5.40); WHITE BLOOD COUNT 13.7 10^3/uL (4.0-10.0)
[2021-10-02 06:28] LABS: BLOOD UREA NITROGEN 52 MG/DL (7-18); CALCIUM LEVEL 8.4 MG/DL (8.8-10.2); CARBON DIOXIDE LEVEL 44 MEQ/L (21-32); CHLORIDE LEVEL 104 MEQ/L (98-107); CREATININE FOR GFR 0.75 MG/DL (0.55-1.30); GLOMERULAR FILTRATION RATE > 60.0 (>32); GLUCOSE, FASTING 96 MG/DL (70-100); POTASSIUM SERUM 3.4 MEQ/L (3.5-5.1); SODIUM LEVEL 148 MEQ/L (136-145)
[2021-10-02] MEDS ORDERED: POTASSIUM CHLORIDE 10MEQ SR TABLET PO ONE (07:20)
[2021-10-02] MEDS: SUCRALFATE 1 GM TAB PO SCH ×4 (07:30→21:13)
[2021-10-02 07:35] VITALS: BP 114/50
[2021-10-02] MEDS: LACTOBACILLUS ACIDOPHILUS CAP (BACID) PO SCH ×2 (09:59→17:16)
[2021-10-02] MEDS: PRAVASTATIN 20 MG TAB PO SCH (10:00)
[2021-10-02] MEDS: predniSONE 10 MG TAB PO SCH (10:01)
[2021-10-02] MEDS: NYSTATIN 100,000 UNITS/GM TOPICAL PWD 15 GM TOP SCH ×2 (10:03→21:12)
[2021-10-02] MEDS: PANTOPRAZOLE 40MG TAB (PROTONIX) PO SCH ×2 (10:05→21:13)
[2021-10-02 12:27] VITALS: BP 124/58
[2021-10-02 20:00] VITALS: BP 114/50
[2021-10-03 04:00] VITALS: BP 117/58
[2021-10-03] MEDS: SODIUM CHLORIDE 0.9% INJ 10 ML SYR IV PRN ×2 (05:39→20:09)
[2021-10-03] MEDS: SODIUM CHLORIDE 0.9% INJ 10 ML SYR IV SCH ×2 (05:39→17:57)
[2021-10-03 06:02] LABS: HEMATOCRIT 27.4 % (36.0-47.0); MEAN CORPUSCULAR HEMOGLOBIN 27.9 pg (27.0-33.0); MEAN CORPUSCULAR HGB CONC 29.2 g/dl (32.0-36.5); MEAN CORPUSCULAR VOLUME 95.5 fl (80.0-96.0); RED BLOOD COUNT 2.87 10^6/uL (4.00-5.40); WHITE BLOOD COUNT 10.8 10^3/uL (4.0-10.0)
[2021-10-03 06:06] LABS: PLATELET COUNT, AUTOMATED 80 10^3/uL (150-450)
[2021-10-03 06:36] LABS: BLOOD UREA NITROGEN 40 MG/DL (7-18); CALCIUM LEVEL 8.3 MG/DL (8.8-10.2); CARBON DIOXIDE LEVEL 48 MEQ/L (21-32); CHLORIDE LEVEL 107 MEQ/L (98-107); CREATININE FOR GFR 0.63 MG/DL (0.55-1.30); GLOMERULAR FILTRATION RATE > 60.0 (>32); GLUCOSE, FASTING 103 MG/DL (70-100); POTASSIUM SERUM 3.6 MEQ/L (3.5-5.1); SODIUM LEVEL 151 MEQ/L (136-145)
[2021-10-03] MEDS ORDERED: D5W 1,000 ML IV SCH (07:20)
[2021-10-03] MEDS: SUCRALFATE 1 GM TAB PO SCH ×4 (07:30→20:08)
[2021-10-03 08:20] VITALS: BP 110/52
[2021-10-03] MEDS: NYSTATIN 100,000 UNITS/GM TOPICAL PWD 15 GM TOP SCH ×2 (08:35→20:08)
[2021-10-03] MEDS: PRAVASTATIN 20 MG TAB PO SCH (08:36)
[2021-10-03] MEDS: PANTOPRAZOLE 40MG TAB (PROTONIX) PO SCH ×2 (08:36→20:08)
[2021-10-03] MEDS: LACTOBACILLUS ACIDOPHILUS CAP (BACID) PO SCH ×2 (08:36→17:57)
[2021-10-03] MEDS: predniSONE 10 MG TAB PO SCH (08:36)
[2021-10-03 09:25] VITALS: BP 120/56
[2021-10-03 14:00] VITALS: BP 113/54
[2021-10-03 20:45] LABS: BLOOD UREA NITROGEN 38 MG/DL (7-18); CARBON DIOXIDE LEVEL 43 MEQ/L (21-32); CHLORIDE LEVEL 105 MEQ/L (98-107); CREATININE FOR GFR 0.77 MG/DL (0.55-1.30); GLOMERULAR FILTRATION RATE > 60.0 (>32); GLUCOSE, FASTING 196 MG/DL (70-100); POTASSIUM SERUM 3.9 MEQ/L (3.5-5.1); SODIUM LEVEL 148 MEQ/L (136-145)
[2021-10-03] MEDS: HumaLOG INSULIN (NovoLOG) PER UNIT SC SCH (21:00)
[2021-10-03 22:00] VITALS: BP 108/46
[2021-10-04] VITALS (8 sets, daily range): BP systolic 96–126; BP diastolic 44–57
[2021-10-04] MEDS ORDERED: GLUCOSE 4GM CHEW TABLET PO PRN (00:10)
[2021-10-04] MEDS ORDERED: DEXTROSE 50% 50 ML SYRINGE IV PRN (00:10)
[2021-10-04] MEDS ORDERED: GLUCAGON INJ 1MG VIAL SC PRN (00:10)
[2021-10-04] MEDS: SODIUM CHLORIDE 0.9% INJ 10 ML SYR IV SCH ×2 (05:12→19:18)
[2021-10-04 05:29] LABS: BASO % 0.1 % (0.0-1.0); EOS # 0.1 10^3/uL (0.0-0.5); EOS % 1.1 % (0.0-3.0); HEMATOCRIT 27.9 % (36.0-47.0); HEMOGLOBIN 7.7 g/dl (12.0-15.5); LYMPH # 0.3 10^3/uL (1.5-5.0); LYMPH % 2.7 % (24.0-44.0); MEAN CORPUSCULAR HEMOGLOBIN 27.7 pg (27.0-33.0); MEAN CORPUSCULAR HGB CONC 27.6 g/dl (32.0-36.5); MEAN CORPUSCULAR VOLUME 100.4 fl (80.0-96.0); MONO # 0.3 10^3/uL (0.0-0.8); MONO % 2.2 % (2.0-8.0); NEUTROPHILS # 11.6 10^3/uL (1.5-8.5); NEUTROPHILS % 93.3 % (36.0-66.0); RED BLOOD COUNT 2.78 10^6/uL (4.00-5.40); WHITE BLOOD COUNT 12.4 10^3/uL (4.0-10.0)
[2021-10-04 05:32] LABS: PLATELET COUNT, AUTOMATED 77 10^3/uL (150-450)
[2021-10-04] MEDS ORDERED: MIDODRINE 5 MG TAB PO ONE (05:40)
[2021-10-04 05:52] LABS: BLOOD UREA NITROGEN 37 MG/DL (7-18); CALCIUM LEVEL 7.9 MG/DL (8.8-10.2); CARBON DIOXIDE LEVEL 44 MEQ/L (21-32); CHLORIDE LEVEL 105 MEQ/L (98-107); CREATININE FOR GFR 0.71 MG/DL (0.55-1.30); GLOMERULAR FILTRATION RATE > 60.0 (>32); GLUCOSE, FASTING 135 MG/DL (70-100); POTASSIUM SERUM 3.8 MEQ/L (3.5-5.1); SODIUM LEVEL 147 MEQ/L (136-145)
[2021-10-04] MEDS: HumaLOG INSULIN (NovoLOG) PER UNIT SC SCH ×4 (09:21→20:53)
[2021-10-04] MEDS: SUCRALFATE 1 GM TAB PO SCH ×4 (09:21→20:58)
[2021-10-04] MEDS: NYSTATIN 100,000 UNITS/GM TOPICAL PWD 15 GM TOP SCH ×2 (09:22→20:58)
[2021-10-04] MEDS: PANTOPRAZOLE 40MG TAB (PROTONIX) PO SCH ×2 (09:22→20:58)
[2021-10-04] MEDS: predniSONE 10 MG TAB PO SCH (09:22)
[2021-10-04] MEDS: PRAVASTATIN 20 MG TAB PO SCH (09:22)
[2021-10-04] MEDS: LACTOBACILLUS ACIDOPHILUS CAP (BACID) PO SCH ×2 (09:22→18:19)
[2021-10-04] MEDS: MIDODRINE 5 MG TAB PO SCH ×2 (12:36→18:20)
[2021-10-04 22:09] LABS: HEMATOCRIT 29.6 % (36.0-47.0); HEMOGLOBIN 8.6 g/dl (12.0-15.5)
[2021-10-05 05:57] LABS: BASO % 0.1 % (0.0-1.0); EOS # 0.1 10^3/uL (0.0-0.5); EOS % 0.8 % (0.0-3.0); HEMATOCRIT 30.8 % (36.0-47.0); HEMOGLOBIN 8.9 g/dl (12.0-15.5); LYMPH # 0.3 10^3/uL (1.5-5.0); LYMPH % 3.2 % (24.0-44.0); MEAN CORPUSCULAR HEMOGLOBIN 28.1 pg (27.0-33.0); MEAN CORPUSCULAR HGB CONC 28.9 g/dl (32.0-36.5); MEAN CORPUSCULAR VOLUME 97.2 fl (80.0-96.0); MONO # 0.3 10^3/uL (0.0-0.8); MONO % 2.6 % (2.0-8.0); NEUTROPHILS # 9.8 10^3/uL (1.5-8.5); NEUTROPHILS % 92.7 % (36.0-66.0); RED BLOOD COUNT 3.17 10^6/uL (4.00-5.40); WHITE BLOOD COUNT 10.6 10^3/uL (4.0-10.0)
[2021-10-05 05:59] LABS: PLATELET COUNT, AUTOMATED 65 10^3/uL (150-450)
[2021-10-05 06:00] VITALS: BP 103/54
[2021-10-05] MEDS: SODIUM CHLORIDE 0.9% INJ 10 ML SYR IV SCH ×2 (06:01→16:56)
[2021-10-05 06:28] LABS: BLOOD UREA NITROGEN 31 MG/DL (7-18); CARBON DIOXIDE LEVEL 44 MEQ/L (21-32); CHLORIDE LEVEL 103 MEQ/L (98-107); CREATININE FOR GFR 0.66 MG/DL (0.55-1.30); GLOMERULAR FILTRATION RATE > 60.0 (>32); GLUCOSE, FASTING 92 MG/DL (70-100); POTASSIUM SERUM 3.6 MEQ/L (3.5-5.1); SODIUM LEVEL 147 MEQ/L (136-145)
[2021-10-05] MEDS: HumaLOG INSULIN (NovoLOG) PER UNIT SC SCH ×4 (07:30→21:00)
[2021-10-05] MEDS ORDERED: D5W 1,000 ML IV SCH (07:35)
[2021-10-05] MEDS ORDERED: LEVALBUTEROL 1.25 MG/0.5 ML CONCENTRATE NEB INH PRN (07:40)
[2021-10-05 08:05] LABS: NT-PRO BNP 916 PG/ML (<450)
[2021-10-05] MEDS: LEVALBUTEROL 1.25 MG/0.5 ML CONCENTRATE NEB INH SCH ×7 (08:11→18:47)
[2021-10-05 08:46] LABS: INR 0.96; PROTHROMBIN TIME 13.2 SECONDS (12.7-14.5)
[2021-10-05 08:47] LABS: PARTIAL THROMBOPLASTIN TIME 28.6 SECONDS (25.9-37.0)
[2021-10-05 08:49] LABS: D-DIMER QUANT 2659.18 ng/ml (<500)
[2021-10-05] MEDS: SUCRALFATE 1 GM TAB PO SCH ×2 (09:47→13:27)
[2021-10-05] MEDS: LACTOBACILLUS ACIDOPHILUS CAP (BACID) PO SCH ×2 (09:48→15:00)
[2021-10-05] MEDS: PRAVASTATIN 20 MG TAB PO SCH (09:56)
[2021-10-05] MEDS: predniSONE 10 MG TAB PO SCH (09:56)
[2021-10-05] MEDS: MIDODRINE 5 MG TAB PO SCH ×3 (09:56→14:59)
[2021-10-05] MEDS: guaiFENesin ER 600 MG TAB PO SCH ×2 (09:57→21:00)
[2021-10-05] MEDS: PANTOPRAZOLE 40MG TAB (PROTONIX) PO SCH (09:57)
[2021-10-05] MEDS: NYSTATIN 100,000 UNITS/GM TOPICAL PWD 15 GM TOP SCH ×2 (09:57→21:47)
[2021-10-05 14:00] VITALS: BP 123/65
[2021-10-05] MEDS: KCL 20MEQ IN D5W 1000ML 1,000 ML IV SCH (14:59)
[2021-10-05] MEDS: FUROSEMIDE 40MG/4ML VIAL (J1940) IV SCH ×2 (14:59→21:46)
[2021-10-05 21:00] VITALS: BP 115/57
[2021-10-05] MEDS: PANTOPRAZOLE 40MG VIAL (C9113 PER 1) IV SCH (21:47)
[2021-10-06] MEDS: LEVALBUTEROL 1.25 MG/0.5 ML CONCENTRATE NEB INH SCH ×7 (04:00→23:32)
[2021-10-06 05:26] LABS: BASO % 0.1 % (0.0-1.0); EOS # 0.1 10^3/uL (0.0-0.5); EOS % 0.5 % (0.0-3.0); HEMATOCRIT 30.9 % (36.0-47.0); HEMOGLOBIN 9.1 g/dl (12.0-15.5); LYMPH # 0.3 10^3/uL (1.5-5.0); LYMPH % 2.3 % (24.0-44.0); MEAN CORPUSCULAR HEMOGLOBIN 28.2 pg (27.0-33.0); MEAN CORPUSCULAR HGB CONC 29.4 g/dl (32.0-36.5); MEAN CORPUSCULAR VOLUME 95.7 fl (80.0-96.0); MONO # 0.3 10^3/uL (0.0-0.8); NEUTROPHILS # 12.8 10^3/uL (1.5-8.5); NEUTROPHILS % 94.7 % (36.0-66.0); RED BLOOD COUNT 3.23 10^6/uL (4.00-5.40); WHITE BLOOD COUNT 13.5 10^3/uL (4.0-10.0)
[2021-10-06 05:29] LABS: PLATELET COUNT, AUTOMATED 66 10^3/uL (150-450)
[2021-10-06 05:40] VITALS: BP 117/46
[2021-10-06 05:48] LABS: ALBUMIN 2.2 GM/DL (3.2-5.2); BLOOD UREA NITROGEN 27 MG/DL (7-18); CALCIUM LEVEL 7.9 MG/DL (8.8-10.2); CARBON DIOXIDE LEVEL 44 MEQ/L (21-32); CHLORIDE LEVEL 100 MEQ/L (98-107); CREATININE FOR GFR 0.58 MG/DL (0.55-1.30); GLOMERULAR FILTRATION RATE > 60.0 (>32); GLUCOSE, FASTING 109 MG/DL (70-100); PHOSPHORUS LEVEL 2.7 MG/DL (2.5-4.9); POTASSIUM SERUM 3.7 MEQ/L (3.5-5.1); SODIUM LEVEL 144 MEQ/L (136-145)
[2021-10-06] MEDS: SODIUM CHLORIDE 0.9% INJ 10 ML SYR IV SCH ×2 (06:00→17:57)
[2021-10-06] MEDS: HumaLOG INSULIN (NovoLOG) PER UNIT SC SCH ×4 (07:30→21:00)
[2021-10-06] MEDS: FUROSEMIDE 40MG/4ML VIAL (J1940) IV SCH ×3 (07:34→22:33)
[2021-10-06] MEDS: MIDODRINE 5 MG TAB PO SCH ×4 (08:00→18:41)
[2021-10-06] MEDS: LACTOBACILLUS ACIDOPHILUS CAP (BACID) PO SCH ×3 (08:00→18:00)
[2021-10-06] MEDS: predniSONE 10 MG TAB PO SCH (08:21)
[2021-10-06] MEDS: PRAVASTATIN 20 MG TAB PO SCH (08:21)
[2021-10-06] MEDS: guaiFENesin ER 600 MG TAB PO SCH ×2 (08:21→21:00)
[2021-10-06] MEDS: PANTOPRAZOLE 40MG VIAL (C9113 PER 1) IV SCH ×2 (10:12→21:00)
[2021-10-06] MEDS: NYSTATIN 100,000 UNITS/GM TOPICAL PWD 15 GM TOP SCH ×2 (10:12→21:00)
[2021-10-06] MEDS: KCL 20MEQ IN D5W 1000ML 1,000 ML IV SCH (12:57)
[2021-10-06 13:27] LABS: ABG BASE EXCESS 14.4 (-2.0-2.0); ABG HCO3 42.3 MEQ/L (22.0-26.0); ABG O2 SATURATION 97.1 % (95.0-99.0); ABG PARTIAL PRESSURE O2 90.8 mmHg (75.0-100.0); ABG STANDARD HCO3 38.2 MEQ/L (22.0-26.0); ABG TOTAL CO2 44.5 MEQ/L (23.0-31.0); ABG pH (ARTERIAL) 7.379 UNITS (7.350-7.450)
[2021-10-06 13:31] LABS: ABG PARTIAL PRESSURE CO2 73.3 mmHg (35.0-45.0)
[2021-10-06 14:05] VITALS: BP 109/56
[2021-10-06 14:15] VITALS: BP 109/56
[2021-10-06] MEDS ORDERED: METOPROLOL TART 25 MG TABLET PO ONE (14:15)
[2021-10-06] MEDS ORDERED: FUROSEMIDE 40MG/4ML VIAL (J1940) IV ONE (14:15)
[2021-10-06] MEDS ORDERED: ONDANSETRON 4MG/2ML VIAL IV PRN (17:15)
[2021-10-06 17:55] VITALS: BP 100/58
[2021-10-06] MEDS: DIGOXIN INJ 0.5 MG/2 ML AMP (J1160) IV SCH ×2 (17:57→22:42)
[2021-10-06 19:10] LABS: CK-MB VALUE MASS 3.2 NG/ML (<3.6); MB/CK RELATIVE INDEX 5.82 (< OR =4)
[2021-10-06 20:00] VITALS: BP 123/56
[2021-10-06 20:18] VITALS: BP 117/67
[2021-10-07] VITALS: BP 104/55
[2021-10-07] MEDS: LEVALBUTEROL 1.25 MG/0.5 ML CONCENTRATE NEB INH SCH ×5 (03:26→20:00)
[2021-10-07 04:00] LABS: ABG HCO3 45.4 MEQ/L (22.0-26.0); ABG O2 SATURATION 90.4 % (95.0-99.0); ABG STANDARD HCO3 41.8 MEQ/L (22.0-26.0); ABG TOTAL CO2 47.6 MEQ/L (23.0-31.0)
[2021-10-07 04:02] LABS: ABG PARTIAL PRESSURE CO2 71.6 mmHg (35.0-45.0)
[2021-10-07 04:03] VITALS: BP 136/58
[2021-10-07] MEDS: DIGOXIN INJ 0.5 MG/2 ML AMP (J1160) IV SCH (04:07)
[2021-10-07] MEDS: SODIUM CHLORIDE 0.9% INJ 10 ML SYR IV SCH ×2 (05:00→18:10)
[2021-10-07] MEDS: FUROSEMIDE 40MG/4ML VIAL (J1940) IV SCH ×3 (05:18→21:33)
[2021-10-07 05:59] LABS: BASO % 0.1 % (0.0-1.0); EOS # 0.1 10^3/uL (0.0-0.5); EOS % 0.7 % (0.0-3.0); HEMATOCRIT 31.1 % (36.0-47.0); HEMOGLOBIN 9.4 g/dl (12.0-15.5); LYMPH # 0.3 10^3/uL (1.5-5.0); LYMPH % 2.9 % (24.0-44.0); MEAN CORPUSCULAR HGB CONC 30.2 g/dl (32.0-36.5); MEAN CORPUSCULAR VOLUME 92.6 fl (80.0-96.0); MONO # 0.2 10^3/uL (0.0-0.8); MONO % 2.2 % (2.0-8.0); NEUTROPHILS # 8.4 10^3/uL (1.5-8.5); NEUTROPHILS % 93.5 % (36.0-66.0); PLATELET COUNT, AUTOMATED 65 10^3/uL (150-450); RED BLOOD COUNT 3.36 10^6/uL (4.00-5.40)
[2021-10-07 07:01] LABS: ALBUMIN 2.1 GM/DL (3.2-5.2); BLOOD UREA NITROGEN 24 MG/DL (7-18); CARBON DIOXIDE LEVEL 46 MEQ/L (21-32); CHLORIDE LEVEL 98 MEQ/L (98-107); DIGOXIN LEVEL 1.2 NG/ML (0.5-2.0); GLOMERULAR FILTRATION RATE > 60.0 (>32); GLUCOSE, FASTING 81 MG/DL (70-100); PHOSPHORUS LEVEL 2.7 MG/DL (2.5-4.9); POTASSIUM SERUM 3.1 MEQ/L (3.5-5.1); SODIUM LEVEL 146 MEQ/L (136-145)
[2021-10-07] MEDS: HumaLOG INSULIN (NovoLOG) PER UNIT SC SCH ×4 (07:30→20:51)
[2021-10-07 08:00] VITALS: BP 126/65
[2021-10-07] MEDS: LACTOBACILLUS ACIDOPHILUS CAP (BACID) PO SCH ×2 (08:34→18:30)
[2021-10-07] MEDS: KCL 10MEQ/100ML SWI (KRUN) 10 MEQ in IV 1 EA IV SCH ×2 (08:34→11:14)
[2021-10-07] MEDS: PANTOPRAZOLE 40MG VIAL (C9113 PER 1) IV SCH ×2 (08:34→21:32)
[2021-10-07] MEDS: MIDODRINE 5 MG TAB PO SCH ×3 (08:34→16:35)
[2021-10-07] MEDS: PRAVASTATIN 20 MG TAB PO SCH (08:35)
[2021-10-07] MEDS: NYSTATIN 100,000 UNITS/GM TOPICAL PWD 15 GM TOP SCH ×2 (08:35→21:34)
[2021-10-07] MEDS: predniSONE 10 MG TAB PO SCH (08:35)
[2021-10-07] MEDS: guaiFENesin ER 600 MG TAB PO SCH ×2 (08:35→21:33)
[2021-10-07] MEDS ORDERED: VARIBAR PUDDING 40% w/v 230ML TUBE As Ordered ONE (09:05)
[2021-10-07] MEDS ORDERED: BARIUM SULFATE 700 MG TABLET (E-Z-DISK) As Ordered ONE (09:05)
[2021-10-07] MEDS ORDERED: VARIBAR NECTAR 40% w/v 240ML SUSP BTL As Ordered ONE (09:05)
[2021-10-07] MEDS ORDERED: E-Z-PAQUE 96% w/w SUSP 176GM BTL As Ordered ONE (09:05)
[2021-10-07] MEDS ORDERED: PILL CUTTER 1 EACH XX PRN (12:05)
[2021-10-07 12:10] VITALS: BP 114/57
[2021-10-07 16:00] VITALS: BP 111/74
[2021-10-07 20:00] VITALS: BP 132/78
[2021-10-08] VITALS (7 sets, daily range): BP systolic 116–132; BP diastolic 52–89
[2021-10-08] MEDS: LEVALBUTEROL 1.25 MG/0.5 ML CONCENTRATE NEB INH SCH ×3 (00:25→08:26)
[2021-10-08] MEDS: SODIUM CHLORIDE 0.9% INJ 10 ML SYR IV SCH ×2 (06:01→17:36)
[2021-10-08] MEDS: FUROSEMIDE 40MG/4ML VIAL (J1940) IV SCH ×3 (06:01→22:22)
[2021-10-08 06:19] LABS: HEMATOCRIT 32.6 % (36.0-47.0); HEMOGLOBIN 9.7 g/dl (12.0-15.5); MEAN CORPUSCULAR HEMOGLOBIN 27.6 pg (27.0-33.0); MEAN CORPUSCULAR HGB CONC 29.8 g/dl (32.0-36.5); MEAN CORPUSCULAR VOLUME 92.9 fl (80.0-96.0); PLATELET COUNT, AUTOMATED 64 10^3/uL (150-450); RED BLOOD COUNT 3.51 10^6/uL (4.00-5.40); WHITE BLOOD COUNT 7.7 10^3/uL (4.0-10.0)
[2021-10-08 06:50] LABS: ALBUMIN 2.3 GM/DL (3.2-5.2); BLOOD UREA NITROGEN 23 MG/DL (7-18); CALCIUM LEVEL 7.8 MG/DL (8.8-10.2); CARBON DIOXIDE LEVEL 47 MEQ/L (21-32); CHLORIDE LEVEL 95 MEQ/L (98-107); CREATININE FOR GFR 0.57 MG/DL (0.55-1.30); GLOMERULAR FILTRATION RATE > 60.0 (>32); GLUCOSE, FASTING 74 MG/DL (70-100); PHOSPHORUS LEVEL 3.5 MG/DL (2.5-4.9); SODIUM LEVEL 145 MEQ/L (136-145)
[2021-10-08 06:57] LABS: LYMPHOCYTES 4 % (16-44); MONOCYTES 1 % (0-5); NEUTROPHILS 95 % (28-66); PLATELET ESTIMATE DECREASED (NORMAL)
[2021-10-08] MEDS: HumaLOG INSULIN (NovoLOG) PER UNIT SC SCH ×4 (07:30→20:12)
[2021-10-08] MEDS: MIDODRINE 5 MG TAB PO SCH ×2 (08:00→08:06)
[2021-10-08] MEDS: PANTOPRAZOLE 40MG VIAL (C9113 PER 1) IV SCH ×2 (08:05→20:37)
[2021-10-08] MEDS: guaiFENesin ER 600 MG TAB PO SCH ×2 (08:06→20:37)
[2021-10-08] MEDS: LACTOBACILLUS ACIDOPHILUS CAP (BACID) PO SCH ×2 (08:06→17:35)
[2021-10-08] MEDS: NYSTATIN 100,000 UNITS/GM TOPICAL PWD 15 GM TOP SCH ×2 (08:07→20:37)
[2021-10-08] MEDS: predniSONE 10 MG TAB PO SCH (08:07)
[2021-10-08] MEDS: PRAVASTATIN 20 MG TAB PO SCH (08:07)
[2021-10-08] MEDS ORDERED: POTASSIUM CHLORIDE 10MEQ SR TABLET PO ONE (09:00)
[2021-10-08] MEDS: MIDODRINE 2.5 MG TAB PO SCH ×3 (09:29→16:35)
[2021-10-09] VITALS: BP 149/57
[2021-10-09 05:10] VITALS: BP 136/62
[2021-10-09] MEDS: SODIUM CHLORIDE 0.9% INJ 10 ML SYR IV SCH ×2 (06:02→18:18)
[2021-10-09] MEDS: FUROSEMIDE 40MG/4ML VIAL (J1940) IV SCH ×3 (06:02→21:24)
[2021-10-09] MEDS: HumaLOG INSULIN (NovoLOG) PER UNIT SC SCH ×4 (07:30→19:59)
[2021-10-09] MEDS: MIDODRINE 2.5 MG TAB PO SCH ×3 (08:00→16:01)
[2021-10-09 08:24] VITALS: BP 134/60
[2021-10-09 08:52] LABS: ALBUMIN 1.6 GM/DL (3.2-5.2); BLOOD UREA NITROGEN 30 MG/DL (7-18); CALCIUM LEVEL 7.5 MG/DL (8.8-10.2); CARBON DIOXIDE LEVEL 43 MEQ/L (21-32); CHLORIDE LEVEL 95 MEQ/L (98-107); CREATININE FOR GFR 0.72 MG/DL (0.55-1.30); GLOMERULAR FILTRATION RATE > 60.0 (>32); GLUCOSE, FASTING 87 MG/DL (70-100); PHOSPHORUS LEVEL 4.1 MG/DL (2.5-4.9); SODIUM LEVEL 141 MEQ/L (136-145)
[2021-10-09] MEDS: NYSTATIN 100,000 UNITS/GM TOPICAL PWD 15 GM TOP SCH ×2 (09:19→21:23)
[2021-10-09] MEDS: PANTOPRAZOLE 40MG VIAL (C9113 PER 1) IV SCH ×2 (09:19→21:23)
[2021-10-09] MEDS: guaiFENesin ER 600 MG TAB PO SCH ×2 (09:19→21:23)
[2021-10-09] MEDS: PRAVASTATIN 20 MG TAB PO SCH (09:20)
[2021-10-09] MEDS: predniSONE 10 MG TAB PO SCH (09:20)
[2021-10-09] MEDS: LACTOBACILLUS ACIDOPHILUS CAP (BACID) PO SCH ×2 (09:20→18:18)
[2021-10-09 09:26] LABS: HEMATOCRIT 30.5 % (36.0-47.0); MEAN CORPUSCULAR HEMOGLOBIN 27.6 pg (27.0-33.0); MEAN CORPUSCULAR HGB CONC 29.5 g/dl (32.0-36.5); MEAN CORPUSCULAR VOLUME 93.6 fl (80.0-96.0); RED BLOOD COUNT 3.26 10^6/uL (4.00-5.40); WHITE BLOOD COUNT 5.1 10^3/uL (4.0-10.0)
[2021-10-09 09:28] LABS: PLATELET COUNT, AUTOMATED 59 10^3/uL (150-450)
[2021-10-09 09:49] LABS: EOSINOPHILS 1 % (0-3); LYMPHOCYTES 8 % (16-44); MONOCYTES 3 % (0-5); NEUTROPHILS 88 % (28-66)
[2021-10-09 09:50] LABS: ANISOCYTOSIS 1+; PLATELET ESTIMATE MARKED DECREASE (NORMAL)
[2021-10-09 12:27] VITALS: BP 114/71
[2021-10-09 12:52] LABS: BLOOD UREA NITROGEN 30 MG/DL (7-18); CALCIUM LEVEL 7.9 MG/DL (8.8-10.2); CARBON DIOXIDE LEVEL 52 MEQ/L (21-32); CHLORIDE LEVEL 93 MEQ/L (98-107); CREATININE FOR GFR 0.73 MG/DL (0.55-1.30); GLOMERULAR FILTRATION RATE > 60.0 (>32); GLUCOSE, FASTING 133 MG/DL (70-100); POTASSIUM SERUM 3.5 MEQ/L (3.5-5.1); SODIUM LEVEL 144 MEQ/L (136-145)
[2021-10-09] MEDS ORDERED: POTASSIUM CHLORIDE 10MEQ SR TABLET PO ONE (13:00)
[2021-10-09 15:29] VITALS: BP 110/55
[2021-10-09 20:00] VITALS: BP 114/59
[2021-10-10] VITALS (7 sets, daily range): BP systolic 99–122; BP diastolic 51–72
[2021-10-10] MEDS: FUROSEMIDE 40MG/4ML VIAL (J1940) IV SCH (05:39)
[2021-10-10] MEDS: SODIUM CHLORIDE 0.9% INJ 10 ML SYR IV SCH ×2 (05:39→18:21)
[2021-10-10 07:16] LABS: EOS # 0.1 10^3/uL (0.0-0.5); EOS % 2.6 % (0.0-3.0); HEMATOCRIT 28.9 % (36.0-47.0); HEMOGLOBIN 8.4 g/dl (12.0-15.5); LYMPH # 0.4 10^3/uL (1.5-5.0); LYMPH % 9.3 % (24.0-44.0); MEAN CORPUSCULAR HEMOGLOBIN 27.4 pg (27.0-33.0); MEAN CORPUSCULAR HGB CONC 29.1 g/dl (32.0-36.5); MEAN CORPUSCULAR VOLUME 94.1 fl (80.0-96.0); MONO # 0.2 10^3/uL (0.0-0.8); MONO % 3.8 % (2.0-8.0); NEUTROPHILS # 3.5 10^3/uL (1.5-8.5); NEUTROPHILS % 83.8 % (36.0-66.0); PLATELET COUNT, AUTOMATED 65 10^3/uL (150-450); RED BLOOD COUNT 3.07 10^6/uL (4.00-5.40); WHITE BLOOD COUNT 4.2 10^3/uL (4.0-10.0)
[2021-10-10] MEDS: HumaLOG INSULIN (NovoLOG) PER UNIT SC SCH ×4 (07:30→20:37)
[2021-10-10 07:49] LABS: ALBUMIN 2.1 GM/DL (3.2-5.2); BLOOD UREA NITROGEN 35 MG/DL (7-18); CALCIUM LEVEL 8.3 MG/DL (8.8-10.2); CARBON DIOXIDE LEVEL 53 MEQ/L (21-32); CHLORIDE LEVEL 92 MEQ/L (98-107); CREATININE FOR GFR 0.68 MG/DL (0.55-1.30); GLOMERULAR FILTRATION RATE > 60.0 (>32); GLUCOSE, FASTING 99 MG/DL (70-100); PHOSPHORUS LEVEL 2.7 MG/DL (2.5-4.9); SODIUM LEVEL 141 MEQ/L (136-145)
[2021-10-10] MEDS: MIDODRINE 2.5 MG TAB PO SCH ×3 (08:00→16:59)
[2021-10-10] MEDS: predniSONE 10 MG TAB PO SCH (08:39)
[2021-10-10] MEDS: PANTOPRAZOLE 40MG VIAL (C9113 PER 1) IV SCH ×2 (08:39→20:38)
[2021-10-10] MEDS: LACTOBACILLUS ACIDOPHILUS CAP (BACID) PO SCH ×2 (08:40→18:21)
[2021-10-10] MEDS: PRAVASTATIN 20 MG TAB PO SCH (08:40)
[2021-10-10] MEDS: guaiFENesin ER 600 MG TAB PO SCH ×2 (08:40→20:37)
[2021-10-10] MEDS: NYSTATIN 100,000 UNITS/GM TOPICAL PWD 15 GM TOP SCH ×2 (08:40→20:44)
[2021-10-11] MEDS: SODIUM CHLORIDE 0.9% INJ 10 ML SYR IV SCH ×2 (05:21→17:53)
[2021-10-11 05:38] VITALS: BP 122/72
[2021-10-11 06:20] LABS: HEMATOCRIT 28.3 % (36.0-47.0); HEMOGLOBIN 8.5 g/dl (12.0-15.5); MEAN CORPUSCULAR HEMOGLOBIN 28.1 pg (27.0-33.0); MEAN CORPUSCULAR VOLUME 93.7 fl (80.0-96.0); RED BLOOD COUNT 3.02 10^6/uL (4.00-5.40); WHITE BLOOD COUNT 3.2 10^3/uL (4.0-10.0)
[2021-10-11 06:21] LABS: PLATELET COUNT, AUTOMATED 68 10^3/uL (150-450)
[2021-10-11 07:07] LABS: BLOOD UREA NITROGEN 30 MG/DL (7-18); CALCIUM LEVEL 8.1 MG/DL (8.8-10.2); CARBON DIOXIDE LEVEL 51 MEQ/L (21-32); CHLORIDE LEVEL 93 MEQ/L (98-107); CREATININE FOR GFR 0.54 MG/DL (0.55-1.30); GLOMERULAR FILTRATION RATE > 60.0 (>32); GLUCOSE, FASTING 84 MG/DL (70-100); PHOSPHORUS LEVEL 3.1 MG/DL (2.5-4.9); POTASSIUM SERUM 3.6 MEQ/L (3.5-5.1); SODIUM LEVEL 142 MEQ/L (136-145)
[2021-10-11 07:08] LABS: ATYPICAL LYMPH 1 % (0-5); EOSINOPHILS 7 % (0-3); LYMPHOCYTES 6 % (16-44); MONOCYTES 3 % (0-5); NEUTROPHILS 80 % (28-66)
[2021-10-11 07:11] LABS: PLATELET ESTIMATE DECREASED (NORMAL); SPHEROCYTES 1+
[2021-10-11] MEDS: HumaLOG INSULIN (NovoLOG) PER UNIT SC SCH ×4 (07:30→21:00)
[2021-10-11] MEDS: PRAVASTATIN 20 MG TAB PO SCH (08:56)
[2021-10-11] MEDS: LACTOBACILLUS ACIDOPHILUS CAP (BACID) PO SCH ×2 (08:57→17:52)
[2021-10-11] MEDS: guaiFENesin ER 600 MG TAB PO SCH ×2 (08:58→21:08)
[2021-10-11] MEDS: predniSONE 10 MG TAB PO SCH (08:58)
[2021-10-11] MEDS: MIDODRINE 2.5 MG TAB PO SCH ×3 (09:00→17:51)
[2021-10-11] MEDS: FUROSEMIDE 40 MG TAB PO SCH (09:02)
[2021-10-11] MEDS: PANTOPRAZOLE 40MG VIAL (C9113 PER 1) IV SCH ×2 (09:02→21:08)
[2021-10-11] MEDS: NYSTATIN 100,000 UNITS/GM TOPICAL PWD 15 GM TOP SCH ×2 (09:03→21:09)
[2021-10-11] MEDS: SODIUM CHLORIDE 0.9% INJ 10 ML SYR IV PRN ×2 (09:06→21:11)
[2021-10-11] MEDS: ACETAMINOPHEN 500 MG TAB PO PRN (15:04)
[2021-10-12] MEDS: SODIUM CHLORIDE 0.9% INJ 10 ML SYR IV SCH ×2 (05:50→17:31)
[2021-10-12 06:00] VITALS: BP 104/52
[2021-10-12 06:16] LABS: HEMATOCRIT 26.6 % (36.0-47.0); HEMOGLOBIN 7.8 g/dl (12.0-15.5); MEAN CORPUSCULAR HEMOGLOBIN 27.5 pg (27.0-33.0); MEAN CORPUSCULAR HGB CONC 29.3 g/dl (32.0-36.5); MEAN CORPUSCULAR VOLUME 93.7 fl (80.0-96.0); RED BLOOD COUNT 2.84 10^6/uL (4.00-5.40); WHITE BLOOD COUNT 2.2 10^3/uL (4.0-10.0)
[2021-10-12 06:17] LABS: PLATELET COUNT, AUTOMATED 77 10^3/uL (150-450)
[2021-10-12 06:56] LABS: BLOOD UREA NITROGEN 30 MG/DL (7-18); CALCIUM LEVEL 7.6 MG/DL (8.8-10.2); CARBON DIOXIDE LEVEL 53 MEQ/L (21-32); CHLORIDE LEVEL 93 MEQ/L (98-107); CREATININE FOR GFR 0.53 MG/DL (0.55-1.30); GLOMERULAR FILTRATION RATE > 60.0 (>32); GLUCOSE, FASTING 82 MG/DL (70-100); POTASSIUM SERUM 3.5 MEQ/L (3.5-5.1); SODIUM LEVEL 142 MEQ/L (136-145)
[2021-10-12 07:08] LABS: EOSINOPHILS 8 % (0-3); LYMPHOCYTES 9 % (16-44); MONOCYTES 5 % (0-5); NEUTROPHILS 77 % (28-66); PLATELET ESTIMATE NORMAL (NORMAL)
[2021-10-12 07:10] LABS: SPHEROCYTES 1+
[2021-10-12] MEDS: HumaLOG INSULIN (NovoLOG) PER UNIT SC SCH ×4 (07:24→21:00)
[2021-10-12] MEDS: PANTOPRAZOLE 40MG VIAL (C9113 PER 1) IV SCH ×2 (08:31→21:41)
[2021-10-12] MEDS: predniSONE 10 MG TAB PO SCH (08:32)
[2021-10-12] MEDS: LACTOBACILLUS ACIDOPHILUS CAP (BACID) PO SCH ×2 (08:32→17:17)
[2021-10-12] MEDS: guaiFENesin ER 600 MG TAB PO SCH ×2 (08:32→21:41)
[2021-10-12] MEDS: FUROSEMIDE 40 MG TAB PO SCH (08:32)
[2021-10-12] MEDS: MIDODRINE 2.5 MG TAB PO SCH ×3 (08:32→17:17)
[2021-10-12] MEDS: PRAVASTATIN 20 MG TAB PO SCH (08:32)
[2021-10-12] MEDS: SODIUM CHLORIDE 0.9% INJ 10 ML SYR IV PRN ×2 (08:35→13:17)
[2021-10-12] MEDS: NYSTATIN 100,000 UNITS/GM TOPICAL PWD 15 GM TOP SCH ×2 (09:00→21:41)
[2021-10-12 13:32] LABS: HEMATOCRIT 27.2 % (36.0-47.0); MEAN CORPUSCULAR HEMOGLOBIN 27.5 pg (27.0-33.0); MEAN CORPUSCULAR HGB CONC 29.4 g/dl (32.0-36.5); MEAN CORPUSCULAR VOLUME 93.5 fl (80.0-96.0); RED BLOOD COUNT 2.91 10^6/uL (4.00-5.40); WHITE BLOOD COUNT 2.2 10^3/uL (4.0-10.0)
[2021-10-12 13:58] LABS: PLATELET COUNT, AUTOMATED 83 10^3/uL (150-450)
[2021-10-12 14:00] LABS: PERCENT SATURATION 19.5 % (13.2-45.0)
[2021-10-13 04:52] LABS: HEMATOCRIT 27.8 % (36.0-47.0); HEMOGLOBIN 8.2 g/dl (12.0-15.5); MEAN CORPUSCULAR HEMOGLOBIN 27.5 pg (27.0-33.0); MEAN CORPUSCULAR HGB CONC 29.5 g/dl (32.0-36.5); MEAN CORPUSCULAR VOLUME 93.3 fl (80.0-96.0); PLATELET COUNT, AUTOMATED 89 10^3/uL (150-450); RED BLOOD COUNT 2.98 10^6/uL (4.00-5.40); WHITE BLOOD COUNT 2.4 10^3/uL (4.0-10.0)
[2021-10-13] MEDS: SODIUM CHLORIDE 0.9% INJ 10 ML SYR IV SCH ×2 (05:21→17:08)
[2021-10-13 05:33] LABS: BLOOD UREA NITROGEN 23 MG/DL (7-18); CALCIUM LEVEL 7.6 MG/DL (8.8-10.2); CHLORIDE LEVEL 92 MEQ/L (98-107); CREATININE FOR GFR 0.48 MG/DL (0.55-1.30); GLOMERULAR FILTRATION RATE > 60.0 (>32); GLUCOSE, FASTING 88 MG/DL (70-100); POTASSIUM SERUM 3.7 MEQ/L (3.5-5.1); SODIUM LEVEL 144 MEQ/L (136-145)
[2021-10-13 06:30] LABS: CARBON DIOXIDE LEVEL 52 MEQ/L (21-32)
[2021-10-13 06:33] VITALS: BP 118/67
[2021-10-13] MEDS: HumaLOG INSULIN (NovoLOG) PER UNIT SC SCH ×4 (07:30→21:00)
[2021-10-13 08:00] VITALS: BP 115/67
[2021-10-13] MEDS: LACTOBACILLUS ACIDOPHILUS CAP (BACID) PO SCH ×2 (10:43→17:06)
[2021-10-13] MEDS: PANTOPRAZOLE 40MG VIAL (C9113 PER 1) IV SCH ×2 (10:44→21:05)
[2021-10-13] MEDS: predniSONE 10 MG TAB PO SCH (10:44)
[2021-10-13] MEDS: guaiFENesin ER 600 MG TAB PO SCH ×2 (10:44→21:05)
[2021-10-13] MEDS: PRAVASTATIN 20 MG TAB PO SCH (10:44)
[2021-10-13] MEDS: MIDODRINE 2.5 MG TAB PO SCH ×3 (10:44→17:06)
[2021-10-13] MEDS: NYSTATIN 100,000 UNITS/GM TOPICAL PWD 15 GM TOP SCH ×2 (10:47→21:06)
[2021-10-13] MEDS: FUROSEMIDE 40 MG TAB PO SCH (10:48)
[2021-10-13 12:00] VITALS: BP 120/72
[2021-10-13 13:55] VITALS: BP 135/68
[2021-10-13 17:05] VITALS: BP 112/68
[2021-10-13] MEDS: ACETAMINOPHEN 500 MG TAB PO PRN (18:10)
[2021-10-14] MEDS: SODIUM CHLORIDE 0.9% INJ 10 ML SYR IV SCH ×2 (05:47→08:29)
[2021-10-14 06:00] VITALS: BP 143/69
[2021-10-14] MEDS: HumaLOG INSULIN (NovoLOG) PER UNIT SC SCH ×4 (07:25→21:00)
[2021-10-14 08:00] VITALS: BP 122/64
[2021-10-14] MEDS: FUROSEMIDE 40 MG TAB PO SCH (08:26)
[2021-10-14] MEDS: guaiFENesin ER 600 MG TAB PO SCH ×2 (08:26→21:47)
[2021-10-14] MEDS: PRAVASTATIN 20 MG TAB PO SCH (08:27)
[2021-10-14] MEDS: LACTOBACILLUS ACIDOPHILUS CAP (BACID) PO SCH ×2 (08:27→17:58)
[2021-10-14] MEDS: MIDODRINE 2.5 MG TAB PO SCH ×3 (08:27→15:29)
[2021-10-14] MEDS: PANTOPRAZOLE 40MG VIAL (C9113 PER 1) IV SCH ×2 (08:28→21:47)
[2021-10-14] MEDS: NYSTATIN 100,000 UNITS/GM TOPICAL PWD 15 GM TOP SCH ×2 (08:29→21:48)
[2021-10-14] MEDS: predniSONE 10 MG TAB PO SCH (08:39)
[2021-10-14] MEDS: SODIUM CHLORIDE 0.9% INJ 10 ML SYR IV PRN (18:03)
[2021-10-15] MEDS: SODIUM CHLORIDE 0.9% INJ 10 ML SYR IV SCH ×2 (04:51→17:48)
[2021-10-15 05:58] VITALS: BP 128/66
[2021-10-15] MEDS: HumaLOG INSULIN (NovoLOG) PER UNIT SC SCH ×4 (07:30→20:12)
[2021-10-15] MEDS: guaiFENesin ER 600 MG TAB PO SCH ×2 (09:01→20:25)
[2021-10-15] MEDS: FUROSEMIDE 40 MG TAB PO SCH (09:01)
[2021-10-15] MEDS: PANTOPRAZOLE 40MG VIAL (C9113 PER 1) IV SCH ×2 (09:01→20:25)
[2021-10-15] MEDS: PRAVASTATIN 20 MG TAB PO SCH (09:01)
[2021-10-15] MEDS: LACTOBACILLUS ACIDOPHILUS CAP (BACID) PO SCH ×2 (09:01→17:47)
[2021-10-15] MEDS: SODIUM CHLORIDE 0.9% INJ 10 ML SYR IV PRN (09:02)
[2021-10-15] MEDS: MIDODRINE 2.5 MG TAB PO SCH ×3 (09:11→16:31)
[2021-10-15] MEDS: NYSTATIN 100,000 UNITS/GM TOPICAL PWD 15 GM TOP SCH ×2 (09:12→20:25)
[2021-10-15] MEDS: ACETAMINOPHEN 500 MG TAB PO PRN ×2 (09:14→20:25)
[2021-10-15] MEDS: predniSONE 10 MG TAB PO SCH (09:14)
[2021-10-16] MEDS: SODIUM CHLORIDE 0.9% INJ 10 ML SYR IV SCH (05:37)
[2021-10-16 05:53] VITALS: BP 110/56
[2021-10-16] MEDS: HumaLOG INSULIN (NovoLOG) PER UNIT SC SCH ×2 (07:18→12:00)
[2021-10-16] MEDS: LACTOBACILLUS ACIDOPHILUS CAP (BACID) PO SCH (08:14)
[2021-10-16] MEDS: MIDODRINE 2.5 MG TAB PO SCH ×2 (08:17→12:29)
[2021-10-16] MEDS: ACETAMINOPHEN 500 MG TAB PO PRN (08:17)
[2021-10-16 08:53] VITALS: BP 118/64
[2021-10-16] MEDS ORDERED: PANTOPRAZOLE 40MG TAB (PROTONIX) PO SCH (09:00)
[2021-10-16] MEDS: FUROSEMIDE 40 MG TAB PO SCH (09:26)
[2021-10-16] MEDS: guaiFENesin ER 600 MG TAB PO SCH (09:27)
[2021-10-16] MEDS: PRAVASTATIN 20 MG TAB PO SCH (09:27)
[2021-10-16] MEDS: predniSONE 10 MG TAB PO SCH (09:27)
[2021-10-16] MEDS: NYSTATIN 100,000 UNITS/GM TOPICAL PWD 15 GM TOP SCH (09:28)
[2021-10-16] MEDS ORDERED: MIDO2.5T PO (10:31)
[2021-10-16] MEDS ORDERED: PANT40TA29 PO (10:31)
[2021-10-16] MEDS ORDERED: FURO40TA2 PO (10:31)
== END 2021-10-16 13:36 | DRG 291 ==
LOC: EDBD 08:37 → M ED 08:37 → M ED INP 11:51 → M PCU 17:43 → M ICU 09-16 18:40 → M PCU 09-18 13:53 → M MS5PR 09-24 16:48 → M PCU 09-24 19:55 → M MSPAV 10-03 09:21 → M PCU 10-06 13:52 → M MSPAV 10-10 23:00
PROVIDERS: ADMIT Family Medicine; ATTEND General Practice
PROC: 30233N1 Transfusion of Nonautologous Red Blood Cells into Peripheral Vein, Percutaneous Approach (ICD-10-PCS; principal; 2021-09-07)
PROC: 02HV33Z Insertion of Infusion Device into Superior Vena Cava, Percutaneous Approach (ICD-10-PCS; 2021-09-24)
DX: I13.0 Hypertensive heart and chronic kidney disease with heart failure and stage 1 through stage 4 chronic kidney disease, or unspecified chronic kidney disease (principal); J96.02 Acute respiratory failure with hypercapnia; J18.9 Pneumonia, unspecified organism; J96.01 Acute respiratory failure with hypoxia; G93.41 Metabolic encephalopathy; I50.33 Acute on chronic diastolic (congestive) heart failure; K57.91 Diverticulosis of intestine, part unspecified, without perforation or abscess with bleeding; D62 Acute posthemorrhagic anemia; N17.9 Acute kidney failure, unspecified; B37.0 Candidal stomatitis; E87.0 Hyperosmolality and hypernatremia; E78.5 Hyperlipidemia, unspecified; I35.0 Nonrheumatic aortic (valve) stenosis; E11.9 Type 2 diabetes mellitus without complications; K21.9 Gastro-esophageal reflux disease without esophagitis; E04.2 Nontoxic multinodular goiter; I27.20 Pulmonary hypertension, unspecified; M19.90 Unspecified osteoarthritis, unspecified site; E66.9 Obesity, unspecified; Z99.81 Dependence on supplemental oxygen; J44.9 Chronic obstructive pulmonary disease, unspecified; Z79.899 Other long term (current) drug therapy; Z91.19 Patient's noncompliance with other medical treatment and regimen; N18.30 Chronic kidney disease, stage 3 unspecified; N28.1 Cyst of kidney, acquired; D25.9 Leiomyoma of uterus, unspecified; D69.6 Thrombocytopenia, unspecified; Z68.31 Body mass index [BMI] 31.0-31.9, adult; I95.9 Hypotension, unspecified